=== PATIENT | female | born 1975 | race Caucasian/White ===

== ENCOUNTER 2016-12-27 19:19 | Inpatient (IN) | payer OTHER ==
[~2016-12-27] VITALS: Ht 152.4 cm; Wt 41.9 kg
--- NOTE | ~2016-12-27 | CON ---
[place], [place] REPORT OF CONSULTATION NAME: LEONELA TAYLOR UNIT #: [id number] ROOM: [facility] DOCTOR[facility] [birth year] DOS: GASTRO-ENDOSCOPIC CONSULTATION REPORT HISTORY OF PRESENT ILLNESS: The patient has presented with multiple medical problems, amongst which have been shortness of breath and also subxiphoid pain, dysphagia and therefore the patient was admitted and underwent panel of workup: White blood cells initially was 19, H and H of 10 and 36. Microcytic indices, D-dimer was 0.8, elevated. Comprehensive metabolic panel, electrolyte balance, liver function tests normal. Troponin within normal limits. Chest x-ray and CTA of the chest was performed and there was questionable 2 mm filling defect ____ segmental branch of the left lower pulmonary artery suspected with embolism. Troponin was repeatedly negative. CT scan of the neck was obtained since she was expressing of difficulty swallowing. No acute fracture or pathology identified. Hemoglobin A1c was 5.5. Soft tissue often neck was CT scanned and severe diffuse esophageal supraglottic left tissue thickening, consistent with supraglottitis and no evidence of abscess seen. A swallow study apparently has been done by Speech that has been considered negative. Therefore, we have started on PPI and dose of GI cocktail has been given to see if she feels any improvement in her swallowing. PAST MEDICAL HISTORY: Recent pulmonary embolism, COPD, advanced dependency to nicotine, pulmonary nodules. FAMILY HISTORY: COPD. SOCIAL HISTORY: Aggressive smoker, nonalcohol consumer. PAST SURGICAL HISTORY: Hysterectomy, cholecystectomy, T and A, left lower lung wedge resection, VATS. MEDICATIONS: List has been reviewed. ALLERGIES: To no known medication. REVIEW OF SYSTEMS: HEENT: Denies double vision, blurred vision. RESPIRATORY: Admits to some shortness of breath. CARDIOVASCULAR: Denies chest pain. DIGESTIVE SYSTEM: Difficulty to swallow. PHYSICAL EXAMINATION: GENERAL: Reveals extremely frail patient, anatomically is small in general. HEENT: Head normocephalic, nontraumatic. Mouth and buccal mucosa benign. NECK: Supple. No thyromegaly. No cervical lymphadenopathy. CHEST: Symmetric anatomy, decreased air entry in general. No wheeze. No rhonchi. HEART: Normal sinus rhythm. ABDOMEN: Soft, flat. No pulsatile mass. EXTREMITIES: No cyanosis. No pedal edema. [place], [place] REPORT OF CONSULTATION NAME: LEONELA TAYLOR UNIT #: [id number] ROOM: [facility] DOCTOR: ROSENDA MIX MD BIRTHDATE: [birth year] NEUROLOGIC: Alert, oriented to time, place, person. IMPRESSION: Dysphagia, supraglottitis, etiology unknown, leukocytosis, chronic obstructive pulmonary disease, pulmonary embolism. PLAN AND DISCUSSION: Due to the fact that the patient has acute involvement of pulmonary embolism, endoscopy is postponed. We are going to treat this patient with antibiotic, hoping that etiology of the supraglottitis to be only limited to infection and hopefully is going to be treated meanwhile. A speech evaluation has been done. She has been unable to swallow without any difficulty. Therefore, full liquid and PPI and GI cocktail, otherwise as dictated in past medical and surgical history. OTHER ADJUNCTIVE DIAGNOSES: Fibromyalgia, anxiety, major depression, ovarian carcinoma, status post resection and multiple repairs, status post cholecystectomy, section, oophorectomy, inguinal hernia repair, all have been recognized. Thank you very much indeed. ROSENDA MIX MD CM:CONSTR:REPORT OF CONSULTATION 1409 12/29/16 1036 interface
--- NOTE | ~2016-12-27 | CON ---
[place], [place] REPORT OF CONSULTATION NAME[id number] UNIT #: [id number] ROOM: 425 DOCTOR: CORAL CORDOVA MDDRE BIRTHDATE: [birth year] DOS: 12/28/2016 CONSULTATION REQUESTED BY: Hospitalist services. HISTORY OF PRESENT ILLNESS: A 41-year-old female who has been known to me from the past. The patient has not been seen in the office and did not show for the last appointment after discharge from [facility]. 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 The patient reported to the Emergency Room this morning, as she has been noted progressive increased coughing ongoing for the past 2 weeks, greater of the coughing has been noted moderate to severe with sputum expectoration intermittently. The patient was also noted symptoms of shortness of breath. The pain was described in the retrosternal area, worsened with deep inspiratory effort as well. She stated that she has also developed difficulty of swallowing and noted with quiet pain with swallowing, not able to eat or drink any food at this time in the last couple of days. The sputum expectoration described to be color of yellowish to green at that time. She denies symptoms of hemoptysis or recurrent symptom. As the patient presented to the Emergency Room, she has a CT of the chest done which was described with possibility of pulmonary embolism questionable in the left lower lobe pulmonary arterial branches. REVIEW OF SYSTEMS: CONSTITUTIONAL: Symptoms of fatigue and tiredness noted without symptoms of fever or chills. EYES: Denies any burning, redness, or tenderness. EAR, NOSE, THROAT SYMPTOMS: Denies sore throat, hoarseness, otalgia, postnasal drainage or epistaxis. CARDIOVASCULAR: Denies anginal pain, palpitations, edema of the lower extremities. GASTROINTESTINAL: Symptoms of dysphagia as noted and odynophagia without any recent weight loss described. The patient stated she has been noted dry heaves as well. Denies symptoms of abdominal pain. Denies any symptoms of hematemesis, melena, or hematochezia. MUSCULOSKELETAL: Denies acute joint pain, redness, or tenderness. SKIN: Denies lesions or rashes. GENITOURINARY: Denies any symptoms of dysuria, suprapubic pain, hematuria. CENTRAL NERVOUS SYSTEM: Denies dizziness, headache, diplopia or syncopal episodes. Remaining systems were reviewed, they were noted all negative. PAST MEDICAL HISTORY: 1. 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 2. History of chronic obstructive pulmonary disease. 3. History of chronic nicotine dependence. 4. Vitamin D deficiency. 5. Pulmonary nodules, which are noted as a result of the pulmonary Langerhans cell histiocytosis in the CT scan of the chest in 2016. [place], [place] REPORT OF CONSULTATION NAME: LEONELA TAYLOR UNIT #: [id number] ROOM: 425 DOCTOR: CORAL CORDOVA MD,DRE BIRTHDATE: [birth year] FAMILY HISTORY: Mother for the patient at 55 due to complications of COPD. History about father was unknown. SOCIAL HISTORY: The patient is , has 4 children, lived at home. She has been noted active tobacco use, continues to smoke cigarettes. The patient since teenager, pack of cigarettes per day. Denies any alcohol or illicit drug use or occupation related pulmonary exposure. PAST SURGICAL HISTORY: Noted. 1. Inguinal hernia repair on the right side. 2. Laparoscopic cholecystectomy. 3. . 4. Partial hysterectomy. 5. Ovary removal on the left side previously. 6. T and A. 7. Fiberoptic bronchoscopy on 11/2016. 8. Left upper lung wedge resection with the VATS procedure, which was done on 12/24/2015 with a diagnosis of pulmonary Langerhans cell histiocytosis established at that time. 9. History of hypothyroidism. HOME MEDICATIONS: Reported on admission was noted as use of: 1. Perforomist b.i.d. 2. Pulmicort Respules 0.25 mg b.i.d. 3. Ventolin HFA inhaler p.r.n. use. 4. Nifedipine 10 mg p.o. b.i.d. 5. Synthroid 25 mcg daily. ALLERGIES. Noted with no known drug allergies. PHYSICAL EXAMINATION: GENERAL: This is a 41-year-old female without any distress at this time. Height of the patient recorded on admission as 5 feet, weight of 92 pounds. VITAL SIGNS: Showed the temperature 99 degree Fahrenheit, normal temperature, respiratory 24-14, heart rate 60-61, blood pressure 152/80-161/60. Pulse oxygen saturation recorded on 2 liters nasal cannula 98% saturation. HEENT: Shows head was atraumatic. Eyes nonicterus. NECK: Supple. Oral mucosa was dry. CARDIOVASCULAR: S1, S2 audible. LUNGS: With general reduction in the breath sounds with scattered expiratory wheezing, no crackles. ABDOMEN: Flat, soft, nontender. EXTREMITIES: Show no edema, clubbing, cyanosis. CENTRAL NERVOUS SYSTEM: Cranial nerves 2-12 intact. No focal deficit. MUSCULOSKELETAL: Does not show any acute deformities. SKIN: Showed no lesions or rashes. LABORATORY DATA: The D-dimer noted minimally elevated at 0.80 on admission of 12/27/2016 in the ER. CBC in the ER on admission, WBC count 19.1, hemoglobin [place], [place] REPORT OF CONSULTATION NAME: LEONELA TAYLOR UNIT #: [id number] ROOM: 425 DOCTOR: CORAL CORDOVA MD,[facility] BIRTHDATE: [birth year] 10.9, hematocrit 36.7, and platelet 562,000. Order differentials were reported as 84% segmented neutrophils. CMP of 12/27/2016, normal BUN and creatinine and other electrolytes. Lactic acid 1.0 noted this morning. CBC of this morning repeated WBC count 14,000, hemoglobin 9.4, hematocrit 31.1, platelet count 450,000. BMP was noted as normal BUN and creatinine. RADIOLOGY DATA: Review chest x-ray that were done 12/27/2016 shows small area of scarring hyperinflation of the lungs without any acute pulmonary abnormalities. CT of the chest done on 12/27/2016 shows it was compared to the previous CT scan of the chest of 11/06/2015, resolution previous noted bilateral radicular nodular opacity noted, cyst noted is irregular in the lungs is consistent with past diagnosis of pulmonary histiocytosis, 2 mm filling defect was noted in the left lower pulmonary arterial branches with suspicion of pulmonary embolism. The other findings were not noted any clearcut. Postoperative changes noted in the left upper lobe bacterial resection. IMPRESSION: 1. The patient currently admitted to the hospital. The patient is currently treated for acute exacerbation of chronic obstructive pulmonary disease, acute tracheobronchitis, and acute on chronic nicotine abuse. The patient has a past history and diagnosis of pulmonary Langerhans cell histiocytosis as well. The patient has not been seen in my office after her past hospitalization. Diagnosis was established for pulmonary Langerhans cell histiocytosis. She has an appointment, which was made. The patient did not show up and have not made any further followup appointment. 2. History of hyperthyroidism. 3. Possibility of pulmonary embolism. The patient was also noted arterial pulmonary branches, which remained questionable finding at the present time. 4. The patient with significant odynophagia, rule out any malignant process infection such as herpetic infection, other involving the esophagus and other areas. PLAN OF MANAGEMENT: Agree with use of the Lovenox 1 mg/kg body made for this patient for the medical management of current suspected deep venous thrombosis . For the pulmonary embolism, ultrasound of lower extremity will be obtained to assess the patient's navigation for any clots in the lower extremities. Antibiotics of the patient will be continued. Obtain the sputum for Gram stain and culture as well. Continue antibiotic use of corticosteroids for the management of acute exacerbation of COPD. Continuation of the current antibiotics for the patient as well. The patient needs to be assessed definitely for odynophagia, dysphagia, thickening of the esophagus noted to have personally reviewed. CT of the chest with GI services including strong consideration for upper endoscopy needs to be performed to rule out a malignant process or other abnormalities. Other supportive therapy, plan and management and care. Usual care. She has been ordered nicotine replacement patches. She refused to use them, but they will be available of the patient in no crackles. The patient's medications if she would like to use them, they will be given to this patient. The patient had a detailed discussion about the risk for this patient on progression of the pulmonary Langerhans cell histiocytosis with chronic nicotine dependence. The patient does understand the risk of chronic [place], [place] REPORT OF CONSULTATION NAME: LEONELA TAYLOR [place] UNIT #: [id number] ROOM: 425 DOCTOR: KHOI VALENZUELA MDM BIRTHDATE: [birth year] nicotine dependence. Tobacco cessation was advised the patient once for the last time. The only treatment which has been known for pulmonary Langerhans cell histiocytosis with the lung transplantation. The patient was noted progressive worsening of the respiratory status in future. Thank you for allowing me to participate in the care of this patient. DRE MONCADA MD CM:CONSTR:REPORT OF CONSULTATION 1148 12/29/16 0528 interface
--- NOTE | ~2016-12-27 | PR ---
[place], [place] PROGRESS NOTE NAME: LEONELA TAYLOR UNIT #: [id number] ROOM: [facility] DOCTOR: CORAL CORDOVA MD,DRE BIRTHDATE: [birth year] DOS: 12/29/2016 SUBJECTIVE: She was seen and examined today, 12/29/2016. She has been noted with partial reduction of the respiratory symptoms, still noted significant cough for this patient at this time with some sputum expectoration. The patient denies symptoms of chest pain. Denies any symptoms of chest tightness. OBJECTIVE: VITAL SIGNS: For the patient which were recorded showed temperature noted as 99.3 degrees Fahrenheit and normal temperature, respiratory rate 20, heart rate 60, blood pressure 126/63. Pulse oxygen saturation on 2 L nasal cannula was noted 97% saturation. HEENT: Examination shows no new change. NECK: Supple. CARDIOVASCULAR: S1, S2 audible. LUNGS: Diffuse reduction in breath sounds with expiratory wheezing noted partial decreased from yesterday. ABDOMEN: Soft, nontender and flat. EXTREMITIES: The patient was noted without any edema. LABORATORY DATA: The PT and PTT this morning were noted as normal. BMP of the patient this morning remains normal. The culture of the sputum of the patient was pending from yesterday. The Gram stain showed many white blood cells, few gram-positive cocci in pairs and few gram-positive bacilli. CBC: WBC count 15.7, hemoglobin 9.7, hematocrit 32.2, platelet count 526,000. The patient had ultrasound of bilateral lower extremities, ordered by the primary care attending, was noted essentially without any evidence of deep venous thrombosis. IMPRESSION: 1. The patient who has been currently noted with acute exacerbation of chronic obstructive pulmonary disease, acute tracheobronchitis with history of pulmonary Langerhans cell histiocytosis which has been biopsy proven. 2. Chronic nicotine dependence as well. 3. Leukocytosis secondary to current acute infection. PLAN OF MANAGEMENT: The patient is already getting intravenous antibiotic that will be continued, nicotine replacement patches were ordered. The wheezing were noted only partially decreased from yesterday. The patient stated that she has been seen by hospitality recruiter at [facility] for pulmonary Langerhans cell histiocytosis management and was treated with steroids and currently taking other medications. [place], [place] PROGRESS NOTE NAME: LEONELA TAYLOR UNIT #: [id number] ROOM: [facility] DOCTOR: CORAL CORDOVA MD,DRE BIRTHDATE: [birth year] DRE MONCADA MD CM:PNTRANS [id number] DRE CORDOVA MD 12/30/16 0110 interface
[2016-12-27 01:20] VITALS: BP 152/80
[~2016-12-27 19:19] MED LIST: ATRALIN0.05% TP; AUGMENTIN 875875 MG PO; HYDROCODONE BIT1 T11 PO; MEDROL DOSEPAK4 MG PO; MINOCYCLINE PO; NKHM; NORFLEX100 MG PO; PERCOCET 325 MG1 TA2 PO; PRILOSEC20 MG PO; PROCARDIA10 MG PO; REMERON15 M1 PO; SYMBICORT1 AE1 INH; Synthroid,Levo75 MCG PO; TORADOL10 MG PO; VICODIN 5/500 505 MG; VITAMIN D34000 UNIT PO; ZOLOFT50 MG PO; ZYRTEC-D 5 MG-11 TER PO
[2016-12-27 19:27] VITALS: BP 132/98
[2016-12-27] MEDS ORDERED: PREDNISOLONE SO10 MG PO (19:31)
[2016-12-27] MEDS ORDERED: VENTOLIN 02.5 MG/3 M INH (19:32)
[2016-12-27] MEDS ORDERED: PERFOROMIS20 MCG/2 M INH (19:32)
[2016-12-27 20:17] LABS: BASO # 0.1 10*3/uL (0.0-0.1); BASO % 0.3 % (0.0-1.0); EOS # 0.2 10*3/uL (0.0-0.4); EOS % 0.8 % (1.0-4.0); HEMATOCRIT 36.7 % (37.0-47.0); HEMOGLOBIN 10.9 g/dl (12.0-16.0); LYMPH # 1.6 10*3/uL (1.3-4.4); LYMPH % 8.5 % (27.0-41.0); MEAN CELL VOLUME 80.8 fl (81.0-99.0); MEAN CORPUSCULAR HGB CONC 29.7 g/dl (33.0-37.0); MEAN PLATELET VOLUME 9.7 fl (9.6-12.3); MONO # 1.1 10*3/uL (0.1-1.0); MONO % 5.6 % (3.0-9.0); NEUT # 16.1 10*3/uL (2.3-7.9); NEUT % 84.1 % (47.0-73.0); PLATELET COUNT AUTOMATED 562 10*3/uL (130-400); RED BLOOD COUNT 4.54 10*6/uL (4.10-5.10); RED CELL DISTRI WIDTH 15.1 % (0-14.5); WHITE BLOOD COUNT 19.1 10*3/uL (4.8-10.8)
[2016-12-27 20:35] LABS: ALKALINE PHOSPHATASE 81 U/L (45-117); BUN 9 mg/dl (7-24); CHLORIDE 101 mmol/L (98-107); CPK 44 U/L (26-192); CREATININE 0.58 mg/dL (0.55-1.02); SGOT/AST 10 IU/L (3-35); SGPT/ALT 15 U/L (12-78); SODIUM 139 mmol/L (136-145); TOTAL PROTEIN 6.9 gm/dL (6.4-8.2)
[2016-12-27 20:38] LABS: TROPONIN I < 0.015 ng/ml (<0.045)
--- NOTE | 2016-12-28 01:20 | NUR ---
PT. ARRIVED TO FLOOR AT THIS TIME. PT. AMBULATED FROM CART TO BED, GAIT STEADY. NC @3L, O2 DEPENDENT AT HOME, DIMINISHED T/O, DRY COUGH, PT. SOB AT REST, SPO2 100. S1S2, HRR, PPP, NO EDEMA, PT. DENIES CP AT THIS TIME. BS NORMO X 4, PT. DENIES N/V/D. CALL LIGHT WITHIN REACH, BED IN LOWEST POSITION, WHEELS LOCKED. SEE SHIFT ASSESSMENT.
[2016-12-28] MEDS ORDERED: SYNTHROID25 MCG PO (01:23)
[2016-12-28] MEDS ORDERED: BUDESONIDE0.25 MG/2 INH (01:27)
[2016-12-28 01:28] VITALS: BP 152/80
--- NOTE | 2016-12-28 01:28 | NUR ---
MED REC COMPLETE WITH PATIENT ALERT AND ORIENTED
--- NOTE | 2016-12-28 01:40 | NUR ---
NOTIFIED DR. FRITZ THAT MEDREC IS COMPLETE ON PT. AT THIS TIME.
--- NOTE | 2016-12-28 02:41 | NUR ---
PT. OFF UNIT FOR CT OF SPINE. WAITING ON PT AND PTS. ANTIBIOTICS TO START.
[2016-12-28 04:03] LABS: BASO % 0.1 % (0.0-1.0); EOS # 0.1 10*3/uL (0.0-0.4); EOS % 0.8 % (1.0-4.0); HEMATOCRIT 31.1 % (37.0-47.0); HEMOGLOBIN 9.4 g/dl (12.0-16.0); LYMPH # 1.2 10*3/uL (1.3-4.4); LYMPH % 8.7 % (27.0-41.0); MEAN CELL VOLUME 80.6 fl (81.0-99.0); MEAN CORPUSCULAR HGB 24.4 pg (27.0-31.0); MEAN CORPUSCULAR HGB CONC 30.2 g/dl (33.0-37.0); MEAN PLATELET VOLUME 9.1 fl (9.6-12.3); MONO # 0.6 10*3/uL (0.1-1.0); MONO % 4.3 % (3.0-9.0); NEUT % 85.5 % (47.0-73.0); PLATELET COUNT AUTOMATED 450 10*3/uL (130-400); RED BLOOD COUNT 3.86 10*6/uL (4.10-5.10); RED CELL DISTRI WIDTH 15.2 % (0-14.5); WHITE BLOOD COUNT 14.1 10*3/uL (4.8-10.8)
[2016-12-28 04:16] LABS: BUN 9 mg/dl (7-24); CHLORIDE 105 mmol/L (98-107); CREATININE 0.49 mg/dL (0.55-1.02); MAGNESIUM 1.7 mg/dL (1.5-2.1); POTASSIUM 3.8 mmol/L (3.5-5.1); SODIUM 139 mmol/L (136-145)
[2016-12-28 04:21] LABS: CHOLESTEROL 103 mg/dL (<200); HDL CHOLESTEROL 28 mg/dl (40-60); LDL CHOLESTEROL 54 mg/dL (9-159); PHOSPHOROUS 4.3 mg/dL (2.5-4.9); TRIGLYCERIDES 107 mg/dl (<150); VLDL CHOLESTEROL 21 mg/dL (6-40)
[2016-12-28 08:00] VITALS: BP 161/60
--- NOTE | 2016-12-28 08:51 | NUR ---
SPEECH PATHOLOGY Orders for swallowing evaluation received and chart review completed. Evaluation attempted X2 this morning. On both attempts, patient's door was closed and upon entering, she was sound asleep. Will attempt again later. MELANIE NAVARRO MSCCC-SKI PATROLLER
--- NOTE | 2016-12-28 09:07 | NUR ---
DR. MONCADA HERE AND NOTIFIED OF CONSULT.
--- NOTE | 2016-12-28 09:34 | NUR ---
SPEECH PATHOLOGY Bedside swallow eval. completed as per orders. Patient was awake and able to participate. She reported feeling as if something is lodged in her chest, which she has been experiencing since last Sunday. Patient is currently ordered a full liquid diet. She refused any liquid presentations at this time, not even small sips of water, stating " I can't. It's that bad." She was noted to display congested cough at rest and generalized weakness. Oral assessment revealed lingual and buccal skills WNL in terms of strength, ROM and coordination. Labial asymmetry was displayed for retraction. As patient did not consume anything orally during this visit, full assessment of oral and pharyngeal swallowing skills could not be completed. Due to the symptoms she reports, it is recommended that she be seen by a anchor operator to rule out esophageal problems. Patient was educated on results and jihan. from this visit and she verbalized understanding. Patient's nurse was also educated and she reported that patient is scheduled to be seen by Dr. Nix. Will continue to monitor patient's status to determine if speech pathology services are warranted following further assessments by physicians. Refer to report in [email or web address] for further information. Thank you for this referral. MELANIE NAVARRO MSCCC-EDGE TRIMMING MACHINE OPERATOR
[2016-12-28 12:00] VITALS: BP 123/52
--- NOTE | 2016-12-28 15:20 | NUR ---
MEDICATED WITH MORPHINE ORDERED FOR PAIN WHILE SWALLOWING. RATES PAIN A 10 ON A PAIN SCALE OF 1-10.
[2016-12-28 16:00] VITALS: BP 131/63
[2016-12-28] MEDS ORDERED: NEURONTIN300 MG PO (18:23)
[2016-12-28] MEDS ORDERED: VENTOLIN INH (18:26)
[2016-12-28] MEDS ORDERED: SUBOXONE 8 MG-1 EACH SL (18:29)
--- NOTE | 2016-12-28 19:43 | NUR ---
PT TRIED TO START BREATHING TX AND THEN WAS GOING TO THROW UP. PT PLACED BACK ON HER 3L NC AND WAS TOLD WE WOULD COME BACK.
[2016-12-28 20:00] VITALS: BP 168/65
--- NOTE | 2016-12-28 20:00 | NUR ---
PATIENT WAS GIVEN IV ZOFRAN FOR NAUSEA AND ABD CRAMPING. PATIENT DENIES VOMITING BUT SAYS THEY ARE EXPERIENCING HYPERSALIVATION. WILL REASSESS AND MONITOR PATIENT.
--- NOTE | 2016-12-28 20:30 | NUR ---
PATIENT IS SITTING UP IN BED. PATIENT COMPLAINS OF NAUSEA AND CHEST PAIN THAT IS CAUSING DYSPHAGIA. PATIENT IS REFUSING ANY ORAL MEDICATIONS THAT ARE NOT LIQUID. PATIENT WAS PLEASANT UPON ASSESSMENT. PATIENT WAS GIVEN IV MORPHINE PER PATIENT REQUEST VERBALIZING A PAIN LEVEL OF 8/10 ON THE PAIN SCALE. SEE SHIFT ASSESSMENT.
--- NOTE | 2016-12-28 23:08 | NUR ---
IV MORPHINE PER PATIENT REQUEST HAS BEEN EFFECTIVE. PATIENT VERBALIZES A PAIN OF 3/10 AND RESTING COMFORTABLY IN BED.
[2016-12-29] VITALS: BP 121/62
--- NOTE | 2016-12-29 01:08 | NUR ---
PATIENT RESTING IN BED. PATIENT VERBALIZES SOME RELIEF FROM PAIN AND IS ATTEMPTING TO GET SOME SLEEP. PATIENT REORIENTED TO ROOM AND CALL LIGHT SYSTEM REINFORCED. SEE SHIFT ASSESSMENT.
[2016-12-29 06:18] LABS: HEMATOCRIT 32.2 % (37.0-47.0); HEMOGLOBIN 9.7 g/dl (12.0-16.0); MEAN CELL VOLUME 80.7 fl (81.0-99.0); MEAN CORPUSCULAR HGB 24.3 pg (27.0-31.0); MEAN CORPUSCULAR HGB CONC 30.1 g/dl (33.0-37.0); MEAN PLATELET VOLUME 10.1 fl (9.6-12.3); PLATELET COUNT AUTOMATED 526 10*3/uL (130-400); RED BLOOD COUNT 3.99 10*6/uL (4.10-5.10); RED CELL DISTRI WIDTH 15.2 % (0-14.5); WHITE BLOOD COUNT 15.7 10*3/uL (4.8-10.8)
--- NOTE | 2016-12-29 06:28 | NUR ---
PATIENT GIVEN IV MORPHINE FOR SHARP INTENSE CHEST PAIN RATED AN 8/10 ON THE PAIN SCALE. WILL CONTINUE TO MONITOR AND REASSESS.
--- NOTE | 2016-12-29 06:33 | NUR ---
PATIENT IS RESTING IN BED. PATIENT IS HAVING CHEST PAIN THAT IS EXACERBATED BY DEEP BREATHING AND SWALLOWING. PATIENT WAS GIVEN IV MORPHINE THAT HAS BEEN EFFECTIVE AND PATIENT STATES THEY ARE FEELING A LITTLE BETTER AND RATE THEIR PAIN A 6/10. WILL CONTINUE TO MONITOR PATIENT. SEE SHIFT ASSESSMENT.
[2016-12-29 06:34] LABS: BUN 8 mg/dl (7-24); CHLORIDE 103 mmol/L (98-107); CREATININE 0.42 mg/dL (0.55-1.02); IRON 12 ug/dL (50-170); SODIUM 137 mmol/L (136-145); TOTAL IRON BINDING CAPACITY 307 ug/dl (250-450)
[2016-12-29 06:58] LABS: ACT PARTIAL THROMBO TIME 23.1 SECONDS (20.8-31.5)
[2016-12-29 07:07] LABS: PLATELET SUFFICIENCY HIGH (NORMAL); POLYCHROMASIA SLIGHT; TOTAL CELLS COUNTED 100 #CELLS
[2016-12-29 08:00] VITALS: BP 126/63
--- NOTE | 2016-12-29 09:15 | NUR ---
SPEECH PATHOLOGY ATTEMPTED TO EVALUATE PATIENT'S SWALLOWING FUNCTION THIS AM. EXAM COULD NOT BE COMPLETED PATIENT IS CURRENTLY NPO FOR TESTING. SPOKE WITH PATIENT'S RN WHO CONFIRMED THAT PATIENT IS NPO AND WILL LIKELY REMAIN NPO FOR MAJORITY OF THE DAY. POC: WILL EVALUATE PATIENT'S OROPHARYNGEAL SWALLOWING FUNCTION WHEN ABLE. MILO KEMP-FRONT MAN
--- NOTE | 2016-12-29 09:24 | NUR ---
[place] in to talk to patient. Patient states lives at home with . There are few steps in the home. Physician: herbert donato [facility]acy: [facility] Home health services: none Patient's level of ADLs: INDEPENDENT Patient has working utilities: all working DME: none Follow-up physician's appointment after d/c: will be made by hosptialist nurse director upon discharge Does patient want to access PORTAL?: no Discharge plan discussed with patient, patient lives at home with , is independent in adls and ambulation, works, drives, denies any home needs. JOSEPH CASTELLANOS
[2016-12-29 09:32] LABS: FERRITIN 20.5 ng/mL (10.0-291.0)
[2016-12-29 12:00] VITALS: BP 142/64
--- NOTE | 2016-12-29 12:15 | NUR ---
TAKEN DOWN FOR CT SOFT TISSUE NECK.
--- NOTE | 2016-12-29 15:03 | NUR ---
MEDICATED WITH MORPHINE 2MG IV FOR COMPLAINTS OF THROAT PAIN. RATES PAIN A 10 ON A PAIN SCALE OF 1-10.
--- NOTE | 2016-12-29 15:15 | NUR ---
DEMOGRAPHIC'S FAXED TO [facility].
--- NOTE | 2016-12-29 15:22 | NUR ---
DR. MIX NOTIFIED OF CT SOFT TISSUE NECK RESULTS.
--- NOTE | 2016-12-29 15:34 | NUR ---
Shift chart check completed.24 HR chart check completed.
--- NOTE | 2016-12-29 15:50 | NUR ---
[facility]. REPORT GIVEN TO ROM LOPEZ RN.
[2016-12-29 16:00] VITALS: BP 141/65; BP 147/83
--- NOTE | 2016-12-29 16:11 | NUR ---
ON ARRIVAL FROM 4E PATIENT SITTING UP IN BED, ALERT,ORIENTED AND IN NO DISTRESS. NO STRIDOR HEARD, A FEW SCATTERED RHONCHI. OROPHARYNX IS RED WITH A FEW WHITE YELLOW PUSTULES NOTED. THROAT CULTURE COLLECTED PER ORDER. ASC SCREEN DONE. IV FLUIDS CONTINUE AT 100ML/HR. PT HAS AN OCCASIONAL HARSH, PRODUCTIVE COUGH. PT CLAIMS HER SPUTUM IS CLEAR. SEE ALL APPROPRIATE INTERVENTIONS.
[2016-12-29 20:00] VITALS: BP 163/72
--- NOTE | 2016-12-29 20:18 | NUR ---
1919 RESTING IN BED WITH HOB ELEVATED. CALL LIGHT IN REACH. PULSE OX 99% ON 3L. MOIST COUGH CONT. IV FLUIDS INFUSING WELL EDITH. NO RESPIRATORY DISTRESS NOTED 1929 MORPHINE 2MG IV GIVEN FOR C/O'S PAIN. WILL MONITOR. AWAITING CALL FROM [place] FOR TRANSFER.
--- NOTE | 2016-12-29 20:46 | NUR ---
2034 [facility] CALLED US WITH BED. PT INFORMED. HAS NO PREFERENCE FOR AMBULANCE FOR TRANSPORT. THIS HOSPITAL IS OUT OF THE RANGE FOR THE [facility] TO COME FOR PT. WC WORKING ON TRANSPORT NOW. LINE MAINTENANCE TECHNICIAN AWARE. EARLIER PAIN MED EFFECTIVE. PT RESTING IN BED WITH EYES CLOSED.
--- NOTE | 2016-12-29 20:58 | NUR ---
HAVING DIFFICULTY OBTAINED AN ANBULANCE FOR TRANSFER. WAITING ON [facility] TO CALL US BACK WITH FINAL ANSWER REGARDING TRANSFER. WILL CALL [facility] BACK IF UNABLE TO FIND TRANSPORT.
--- NOTE | 2016-12-29 21:18 | NUR ---
PROPER PAPERS SIGNED FOR TRANSFER. PAPERS FAXED TO [facility].
--- NOTE | 2016-12-29 21:50 | NUR ---
[facility] CAN NOT TRANSPORT PT UNTIL AM. WILL CALL [facility] TO ARRANGE POSSIBLE TRANSFER WITH THEM.
--- NOTE | 2016-12-29 22:07 | NUR ---
[facility] NOW CANNOT TAKE PT WITHOUT PRE-AUTHORIZATION FROM INSURANCE COMPANY AND NO ONE IS IN UNTIL SUNDAY AM. [facility] IS AWARE AND BED WILL BE HELD UNTIL THE AM. [facility] IS NOW RE-CALLING AMBULANCE TEAMS FOR AM TRANSPORT.
--- NOTE | 2016-12-29 22:12 | NUR ---
PT RESTING IN BED WITH EYES CLOSED. APPEARS TO BE SLEEPING. NO DISTRESS NOTED. CONDITION GUARDED.
--- NOTE | 2016-12-29 22:25 | NUR ---
DR. LARIOS CALLED - DUE TO DIFFICULTY FINDING GROUND TRANSPORT, [facility] RUNNER NOTIFIED. EXERCISE PHYSIOLOGIST CERTIFIED HERE AND AWARE. [facility] BEING CALLED.
--- NOTE | 2016-12-29 22:32 | NUR ---
[facility] DOES NOT WANT PT SENT BY [facility]. WILL TRY TO MAKE ARRANGEMENTS AND GET BACK TO US.
--- NOTE | 2016-12-29 22:55 | NUR ---
ARRANGEMENTS MADE FOR [facility] TO [facility] PT IN THE AM. DR. RIC WEEKS.
[2016-12-30] VITALS: BP 134/64
--- NOTE | 2016-12-30 00:24 | NUR ---
PT DENIES ANY CHANGE IN SWALLOWING OR BREATHING. NO COMPLAINTS OF DISCOMFORT NOTED. VSS.
--- NOTE | 2016-12-30 01:18 | NUR ---
AMBULANCE COMPANY WILL BE HERE AT APPROXIMATELY 0300 TO TRANSPORT PT. REPORT GIVEN TO WERO VELOZ, AT [facility].
--- NOTE | 2016-12-30 01:44 | NUR ---
PT UP TO VOID. INFORMED HER OF BEING TRANSPORTED AT APPROXIMATELY 0300. I ASKED HER IF THERE WAS ANYONE I COULD CALL. SHE SAID "THEY WILL BE GETTING UP AT 4:00. I WILL CALL THEM AND TELL THEM I'M ON MY WAY THEN." OTHER THAN FATIGUE AND WEAKNESS, NO DISTRESS NOTED OR CONVEYED.
--- NOTE | 2016-12-30 03:24 | NUR ---
[facility] HERE TO GET PT. REPORT GIVEN TO CONCRETE CONVEYOR OPERATOR. ENVELOPE WITH COPIES OF CHART/CDS GIVEN TO CREW. MORPHINE GIVEN PER PT REQUEST FOR PAIN. TWO PURSES, TWO BAGS WITH BELONGINGS (INCLUDING CUP WITH DENTURES IN PLASTIC BAG AND PT PUT CELL PHONE AND PLACEMENT DIRECTOR IN ONE OF HER PURSES). IVF REMOVED FROM IV PUMP TO [facility].
--- NOTE | 2016-12-30 03:28 | NUR ---
PT STATES PAIN RELIEVED FROM MORPHINE ALREADY. SPOKE WITH MAYTE, AT [facility], AND HE WILL TELL MAGDIEL THAT HER PT IS EN ROUTE.
== END 2016-12-30 03:24 | disposition short-term general hospital (02) | DRG 871 ==
LOC: ED 19:19 → 4E 12-28 00:08 → EDHOLD 12-28 00:08 → 4E 12-28 00:15 → ICCU 12-29 16:13
PROVIDERS: Emergency Medicine; Internal Medicine; Student in an Organized Health Care Education/Training Program; ADMIT Internal Medicine
DX: A41.9 Sepsis, unspecified organism (principal); I26.99 Other pulmonary embolism without acute cor pulmonale; J18.9 Pneumonia, unspecified organism; E44.0 Moderate protein-calorie malnutrition; J84.82 Adult pulmonary Langerhans cell histiocytosis; J44.0 Chronic obstructive pulmonary disease with (acute) lower respiratory infection; R13.10 Dysphagia, unspecified; F33.9 Major depressive disorder, recurrent, unspecified; J44.1 Chronic obstructive pulmonary disease with (acute) exacerbation; Z68.1 Body mass index [BMI] 19.9 or less, adult; D50.9 Iron deficiency anemia, unspecified; D47.3 Essential (hemorrhagic) thrombocythemia; F41.1 Generalized anxiety disorder; J20.9 Acute bronchitis, unspecified; E03.9 Hypothyroidism, unspecified; M79.7 Fibromyalgia; K21.9 Gastro-esophageal reflux disease without esophagitis; K27.9 Peptic ulcer, site unspecified, unspecified as acute or chronic, without hemorrhage or perforation; F17.210 Nicotine dependence, cigarettes, uncomplicated; I73.00 Raynaud's syndrome without gangrene; Z91.030 Bee allergy status; Z79.899 Other long term (current) drug therapy; Z90.710 Acquired absence of both cervix and uterus; Z80.9 Family history of malignant neoplasm, unspecified; Z85.43 Personal history of malignant neoplasm of ovary; Z90.49 Acquired absence of other specified parts of digestive tract; Z90.721 Acquired absence of ovaries, unilateral; Z83.6 Family history of other diseases of the respiratory system; Z84.89 Family history of other specified conditions

== ENCOUNTER 2017-04-28 22:13 | Inpatient (IN) | payer OTHER ==
[~2017-04-28] VITALS: Ht 152.4 cm; Wt 43.3 kg
--- NOTE | ~2017-04-28 | O ---
[place], [place] OPERATIVE NOTE NAME: LEONELA TAYLOR UNIT #: [id number] ROOM: 506 DOCTOR: DOMINGUEZ MARIAROSENDA BIRTHDATE: [birth year] DOS: 04/30/2017 GASTROENDOSCOPIC REPORT INDICATIONS: A 41-year-old patient who has presented with chief complaint of profound anemia, hemoglobin of 5, status post multi-transfusion, undergoing investigation. The patient with history of heavy smoking as well as steroid therapy chronically as well as history of pulmonary embolism, and was on Eliquis that she has recently stopped. PROCEDURE: Today's procedure part of investigation is panendoscopy and colonoscopy. PREMEDICATION: Versed and Diprivan. SCOPE: Olympus forward-viewing gastroscope Q10 video. REPORT: After putting the patient in left lateral position and application of lubricant to the scope, the scope was introduced. Thereafter, under direct visualization, advanced through the length of esophagus without difficulty. Gastric pouch was entered. Evidence of gastritis was seen. Antral biopsy was obtained. Duodenal bulb, second and third part within normal limit. The patient was gradually extubated and tolerated the procedure well. IMPRESSION: Gastritis, status post biopsy. We do not have a source of GI blood loss. We are going to proceed with colonoscopy. GASTROENDOSCOPIC REPORT INDICATIONS: A 41-year-old patient who has presented with chief complaint of profound anemia, hemoglobin of and hematocrit 21, status post 3 units packed cell transfusion and improvement of H and H. PROCEDURE: Today's procedure part of investigation is colonoscopy plus polypectomy. PREMEDICATION: Versed and Diprivan. SCOPE: Olympus folding colonoscope 10L video. REPORT: After putting the patient in left lateral position and application of lubricant to the scope, the scope was introduced. Thereafter, under direct visualization, I advanced the length of colon without difficulty. Base of the cecum explored, appendiceal orifice identified, ileocecal valve was defined. No acute pathology identified. A sessile polypoid lesion from sigmoid colon with piecemeal polypectomy removed. The patient was gradually extubated, tolerated procedure well. IMPRESSION: Sessile colonic polyp sigmoid colon, status post piecemeal [place], [place] OPERATIVE NOTE NAME: LEONELA TAYLOR UNIT #: [id number] ROOM: 506 DOCTOR: DOMINGUEZ MARIA,ROSENDA BIRTHDATE: [birth year] polypectomy. PLAN AND DISCUSSION: We have not defined the acute source of bleeding in this patient yet, the etiology could be secondary to chronic Eliquis therapy for past 6 months in addition to Excedrin intake, in addition to steroidal intakes , and combination of mucosal blood loss could be responsible for above. B12 and folate have been within normal limits. Her stool has been guaiac positive. She is an active smoker and her iron studies have been reviewed. Her iron levels have been low and iron supplementation is going to be undertaken. PPI of the choice, omeprazole 20 mg 1 q. day. Thank you very much indeed. ROSENDA MIX MD CM:OPRECORD:OPERATIVE NOTE 23 24 ROESNDA MIX MD 04/30/171923 interface
--- NOTE | ~2017-04-28 | PR ---
[place], [place] PROGRESS NOTE NAME: [id number] UNIT #: [id number] ROOM: 506 DOCTOR: PAULINO HALEY MD BIRTHDATE: [birth year] DOS: 05/02/2017 SUBJECTIVE: The patient is doing better. She started her iron pills. She is awake, alert and responsive. REVIEW OF SYSTEMS HEENT: No trouble swallowing. No double vision. No loss of vision. No pain. ENT AND RESPIRATORY: No wheeze. No change in voice. No cough. No shortness of breath. No coughing up blood. No epistaxis. CARDIOLOGIC: No chest pain. No dizziness. No irregular heartbeat. No leg edema. No palpitations. No shortness of breath. HEMATOLOGIC AND LYMPH: No past transfusion. No fatigue. No loss of appetite. No easy bruising. GASTROENEROLOGIC: No change in bowel habits. No vomiting blood. No abdominal cramping. No nausea. No vomiting. No diarrhea. No constipation. No blood in stool. FEMALE REPRODUCTIVE: No dyspareunia. No pelvic pain. MUSCULOSKELETAL: No back pain. No muscle pain or weakness. No tingling/numbness. UROLOGIC: No pain with urination. No difficulty urinating. No frequent urination. NEUROLOGIC: No burning pain in feet. No trouble with coordination. No loss of consciousness. No headache. No tingling/numbness. No memory loss. PHYSICAL EXAMINATION: GENERAL: Pleasant woman in no acute distress. VITAL SIGNS: Stable. She is afebrile. HEENT: Normocephalic, atraumatic NECK AND THYROID: Supple. No JVD, thyromegaly, or lymphadenopathy. HEART: Normal S1, S2. Regular rate and rhythm. LUNGS: Clear to auscultation and percussion. ABDOMEN: Soft. Nontender, nondistended. Bowel sounds present. EXTREMITIES: Normal ROM. No clubbing. No edema. LABORATORY DATA: White count of 11.4, hemoglobin of 9.9, hematocrit 34.8, MCV 76.7, platelet count of 113,000. ASSESSMENT: 1. Iron deficiency anemia. 2. Leukocytosis, reactive. 3. Thrombocytosis, reactive. 4. Status post upper and lower endoscopy, which was negative. PLAN: 1. The patient was started on iron, we will keep a close watch on this. We will further consult appropriately as an outpatient. 2. The counts to improve once her iron . She continues to be low, then further intervention. If she continues to have anemia then further intervention. Follow as outpatient discussed. [place], [place] PROGRESS NOTE NAME: LEONELA TAYLOR UNIT #: [id number] ROOM: 506 DOCTOR: PAULINO HALEY MD BIRTHDATE: [birth year] PAULINO HALEY MD CM:PNTRANS [id number] PAULINO HALEY MD 05/02/17 1706 interface
--- NOTE | ~2017-04-28 | PR ---
[place], [place] PROGRESS NOTE NAME: LEONELA TAYLOR UNIT #: [id number] ROOM: 506 DOCTOR: PAULINO HALEY MD BIRTHDATE: [birth year] DOS: 04/30/2017 The patient was seen because of severe anemia and leukocytosis. A workup has been ordered. Full consult will follow. PAULINO HALEY MD CM:PNTRANS [id number] PAULINO HALEY MD 05/01/17 0118 interface
--- NOTE | ~2017-04-28 | CON ---
[place], [place] REPORT OF CONSULTATION NAME: LEONELA TAYLOR UNIT #: [id number] ROOM: 506 DOCTOR: ROSENDA MIX MD BIRTHDATE: [birth year] DOS: 04/30/2017 HISTORY OF PRESENT ILLNESS: A 41-year-old patient who has presented with profound anemia and with a hemoglobin of 5.5 and hematocrit 21, status post 3 units of packed cell transfusion. The patient has been on Eliquis for pulmonary embolism in past and she has stopped a month ago. PAST MEDICAL HISTORY: Associated fibromyalgia, generalized anxiety, histiocytosis lung, major depression, peptic ulcer disease, Raynaud phenomenon, history of pulmonary embolism. PAST SURGICAL HISTORY: Lung biopsy, cholecystectomy, inguinal hernia repair, oophorectomy, partial hysterectomy, tonsillectomy. SOCIAL HISTORY: Active smoker, nonalcohol consumer. FAMILY HISTORY: Noncontributory. ALLERGIES: BEE STING. MEDICATIONS: List has been reviewed. HOME MEDICATIONS: Nifedipine and Procardia. REVIEW OF SYSTEMS: HEENT: Denies double vision, blurred vision. RESPIRATORY: Some shortness of breath. CARDIOVASCULAR: Denies chest pain. DIGESTIVE SYSTEM: No hematemesis, no hematochezia. PHYSICAL EXAMINATION: VITAL SIGNS: Stable, frail patient. HEENT: Head normocephalic, nontraumatic. Mouth and buccal mucosa benign. NECK: Supple, no thyromegaly, no cervical lymphadenopathy. CHEST: Symmetric anatomy, equal expansion. No wheeze, no rhonchi. HEART: Normal sinus rhythm, no gallop, no murmur. ABDOMEN: Soft. No hepato-organomegaly. Bowel sounds present. EXTREMITIES: No cyanosis, no pedal edema. NEUROLOGIC: Alert, oriented to time, place, person. Sensory, motor intact. Cranial nerves 2-12 intact. LABORATORY DATA: Newest lab results shows H and H of 11 and 33, status post transfusion. PLAN AND DISCUSSION: Comprehensive metabolic panel within normal limits. We are going to proceed with EGD and colonoscopy. Severe anemia is ____. [place], [place] REPORT OF CONSULTATION NAME: LEONELA TAYLOR UNIT #: [id number] ROOM: 506 DOCTOR: ROSENDA MIX MD BIRTHDATE: [birth year] ROSENDA MIX MD CM:CONSTR:REPORT OF CONSULTATION 1758 05/01/17 0403 interface
--- NOTE | ~2017-04-28 | PR ---
[place], [place] PROGRESS NOTE NAME: LEONELA TAYLOR UNIT #: [id number] ROOM: 506 DOCTOR: PAULINO HALEY MD BIRTHDATE: [birth year] DOS: 05/01/2017 SUBJECTIVE: The patient is doing better. She is awake, alert, and responsive. REVIEW OF SYSTEMS HEENT: No trouble swallowing. No double vision. No loss of vision. No pain. ENT AND RESPIRATORY: No wheeze. No change in voice. No cough. No shortness of breath. No coughing up blood. No epistaxis. CARDIOLOGIC: No chest pain. No dizziness. No irregular heartbeat. No leg edema. No palpitations. No shortness of breath. HEMATOLOGIC AND LYMPH: No past transfusion. No fatigue. No loss of appetite. No easy bruising. GASTROENTEROLOGIC: No change in bowel habits. No vomiting blood. No abdominal cramping. No nausea. No vomiting. No diarrhea. No constipation. No blood in stool. FEMALE REPRODUCTIVE: No dyspareunia. No pelvic pain. MUSCULOSKELETAL: No back pain. No muscle pain or weakness. No tingling/numbness. UROLOGIC: No pain with urination. No difficulty urinating. No frequent urination. NEUROLOGIC: No burning pain in feet. No trouble with coordination. No loss of consciousness. No headache. No tingling/numbness. No memory loss. PHYSICAL EXAMINATION GENERAL: A pleasant woman in no apparent distress. VITAL SIGNS: Stable. She is afebrile. HEENT: Normocephalic, atraumatic. NECK AND THYROID: Supple. No JVD, thyromegaly, or lymphadenopathy. HEART: Normal S1, S2. Regular rate and rhythm. LUNGS: Clear to auscultation and percussion. ABDOMEN: Soft. Nontender, nondistended. Bowel sounds present. EXTREMITIES: Normal ROM. No clubbing. No edema. LABORATORY DATA: White count of 11.5, hemoglobin 10.5, hematocrit 35.3, MCV 74.3, and platelet count of 460. EGFR is more than 60. TIBC 421. Iron 15. Saturation 3. UIBC 46. Haptoglobin is 146. Ferritin is 11.3. B12 is 394. Folic acid is 8.61. ASSESSMENT: Iron deficiency anemia with gastrointestinal workup negative with upper and lower endoscopy negative. PLAN: She is status post multiple units of packed RBC. GI workup is negative; though, she is iron deficient, we will start her on iron pills and follow her counts closely. She may need a capsule endoscopy if things do not improve. Discussed. [place], [place] PROGRESS NOTE NAME: LEONELA TAYLOR UNIT #: [id number] ROOM: 506 DOCTOR: PAULINO HALEY MD BIRTHDATE: [birth year] PAULINO HALEY MD CM:PNTRANS 1355 7 PAULINO HALEY MD 05/02/17215 interface
[~2017-04-28 22:13] MED LIST changes: +BUDESONIDE0.25 MG/2 INH; +NEURONTIN300 MG PO; +PERFOROMIS20 MCG/2 M INH; +PREDNISOLONE SO10 MG PO; +SUBOXONE 8 MG-1 EACH SL; +SYNTHROID25 MCG PO; +VENTOLIN 02.5 MG/3 M INH; +VENTOLIN INH
[2017-04-28 22:30] VITALS: BP 126/66
[2017-04-28 22:37] LABS: HEMATOCRIT 21.4 % (37.0-47.0); MEAN CELL VOLUME 64.7 fl (81.0-99.0); MEAN CORPUSCULAR HGB 16.6 pg (27.0-31.0); MEAN CORPUSCULAR HGB CONC 25.7 g/dl (33.0-37.0); NUCLEATED RED BLOOD CELL 0.1 10*3/uL (0.0-0.0); NUCLEATED RED BLOOD CELL 0.4 % (0.0-0.0); PLATELET COUNT AUTOMATED 582 10*3/uL (130-400); RED BLOOD COUNT 3.31 10*6/uL (4.10-5.10); RED CELL DISTRI WIDTH 18.4 % (0-14.5); WHITE BLOOD COUNT 13.4 10*3/uL (4.8-10.8)
[2017-04-28 22:41] LABS: HEMOGLOBIN 5.5 g/dl (12.0-16.0)
[2017-04-28 22:50] LABS: ACT PARTIAL THROMBO TIME 21.2 SECONDS (20.8-31.5); INTERNATIONAL NORM RATIO 1.1 (2.0-3.5)
[2017-04-28 22:56] LABS: BASOPHILS 1 % (0-1); TOTAL CELLS COUNTED 100 #CELLS
[2017-04-28 22:57] LABS: BURR CELLS FEW; TARGET CELLS FEW
[2017-04-28 22:58] LABS: OVALOCYTES FEW; PLATELET SUFFICIENCY HIGH (NORMAL)
[2017-04-28 23:06] LABS: ALBUMIN 3.1 gm/dl (3.1-4.5); ALKALINE PHOSPHATASE 54 U/L (45-117); BUN 12 mg/dl (7-24); CHLORIDE 105 mmol/L (98-107); CREATININE 0.45 mg/dL (0.55-1.02); POTASSIUM 3.9 mmol/L (3.5-5.1); SGOT/AST 13 IU/L (3-35); SGPT/ALT 20 U/L (12-78); SODIUM 139 mmol/L (136-145); TOTAL PROTEIN 5.9 gm/dL (6.4-8.2); TROPONIN I < 0.015 ng/ml (<0.045)
[2017-04-29] VITALS (11 sets, daily range): BP systolic 115–161; BP diastolic 52–79
[2017-04-29 04:42] LABS: BASO # 0.1 10*3/uL (0.0-0.1); BASO % 0.5 % (0.0-1.0); EOS # 0.4 10*3/uL (0.0-0.4); EOS % 3.1 % (1.0-4.0); HEMATOCRIT 25.4 % (37.0-47.0); HEMOGLOBIN 6.9 g/dl (12.0-16.0); LYMPH # 3.2 10*3/uL (1.3-4.4); LYMPH % 27.1 % (27.0-41.0); MEAN CORPUSCULAR HGB CONC 27.2 g/dl (33.0-37.0); MONO # 0.8 10*3/uL (0.1-1.0); MONO % 6.5 % (3.0-9.0); NEUT # 7.4 10*3/uL (2.3-7.9); NEUT % 62.4 % (47.0-73.0); NUCLEATED RED BLOOD CELL 0.1 10*3/uL (0.0-0.0); NUCLEATED RED BLOOD CELL 0.4 % (0.0-0.0); PLATELET COUNT AUTOMATED 510 10*3/uL (130-400); RED BLOOD COUNT 3.64 10*6/uL (4.10-5.10); RED CELL DISTRI WIDTH 22.8 % (0-14.5); WHITE BLOOD COUNT 11.9 10*3/uL (4.8-10.8)
[2017-04-29 04:49] LABS: MEAN CELL VOLUME 69.8 fl (81.0-99.0)
[2017-04-29 04:54] LABS: ACT PARTIAL THROMBO TIME 21.8 SECONDS (20.8-31.5)
[2017-04-29 05:11] LABS: ALBUMIN 2.7 gm/dl (3.1-4.5); ALKALINE PHOSPHATASE 49 U/L (45-117); BUN 13 mg/dl (7-24); CHLORIDE 107 mmol/L (98-107); CHOLESTEROL 124 mg/dL (<200); CREATININE 0.49 mg/dL (0.55-1.02); HDL CHOLESTEROL 53 mg/dl (40-60); LDL CHOLESTEROL 57 mg/dL (9-159); POTASSIUM 3.6 mmol/L (3.5-5.1); SGOT/AST 15 IU/L (3-35); SGPT/ALT 17 U/L (12-78); SODIUM 142 mmol/L (136-145); TOTAL PROTEIN 5.3 gm/dL (6.4-8.2); TRIGLYCERIDES 71 mg/dl (<150); VLDL CHOLESTEROL 14 mg/dL (6-40)
[2017-04-29 05:13] LABS: FREE T4 0.85 ng/dl (0.76-1.46)
[2017-04-29 06:34] LABS: BILIRUBIN NEGATIVE (NEGATIVE); BLOOD NEGATIVE (NEGATIVE); CLARITY CLEAR (CLEAR); COLOR YELLOW (YELLOW); GLUCOSE NEGATIVE (NEGATIVE); KETONE TRACE (NEGATIVE); LEUKO ESTERASE NEGATIVE (NEGATIVE); NITRITE NEGATIVE (NEGATIVE); UROBILINOGEN 0.2 E.U./dl (0.2-1.0)
[2017-04-29 07:04] LABS: BACTERIA TRACE; EPITHELIAL CELLS 16-20; MUCOUS 2+
[2017-04-29 08:40] LABS: VITAMIN D, 25-HYDROXY 15.5 ng/mL (30-100)
[2017-04-29 11:12] LABS: BASO # 0.1 10*3/uL (0.0-0.1); BASO % 0.7 % (0.0-1.0); EOS # 0.4 10*3/uL (0.0-0.4); LYMPH # 2.3 10*3/uL (1.3-4.4); LYMPH % 19.8 % (27.0-41.0); MEAN CORPUSCULAR HGB 22.3 pg (27.0-31.0); MEAN CORPUSCULAR HGB CONC 30.3 g/dl (33.0-37.0); MEAN PLATELET VOLUME 9.3 fl (9.6-12.3); MONO # 0.6 10*3/uL (0.1-1.0); MONO % 4.8 % (3.0-9.0); NEUT # 8.2 10*3/uL (2.3-7.9); NEUT % 70.9 % (47.0-73.0); NUCLEATED RED BLOOD CELL 0.1 10*3/uL (0.0-0.0); NUCLEATED RED BLOOD CELL 0.5 % (0.0-0.0); PLATELET COUNT AUTOMATED 441 10*3/uL (130-400); RED BLOOD COUNT 4.84 10*6/uL (4.10-5.10); RED CELL DISTRI WIDTH 22.9 % (0-14.5); WHITE BLOOD COUNT 11.6 10*3/uL (4.8-10.8)
[2017-04-29 11:14] LABS: HEMATOCRIT 35.6 % (37.0-47.0); HEMOGLOBIN 10.8 g/dl (12.0-16.0); MEAN CELL VOLUME 73.6 fl (81.0-99.0)
[2017-04-30] VITALS (10 sets, daily range): BP systolic 100–132; BP diastolic 59–93
[2017-04-30 07:10] LABS: IRON 15 ug/dL (50-170); TOTAL IRON BINDING CAPACITY 421 ug/dl (250-450)
[2017-04-30 07:16] LABS: HEMOGLOBIN 11.2 g/dl (12.0-16.0); MEAN CELL VOLUME 74.7 fl (81.0-99.0); MEAN CORPUSCULAR HGB CONC 29.5 g/dl (33.0-37.0); MEAN PLATELET VOLUME 9.7 fl (9.6-12.3); NUCLEATED RED BLOOD CELL 0.2 % (0.0-0.0); PLATELET COUNT AUTOMATED 470 10*3/uL (130-400); RED BLOOD COUNT 5.09 10*6/uL (4.10-5.10); RED CELL DISTRI WIDTH 23.9 % (0-14.5); WHITE BLOOD COUNT 9.7 10*3/uL (4.8-10.8)
[2017-04-30 07:28] LABS: RETICULOCYTE % 0.55 % (0.50-2.50)
[2017-04-30 07:45] LABS: ACANTHOCYTES FEW; BASOPHILS 2 % (0-1); BURR CELLS FEW; MICROCYTOSIS SLIGHT; PLATELET SUFFICIENCY HIGH (NORMAL); POLYCHROMASIA SLIGHT; SCHISTOCYTES FEW; TOTAL CELLS COUNTED 100 #CELLS
[2017-05-01 00:09] VITALS: BP 114/64
[2017-05-01 06:20] LABS: BASO # 0.1 10*3/uL (0.0-0.1); BASO % 0.8 % (0.0-1.0); EOS # 0.6 10*3/uL (0.0-0.4); EOS % 4.9 % (1.0-4.0); HEMATOCRIT 35.3 % (37.0-47.0); HEMOGLOBIN 10.5 g/dl (12.0-16.0); LYMPH # 1.8 10*3/uL (1.3-4.4); LYMPH % 15.7 % (27.0-41.0); MEAN CELL VOLUME 74.3 fl (81.0-99.0); MEAN CORPUSCULAR HGB 22.1 pg (27.0-31.0); MEAN CORPUSCULAR HGB CONC 29.7 g/dl (33.0-37.0); MEAN PLATELET VOLUME 9.8 fl (9.6-12.3); MONO # 0.7 10*3/uL (0.1-1.0); MONO % 6.2 % (3.0-9.0); NEUT # 8.3 10*3/uL (2.3-7.9); NEUT % 71.9 % (47.0-73.0); PLATELET COUNT AUTOMATED 460 10*3/uL (130-400); RED BLOOD COUNT 4.75 10*6/uL (4.10-5.10); RED CELL DISTRI WIDTH 25.2 % (0-14.5); WHITE BLOOD COUNT 11.5 10*3/uL (4.8-10.8)
[2017-05-01 06:51] LABS: ALBUMIN 2.4 gm/dl (3.1-4.5); BUN 7 mg/dl (7-24); CHLORIDE 108 mmol/L (98-107); POTASSIUM 3.3 mmol/L (3.5-5.1); SODIUM 143 mmol/L (136-145)
[2017-05-01 06:54] LABS: ALKALINE PHOSPHATASE 56 U/L (45-117); CREATININE 0.47 mg/dL (0.55-1.02); SGOT/AST 16 IU/L (3-35); SGPT/ALT 22 U/L (12-78)
[2017-05-01 08:00] VITALS: BP 124/64
[2017-05-01 16:00] VITALS: BP 120/67
[2017-05-02 00:01] VITALS: BP 129/80
[2017-05-02 07:19] LABS: BASO # 0.1 10*3/uL (0.0-0.1); BASO % 0.5 % (0.0-1.0); EOS # 0.5 10*3/uL (0.0-0.4); EOS % 4.5 % (1.0-4.0); HEMATOCRIT 34.8 % (37.0-47.0); HEMOGLOBIN 9.9 g/dl (12.0-16.0); LYMPH # 2.2 10*3/uL (1.3-4.4); LYMPH % 19.1 % (27.0-41.0); MEAN CELL VOLUME 76.7 fl (81.0-99.0); MEAN CORPUSCULAR HGB 21.8 pg (27.0-31.0); MEAN CORPUSCULAR HGB CONC 28.4 g/dl (33.0-37.0); MEAN PLATELET VOLUME 9.9 fl (9.6-12.3); MONO # 0.8 10*3/uL (0.1-1.0); MONO % 6.7 % (3.0-9.0); NEUT # 7.8 10*3/uL (2.3-7.9); NEUT % 68.6 % (47.0-73.0); PLATELET COUNT AUTOMATED 413 10*3/uL (130-400); RED BLOOD COUNT 4.54 10*6/uL (4.10-5.10); RED CELL DISTRI WIDTH 25.5 % (0-14.5); WHITE BLOOD COUNT 11.4 10*3/uL (4.8-10.8)
[2017-05-02 07:39] LABS: CHLORIDE 108 mmol/L (98-107); POTASSIUM 3.7 mmol/L (3.5-5.1); SODIUM 142 mmol/L (136-145)
[2017-05-02 08:00] VITALS: BP 116/80
[2017-05-02 08:10] LABS: ALBUMIN 2.4 gm/dl (3.1-4.5); ALKALINE PHOSPHATASE 52 U/L (45-117); BUN 5 mg/dl (7-24); CREATININE 0.44 mg/dL (0.55-1.02); SGOT/AST 16 IU/L (3-35); SGPT/ALT 19 U/L (12-78)
[2017-05-02] MEDS ORDERED: FEROSUL325 MG PO (14:06)
== END 2017-05-02 14:57 | disposition home or self-care (01) | DRG 391 ==
LOC: ED 22:13 → EDHOLD 23:16 → 5E 23:16
PROVIDERS: Family Medicine; Hospitalist; Internal Medicine; Internal Medicine Hematology & Oncology; Internal Medicine Nephrology; Student in an Organized Health Care Education/Training Program
PROC: 30233N1 Transfusion of Nonautologous Red Blood Cells into Peripheral Vein, Percutaneous Approach (ICD-10-PCS; 2017-04-29)
PROC: 0DB68ZX Excision of Stomach, Via Natural or Artificial Opening Endoscopic, Diagnostic (ICD-10-PCS; principal; 2017-04-30)
PROC: 0DBN8ZZ Excision of Sigmoid Colon, Via Natural or Artificial Opening Endoscopic (ICD-10-PCS; principal; 2017-04-30)
DX: K29.70 Gastritis, unspecified, without bleeding (principal); E43 Unspecified severe protein-calorie malnutrition; E87.8 Other disorders of electrolyte and fluid balance, not elsewhere classified; E83.39 Other disorders of phosphorus metabolism; J84.82 Adult pulmonary Langerhans cell histiocytosis; Z99.81 Dependence on supplemental oxygen; D47.3 Essential (hemorrhagic) thrombocythemia; E11.9 Type 2 diabetes mellitus without complications; F33.9 Major depressive disorder, recurrent, unspecified; Z68.1 Body mass index [BMI] 19.9 or less, adult; K27.9 Peptic ulcer, site unspecified, unspecified as acute or chronic, without hemorrhage or perforation; D50.9 Iron deficiency anemia, unspecified; I73.00 Raynaud's syndrome without gangrene; M79.7 Fibromyalgia; E87.6 Hypokalemia; F17.210 Nicotine dependence, cigarettes, uncomplicated; E55.9 Vitamin D deficiency, unspecified; F41.1 Generalized anxiety disorder; Z90.710 Acquired absence of both cervix and uterus; Z91.030 Bee allergy status; Z79.899 Other long term (current) drug therapy; Z90.49 Acquired absence of other specified parts of digestive tract; Z90.721 Acquired absence of ovaries, unilateral; Z82.49 Family history of ischemic heart disease and other diseases of the circulatory system; Z84.89 Family history of other specified conditions

== ENCOUNTER → 2017-05-11 | Outpatient (CLI) | payer OTHER ==
[~2017-05-11] MED LIST changes: +FEROSUL325 MG PO
[2017-05-11 14:41] LABS: URINE AMPHETAMINES < 1000 (1000ng/ml); URINE BARBITURATES < 200 (200ng/ml); URINE BENZODIAZEPINES < 200 (200ng/ml); URINE CANNABINOIDS (THC) < 50 (50ng/ml); URINE COCAINE < 300 (300ng/ml); URINE OPIATES < 300 (300ng/ml)
[2017-05-11 14:42] LABS: URINE METHADONE < 300 (300ng/ml)
[2017-05-11 14:45] LABS: URINE PHENCYCLIDINE < 25 (25ng/ml)
== END | disposition home or self-care (01) ==
LOC: LAB 13:48
PROVIDERS: Internal Medicine
DX: F11.20 Opioid dependence, uncomplicated (principal)

== ENCOUNTER 2017-11-27 15:25 | Emergency (ER) | payer OTHER ==
[~2017-11-27] VITALS: Ht 152.4 cm; Wt 44.5 kg
--- NOTE | ~2017-11-27 | EKG ---
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
[~2017-11-27 15:25] MED LIST changes: -NEURONTIN300 MG PO; +NEURONTIN600 MG PO
[2017-11-27 15:56] LABS: HEMATOCRIT 43.3 % (37.0-47.0); HEMOGLOBIN 13.7 g/dl (12.0-16.0); MEAN CORPUSCULAR HGB CONC 31.6 g/dl (33.0-37.0); PLATELET COUNT AUTOMATED 402 10*3/uL (130-400); RED BLOOD COUNT 4.56 10*6/uL (4.10-5.10); RED CELL DISTRI WIDTH 16.3 % (0-14.5); WHITE BLOOD COUNT 16.6 10*3/uL (4.8-10.8)
[2017-11-27 16:05] LABS: ACT PARTIAL THROMBO TIME 25.5 SECONDS (20.8-31.5)
[2017-11-27 16:13] LABS: ALBUMIN 3.7 gm/dl (3.1-4.5); ALKALINE PHOSPHATASE 70 U/L (45-117); BUN 8 mg/dl (7-24); CHLORIDE 105 mmol/L (98-107); CREATININE 0.54 mg/dL (0.55-1.02); POTASSIUM 3.6 mmol/L (3.5-5.1); SGOT/AST 16 IU/L (3-35); SGPT/ALT 23 U/L (12-78); SODIUM 139 mmol/L (136-145)
[2017-11-27 16:15] LABS: TROPONIN I < 0.015 ng/ml (<0.045)
[2017-11-27 16:19] LABS: BASOPHILS 1 % (0-1); TOTAL CELLS COUNTED 100 #CELLS
[2017-11-27 16:20] LABS: PLATELET SUFFICIENCY NORMAL (NORMAL)
[2017-11-27 16:25] LABS: BILIRUBIN NEGATIVE (NEGATIVE); BLOOD NEGATIVE (NEGATIVE); CLARITY CLEAR (CLEAR); COLOR YELLOW (YELLOW); GLUCOSE NEGATIVE (NEGATIVE); KETONE NEGATIVE (NEGATIVE); LEUKO ESTERASE NEGATIVE (NEGATIVE); NITRITE NEGATIVE (NEGATIVE); PH 6.5 (5.0-9.0); UROBILINOGEN 0.2 E.U./dl (0.2-1.0)
[2017-11-27 16:44] VITALS: BP 121/72
[2017-11-27] MEDS ORDERED: PREDNISONE50 MG PO (16:52)
[2017-11-27] MEDS ORDERED: LEVAQUIN750 M1 PO (16:52)
[2017-11-27] MEDS ORDERED: CORTISPORIN SUS10 ML OT (16:52)
[2017-11-27 16:54] LABS: EPITHELIAL CELLS 0-2; WBC 0-2 wbc/hpf (0-5)
[2017-12-07] MEDS ORDERED: DELTASONE20 M1 PO (22:07)
[2017-12-07] MEDS ORDERED: BUSPAR15 MG PO (22:37)
[2017-12-08] MEDS ORDERED: PROTONIX40 MG PO (11:05)
[2017-12-08] MEDS ORDERED: METHOTREXATE2.5 MG PO (11:06)
[2017-12-08] MEDS ORDERED: LEUCOVORIN CALCI5 MG PO (11:06)
[2017-12-11] MEDS ORDERED: VIBRAMYCIN100 MG PO (13:01)
== END 2017-11-27 17:08 | disposition home or self-care (01) ==
LOC: ED 15:25
PROVIDERS: Nurse Practitioner Family
DX: J44.9 Chronic obstructive pulmonary disease, unspecified (principal); H60.91 Unspecified otitis externa, right ear; E03.9 Hypothyroidism, unspecified; F17.200 Nicotine dependence, unspecified, uncomplicated; Z91.030 Bee allergy status; Z79.899 Other long term (current) drug therapy

== ENCOUNTER → 2018-04-08 | Outpatient (CLI) | payer MEDICAID ==
[~2018-04-08] MED LIST changes: +BUSPAR15 MG PO; +CORTISPORIN SUS10 ML OT; +DELTASONE20 M1 PO; +LEUCOVORIN CALCI5 MG PO; +LEVAQUIN750 M1 PO; +METHOTREXATE2.5 MG PO; +PREDNISONE50 MG PO; +PROTONIX40 MG PO; +VIBRAMYCIN100 MG PO
[2018-04-08 19:08] LABS: URINE AMPHETAMINES > 1000 (1000ng/ml); URINE BARBITURATES < 200 (200ng/ml); URINE BENZODIAZEPINES < 200 (200ng/ml); URINE CANNABINOIDS (THC) < 50 (50ng/ml); URINE COCAINE < 300 (300ng/ml); URINE METHADONE < 300 (300ng/ml); URINE OPIATES < 300 (300ng/ml); URINE PHENCYCLIDINE < 25 (25ng/ml)
== END | disposition home or self-care (01) ==
LOC: LAB 18:23
PROVIDERS: Internal Medicine
DX: F11.20 Opioid dependence, uncomplicated (principal)

== ENCOUNTER → 2018-06-20 | Outpatient (CLI) | payer BC, OTHER ==
[2018-06-20 10:25] VITALS: BP 112/61
[2018-06-20 10:40] VITALS: BP 106/67
== END | disposition home or self-care (01) ==
LOC: PHLEB 00:29
DX: D75.1 Secondary polycythemia (principal)

== ENCOUNTER → 2018-08-06 | Outpatient (CLI) | payer OTHER ==
[2018-08-06 13:57] LABS: URINE AMPHETAMINES < 1000 (1000ng/ml); URINE BARBITURATES < 200 (200ng/ml); URINE BENZODIAZEPINES < 200 (200ng/ml); URINE CANNABINOIDS (THC) < 50 (50ng/ml); URINE COCAINE < 300 (300ng/ml); URINE METHADONE < 300 (300ng/ml); URINE OPIATES < 300 (300ng/ml)
[2018-08-06 14:00] LABS: URINE PHENCYCLIDINE < 25 (25ng/ml)
== END | disposition home or self-care (01) ==
LOC: LAB 12:41
PROVIDERS: Internal Medicine
DX: F11.20 Opioid dependence, uncomplicated (principal)

== ENCOUNTER → 2019-09-25 | Outpatient (CLI) | payer BC | END | disposition home or self-care (01) | LOC: MAMMO 13:30 | DX: Z12.31 Encounter for screening mammogram for malignant neoplasm of breast (principal) ==

== ENCOUNTER 2020-02-02 07:12 | Observation (INO) | payer BC ==
[~2020-02-02] VITALS: Ht 152.4 cm; Wt 42.7 kg
[2020-02-02] VITALS (11 sets, daily range): BP systolic 90–141; BP diastolic 48–98
[2020-02-02 07:36] LABS: BASO # 0.1 10*3/uL (0.0-0.1); BASO % 0.4 % (0.0-1.0); EOS # 0.3 10*3/uL (0.0-0.4); EOS % 2.2 % (1.0-4.0); HEMATOCRIT 49.4 % (37.0-47.0); LYMPH % 20.3 % (27.0-41.0); MEAN CELL VOLUME 97.8 fl (81.0-99.0); MEAN CORPUSCULAR HGB 30.1 pg (27.0-31.0); MEAN CORPUSCULAR HGB CONC 30.8 g/dl (33.0-37.0); MEAN PLATELET VOLUME 10.2 fl (9.6-12.3); MONO # 0.9 10*3/uL (0.1-1.0); MONO % 6.2 % (3.0-9.0); NEUT # 10.4 10*3/uL (2.3-7.9); NEUT % 70.6 % (47.0-73.0); PLATELET COUNT AUTOMATED 297 10*3/uL (130-400); RED BLOOD COUNT 5.05 10*6/uL (4.10-5.10); RED CELL DISTRI WIDTH 12.7 % (0-14.5); WHITE BLOOD COUNT 14.7 10*3/uL (4.8-10.8)
[2020-02-02 08:01] LABS: ALBUMIN 3.7 gm/dl (3.1-4.5); ALKALINE PHOSPHATASE 61 U/L (45-117); BUN 16 mg/dl (7-24); CHLORIDE 105 mmol/L (98-107); CREATININE 0.59 mg/dL (0.55-1.02); POTASSIUM 3.9 mmol/L (3.5-5.1); SGOT/AST 32 IU/L (3-35); SGPT/ALT 35 U/L (12-78); SODIUM 143 mmol/L (136-145); TOTAL PROTEIN 6.4 gm/dL (6.4-8.2)
--- NOTE | 2020-02-02 08:05 | NUR ---
PT RESTING QUIELTY, DENIES SOB A THIS TIME, POX 94% 3L. CALL LIGHT IN REACH WILL MONITOR.
[2020-02-02 08:08] LABS: TROPONIN I 0.137 ng/ml (<0.045)
[2020-02-02 08:13] LABS: ACT PARTIAL THROMBO TIME 27.3 SECONDS (20.0-32.1)
--- NOTE | 2020-02-02 10:48 | NUR ---
PT RESTING QUIELTY, DENIES ANY CHEST PAIN AT THE PRESENT TIME , PT TROP INCREASING, DR AMAYA NOTIFIED. PT NSR VIA CRIME INVESTIGATOR SPECIAL AGENT. POX 93% 3L. WILL CONTINUE TO MONITOR.
--- NOTE | 2020-02-02 11:04 | NUR ---
DR AMAYA SPOKE WITH CARDIOLOGY DR MARCOS, STATED HE WOULD BE DOWN TO ER TO SEE PT.
--- NOTE | 2020-02-02 12:18 | NUR ---
RESTING WITH ESYES CLOSED, WAKENS WITH CARE, VOICES NO COMPLAINTS. POX 96% 3L
--- NOTE | 2020-02-02 14:10 | NUR ---
A 44, admitted to 5E, under the services of BRIGITTE Posada DO with a diagnosis of DYSPNEA, ELEVATED TROPONIN. Chief complaint is SHORTNESS OF BREATH Patient arrived via bed from ER. Monitor applied. Initial assessment completed. Vital signs taken and recorded. BRIGITTE POSADA DO notified of admission to the unit. Orders received. See assessment for past medical history, medications and allergies. Patient and/or family oriented to unit. [facility] visitation policy reviewed. Clothing/patient valuable form completed. KAREN COFFMAN
[2020-02-02] MEDS ORDERED: PREDNISONE10 MG PO (14:41)
[2020-02-02] MEDS ORDERED: GABAPENTIN600 MG PO (19:53)
[2020-02-02] MEDS ORDERED: PERFOROMIS20 MCG/2 M NEB (19:54)
[2020-02-02] MEDS ORDERED: VITAMIN C500 M4 PO (19:59)
[2020-02-02] MEDS ORDERED: VITAMIN D350 MC2 PO (19:59)
[2020-02-02] MEDS ORDERED: IRON325 M1 PO (20:00)
[2020-02-02] MEDS ORDERED: PULMICORT0.5 MG/21 NEB (20:04)
[2020-02-02] MEDS ORDERED: VENT7GM INH (20:05)
--- NOTE | 2020-02-02 20:33 | NUR ---
NOTIFIED OF CHANGES TO PT'S HOME MED REC. WILL REVIEW.
--- NOTE | 2020-02-02 22:18 | NUR ---
NEW ORDERS RECEIVED IN REGARDS TO PT'S HOME MED REC. PT STATES SHE NEEDS [facility] TONIGHT. ALSO STATES [facility] IS TID, NOT BID. MADE AWARE. NEW ORDERS TO FOLLOW.
[2020-02-03 03:30] VITALS: BP 104/52
[2020-02-03 06:18] LABS: BASO % 0.3 % (0.0-1.0); EOS # 0.1 10*3/uL (0.0-0.4); EOS % 0.6 % (1.0-4.0); HEMATOCRIT 46.7 % (37.0-47.0); LYMPH # 2.2 10*3/uL (1.3-4.4); LYMPH % 17.7 % (27.0-41.0); MEAN CELL VOLUME 97.9 fl (81.0-99.0); MEAN CORPUSCULAR HGB 30.4 pg (27.0-31.0); MEAN PLATELET VOLUME 10.7 fl (9.6-12.3); MONO # 0.5 10*3/uL (0.1-1.0); MONO % 3.6 % (3.0-9.0); NEUT # 9.6 10*3/uL (2.3-7.9); NEUT % 77.6 % (47.0-73.0); PLATELET COUNT AUTOMATED 264 10*3/uL (130-400); RED BLOOD COUNT 4.77 10*6/uL (4.10-5.10); RED CELL DISTRI WIDTH 12.6 % (0-14.5); WHITE BLOOD COUNT 12.4 10*3/uL (4.8-10.8)
[2020-02-03 06:34] LABS: ALBUMIN 3.3 gm/dl (3.1-4.5); ALKALINE PHOSPHATASE 55 U/L (45-117); BUN 15 mg/dl (7-24); CHLORIDE 106 mmol/L (98-107); CHOLESTEROL 146 mg/dL (<200); CREATININE 0.49 mg/dL (0.55-1.02); HDL CHOLESTEROL 60 mg/dl (40-60); LDL CHOLESTEROL 67 mg/dL (9-159); POTASSIUM 3.8 mmol/L (3.5-5.1); SGOT/AST 21 IU/L (3-35); SGPT/ALT 30 U/L (12-78); SODIUM 140 mmol/L (136-145); TOTAL PROTEIN 6.2 gm/dL (6.4-8.2); TRIGLYCERIDES 94 mg/dl (<150); VLDL CHOLESTEROL 19 mg/dL (6-40)
[2020-02-03 06:40] LABS: FREE T4 0.84 ng/dl (0.76-1.46); THYROID STIM HORMONE (HS) 0.744 uIU/ml (0.358-4.75)
--- NOTE | 2020-02-03 09:00 | NUR ---
Activities Volunteer in to talk to patient. Patient states lives at home with . There are no steps in the home. Physician: lio gonzalez [facility]acy: [facility] Home health services: none Patient's level of ADLs: INDEPENDENT Patient has working utilities: all working DME: nebulizer, home oxygen wears at hs at 2l from [facility] Follow-up physician's appointment after d/c: will be made by hospitalist nurse director upon discharge Does patient want to access PORTAL?: no Discharge plan discussed with patient, she states she lives at home with , she is independent in adls and ambulation, she states she will return home when discharged and denies any home needs, case management will follow. JOSEPH CASTELLANOS
[2020-02-03 10:10] LABS: VITAMIN D, 25-HYDROXY 99.2 ng/mL (30-100)
--- NOTE | 2020-02-03 11:10 | NUR ---
LAB CALLED WITH CRITICAL TROPONIN 0.132, JENSEN PIERRE WAS NOTIFIED OF TROPONIN AT THIS TIME.
--- NOTE | 2020-02-03 11:14 | NUR ---
CALLED TO NOTIFY DR. ROSE ABOUT PT'S TROPONIN, AND HIS ANSWERING SERVICE STATED HE WAS HERE AT [facility] AND I SHOULD BE SEEING HIM AND HUNG UP. AWAITING TO SEE DR. MARCOS ON THE FLOOR.
[2020-02-03 12:00] VITALS: BP 102/69
--- NOTE | 2020-02-03 14:31 | NUR ---
Discharge instructions reviewed with patient/family. Patient receptive and verbalizes understanding. Follow-up care arranged. Written instructions given to patient/family. IV WAS REMOVED. SMOKING CENSATION INFORMATION WAS PROVIDED. DIOR SCOTT
== END 2020-02-03 14:31 | disposition home or self-care (01) ==
LOC: ED 07:12 → 5E 12:47 → EDHOLD 12:47 → 5E 12:47
PROVIDERS: Emergency Medicine; Registered Nurse; ADMIT Internal Medicine; ATTEND Internal Medicine
DX: R77.8 Other specified abnormalities of plasma proteins (principal); R06.00 Dyspnea, unspecified; R94.31 Abnormal electrocardiogram [ECG] [EKG]; D72.829 Elevated white blood cell count, unspecified; R10.12 Left upper quadrant pain; J96.10 Chronic respiratory failure, unspecified whether with hypoxia or hypercapnia; I73.00 Raynaud's syndrome without gangrene; J84.82 Adult pulmonary Langerhans cell histiocytosis; F32.9 Major depressive disorder, single episode, unspecified; F41.1 Generalized anxiety disorder; M79.7 Fibromyalgia

== ENCOUNTER 2020-06-11 21:19 | Inpatient (IN) | payer BC ==
[~2020-06-11] VITALS: Ht 152.4 cm; Wt 42.7 kg
[~2020-06-11 21:19] MED LIST changes: +GABAPENTIN600 MG PO; +IRON325 M1 PO; +PERFOROMIS20 MCG/2 M NEB; +PREDNISONE10 MG PO; +PULMICORT0.5 MG/21 NEB; +VENT7GM INH; +VITAMIN C500 M4 PO; +VITAMIN D350 MC2 PO
[2020-06-11 21:32] VITALS: BP 156/75
[2020-06-11 21:51] LABS: BASO # 0.1 10*3/uL (0.0-0.1); BASO % 0.5 % (0.0-1.0); EOS % 5.8 % (1.0-4.0); HEMATOCRIT 45.4 % (37.0-47.0); LYMPH # 2.9 10*3/uL (1.3-4.4); LYMPH % 16.7 % (27.0-41.0); MEAN CORPUSCULAR HGB 30.6 pg (27.0-31.0); MEAN CORPUSCULAR HGB CONC 30.6 g/dl (33.0-37.0); MEAN PLATELET VOLUME 9.7 fl (9.6-12.3); MONO # 0.8 10*3/uL (0.1-1.0); MONO % 4.7 % (3.0-9.0); NEUT # 12.3 10*3/uL (2.3-7.9); NEUT % 71.8 % (47.0-73.0); PLATELET COUNT AUTOMATED 439 10*3/uL (130-400); RED BLOOD COUNT 4.54 10*6/uL (4.10-5.10); RED CELL DISTRI WIDTH 11.9 % (0-14.5); WHITE BLOOD COUNT 17.2 10*3/uL (4.8-10.8)
[2020-06-11 22:07] LABS: ALBUMIN 3.1 gm/dl (3.1-4.5); ALKALINE PHOSPHATASE 104 U/L (45-117); BUN 9 mg/dl (7-24); CHLORIDE 107 mmol/L (98-107); CREATININE 0.49 mg/dL (0.55-1.02); POTASSIUM 3.7 mmol/L (3.5-5.1); SGOT/AST 16 IU/L (3-35); SGPT/ALT 29 U/L (12-78); SODIUM 145 mmol/L (136-145)
[2020-06-11 23:25] VITALS: BP 154/68
[2020-06-12] VITALS: BP 147/88
[2020-06-12 00:11] VITALS: BP 147/88
[2020-06-12 06:07] LABS: ALBUMIN 2.7 gm/dl (3.1-4.5); BUN 10 mg/dl (7-24); CHLORIDE 105 mmol/L (98-107); CREATININE 0.41 mg/dL (0.55-1.02); POTASSIUM 3.7 mmol/L (3.5-5.1); SGOT/AST 14 IU/L (3-35); SGPT/ALT 23 U/L (12-78); SODIUM 141 mmol/L (136-145); TOTAL PROTEIN 6.3 gm/dL (6.4-8.2)
[2020-06-12 06:13] LABS: HEMATOCRIT 43.9 % (37.0-47.0); MEAN CELL VOLUME 100.5 fl (81.0-99.0); MEAN CORPUSCULAR HGB 29.5 pg (27.0-31.0); MEAN CORPUSCULAR HGB CONC 29.4 g/dl (33.0-37.0); MEAN PLATELET VOLUME 10.5 fl (9.6-12.3); PLATELET COUNT AUTOMATED 448 10*3/uL (130-400); RED BLOOD COUNT 4.37 10*6/uL (4.10-5.10); WHITE BLOOD COUNT 15.5 10*3/uL (4.8-10.8)
[2020-06-12 06:26] LABS: ALKALINE PHOSPHATASE 92 U/L (45-117); FREE T4 0.96 ng/dl (0.76-1.46)
[2020-06-12 06:56] LABS: PLATELET SUFFICIENCY HIGH (NORMAL); TOTAL CELLS COUNTED 100 #CELLS
[2020-06-12 08:00] VITALS: BP 118/61
[2020-06-12 12:00] VITALS: BP 112/62
[2020-06-12 16:00] VITALS: BP 106/53; BP 116/67
[2020-06-12 20:00] VITALS: BP 116/67
[2020-06-13] VITALS: BP 93/60
[2020-06-13 06:00] LABS: BUN 12 mg/dl (7-24); CHLORIDE 103 mmol/L (98-107); CREATININE 0.46 mg/dL (0.55-1.02); POTASSIUM 4.3 mmol/L (3.5-5.1); SODIUM 140 mmol/L (136-145)
[2020-06-13 06:31] LABS: MEAN CELL VOLUME 98.6 fl (81.0-99.0); MEAN CORPUSCULAR HGB 29.8 pg (27.0-31.0); MEAN CORPUSCULAR HGB CONC 30.2 g/dl (33.0-37.0); MEAN PLATELET VOLUME 10.3 fl (9.6-12.3); PLATELET COUNT AUTOMATED 419 10*3/uL (130-400); RED BLOOD COUNT 4.26 10*6/uL (4.10-5.10); RED CELL DISTRI WIDTH 11.8 % (0-14.5); WHITE BLOOD COUNT 15.5 10*3/uL (4.8-10.8)
[2020-06-13 07:04] LABS: ATYPICAL LYMPHS 1 % (0-0); BASOPHILS 1 % (0-1); TOTAL CELLS COUNTED 100 #CELLS
[2020-06-13 07:05] LABS: PLATELET SUFFICIENCY HIGH (NORMAL); POLYCHROMASIA SLIGHT
[2020-06-13 08:00] VITALS: BP 110/70
[2020-06-13 12:00] VITALS: BP 125/65
[2020-06-13 16:00] VITALS: BP 124/73
[2020-06-13 20:00] VITALS: BP 108/58
[2020-06-14] VITALS: BP 141/114
[2020-06-14 00:15] VITALS: BP 136/82
[2020-06-14 08:00] VITALS: BP 109/61
[2020-06-14 12:00] VITALS: BP 125/59
[2020-06-14 16:00] VITALS: BP 114/62
[2020-06-14 20:00] VITALS: BP 121/65
[2020-06-15] VITALS: BP 117/64
[2020-06-15 08:00] VITALS: BP 105/66
[2020-06-15 11:46] VITALS: BP 120/70
[2020-06-15 16:00] VITALS: BP 125/75
[2020-06-15 20:00] VITALS: BP 124/78
[2020-06-16] VITALS: BP 116/68
[2020-06-16 06:10] LABS: ALBUMIN 3.2 gm/dl (3.1-4.5); ALKALINE PHOSPHATASE 95 U/L (45-117); BUN 15 mg/dl (7-24); CHLORIDE 101 mmol/L (98-107); CREATININE 0.53 mg/dL (0.55-1.02); POTASSIUM 4.4 mmol/L (3.5-5.1); SGOT/AST 11 IU/L (3-35); SGPT/ALT 33 U/L (12-78); SODIUM 138 mmol/L (136-145)
[2020-06-16 06:28] LABS: HEMATOCRIT 45.9 % (37.0-47.0); MEAN CELL VOLUME 98.1 fl (81.0-99.0); MEAN CORPUSCULAR HGB 30.3 pg (27.0-31.0); MEAN CORPUSCULAR HGB CONC 30.9 g/dl (33.0-37.0); MEAN PLATELET VOLUME 10.1 fl (9.6-12.3); PLATELET COUNT AUTOMATED 511 10*3/uL (130-400); RED BLOOD COUNT 4.68 10*6/uL (4.10-5.10); RED CELL DISTRI WIDTH 12.2 % (0-14.5); WHITE BLOOD COUNT 23.9 10*3/uL (4.8-10.8)
[2020-06-16 06:58] LABS: BURR CELLS FEW; PLATELET SUFFICIENCY HIGH (NORMAL); TOTAL CELLS COUNTED 100 #CELLS
[2020-06-16 08:00] VITALS: BP 129/87
[2020-06-16] MEDS ORDERED: LEVOFLOXACIN500 MG PO (10:56)
[2020-06-16] MEDS ORDERED: IRON325 M1 PO (11:14)
[2020-06-16] MEDS ORDERED: PROTONIX40 MG PO (11:14)
[2020-06-16] MEDS ORDERED: VENT7GM INH (11:14)
[2020-06-16] MEDS ORDERED: BUSPAR15 MG PO (11:14)
[2020-06-16] MEDS ORDERED: PREDNISONE10 MG PO (11:14)
[2020-06-16] MEDS ORDERED: PROCARDIA10 MG PO (11:14)
[2020-06-16] MEDS ORDERED: VENTOLIN 02.5 MG/3 M INH (11:14)
[2020-06-16] MEDS ORDERED: VITAMIN D350 MC2 PO (11:14)
[2020-06-16 12:00] VITALS: BP 90/64
== END 2020-06-16 15:20 | disposition home health service (06) | DRG 871 ==
LOC: ED 21:19 → EDHOLD 22:58 → 4E 22:58
PROVIDERS: Internal Medicine; Registered Nurse; ADMIT Internal Medicine; ATTEND Internal Medicine
DX: A41.9 Sepsis, unspecified organism (principal); J15.6 Pneumonia due to other Gram-negative bacteria; J96.21 Acute and chronic respiratory failure with hypoxia; J44.1 Chronic obstructive pulmonary disease with (acute) exacerbation; J84.82 Adult pulmonary Langerhans cell histiocytosis; E44.0 Moderate protein-calorie malnutrition; J44.0 Chronic obstructive pulmonary disease with (acute) lower respiratory infection; Z68.1 Body mass index [BMI] 19.9 or less, adult; I73.00 Raynaud's syndrome without gangrene; F41.1 Generalized anxiety disorder; F32.9 Major depressive disorder, single episode, unspecified; K27.9 Peptic ulcer, site unspecified, unspecified as acute or chronic, without hemorrhage or perforation; R79.82 Elevated C-reactive protein (CRP); R03.0 Elevated blood-pressure reading, without diagnosis of hypertension; E11.65 Type 2 diabetes mellitus with hyperglycemia; M79.7 Fibromyalgia; D47.3 Essential (hemorrhagic) thrombocythemia; F17.210 Nicotine dependence, cigarettes, uncomplicated; Z99.81 Dependence on supplemental oxygen; Z91.030 Bee allergy status; Z90.49 Acquired absence of other specified parts of digestive tract; Z90.710 Acquired absence of both cervix and uterus; Z90.721 Acquired absence of ovaries, unilateral; Z82.49 Family history of ischemic heart disease and other diseases of the circulatory system; Z83.6 Family history of other diseases of the respiratory system; Z85.43 Personal history of malignant neoplasm of ovary; Z86.711 Personal history of pulmonary embolism; Z79.899 Other long term (current) drug therapy

== ENCOUNTER 2021-03-15 04:18 | Emergency (ER) | payer BC ==
[2021-03-15 04:18] VITALS: BP 130/78
[~2021-03-15 04:18] MED LIST changes: +LEVOFLOXACIN500 MG PO
[2021-03-15 04:35] LABS: BASO # 0.1 10*3/uL (0.0-0.1); BASO % 0.4 % (0.0-1.0); EOS # 0.6 10*3/uL (0.0-0.4); EOS % 3.8 % (1.0-4.0); HEMATOCRIT 46.4 % (37.0-47.0); LYMPH # 2.5 10*3/uL (1.3-4.4); LYMPH % 16.6 % (27.0-41.0); MEAN CELL VOLUME 98.9 fl (81.0-99.0); MEAN CORPUSCULAR HGB 30.1 pg (27.0-31.0); MEAN CORPUSCULAR HGB CONC 30.4 g/dl (33.0-37.0); MEAN PLATELET VOLUME 9.8 fl (9.6-12.3); MONO # 0.9 10*3/uL (0.1-1.0); MONO % 6.3 % (3.0-9.0); NEUT # 10.7 10*3/uL (2.3-7.9); NEUT % 72.6 % (47.0-73.0); PLATELET COUNT AUTOMATED 324 10*3/uL (130-400); RED BLOOD COUNT 4.69 10*6/uL (4.10-5.10); RED CELL DISTRI WIDTH 12.6 % (0-14.5); WHITE BLOOD COUNT 14.7 10*3/uL (4.8-10.8)
[2021-03-15 04:52] LABS: ALKALINE PHOSPHATASE 98 U/L (45-117); BUN 8 mg/dl (7-24); CHLORIDE 105 mmol/L (98-107); CREATININE 0.43 mg/dL (0.55-1.02); POTASSIUM 3.6 mmol/L (3.5-5.1); SGOT/AST 19 IU/L (3-35); SGPT/ALT 30 U/L (12-78); SODIUM 141 mmol/L (136-145); TOTAL PROTEIN 6.5 gm/dL (6.4-8.2)
[2021-03-15] MEDS ORDERED: PREDNISONE20 M1 PO (05:41)
[2021-03-15] MEDS ORDERED: ZITHROMAX250 MG PO (05:41)
== END 2021-03-15 08:15 | disposition home or self-care (01) ==
LOC: ED 04:18
PROVIDERS: Internal Medicine
DX: R06.00 Dyspnea, unspecified (principal); Z20.822 Contact with and (suspected) exposure to COVID-19; E88.09 Other disorders of plasma-protein metabolism, not elsewhere classified; D72.829 Elevated white blood cell count, unspecified

== ENCOUNTER → 2021-04-01 | Outpatient (CLI) | payer BC ==
[~2021-04-01] MED LIST changes: +PREDNISONE20 M1 PO; +ZITHROMAX250 MG PO
== END | disposition home or self-care (01) ==
LOC: COVID19 16:16
PROVIDERS: ATTEND Family Medicine
DX: U07.1 COVID-19 (principal)

== ENCOUNTER 2022-09-05 17:50 | Emergency (ER) | payer BC ==
[~2022-09-05] VITALS: Ht 152.4 cm; Wt 39.5 kg
[2022-09-05 18:04] VITALS: BP 157/93
== END 2022-09-05 21:05 | disposition home or self-care (01) ==
LOC: ED 17:50
DX: S06.0X0A Concussion without loss of consciousness, initial encounter (principal); R11.0 Nausea; F32.A Depression, unspecified; F41.9 Anxiety disorder, unspecified; I34.1 Nonrheumatic mitral (valve) prolapse; Z91.030 Bee allergy status; Z90.49 Acquired absence of other specified parts of digestive tract; Z90.89 Acquired absence of other organs; Z98.890 Other specified postprocedural states; Z90.710 Acquired absence of both cervix and uterus; F17.200 Nicotine dependence, unspecified, uncomplicated; W01.198A Fall on same level from slipping, tripping and stumbling with subsequent striking against other object, initial encounter; Y93.89 Activity, other specified; Y92.89 Other specified places as the place of occurrence of the external cause; Y99.8 Other external cause status

== ENCOUNTER 2023-07-09 06:53 | Inpatient (IN) | payer BC ==
[~2023-07-09] VITALS: Ht 152.4 cm; Wt 41.1 kg
[~2023-07-09 06:53] MED LIST changes: +ATARAX,VISTARIL10 MG PO; +ATIVAN1 MG PO; +BUSPIRONE HYDRO30 MG PO; +DULOXETINE HCL60 MG PO; +LORAZEPAM1 MG PO; +MUCUS RELIEF600 MG PO; +NYST SUSP PO; +ONDANSETRON4 MG SL; +PANTOPRAZOLE SO20 MG PO; +PREDNISONE5 MG PO; +PULMICORT FLEX90 MCG INH; +SERTRALINE HYDR50 MG PO; +VITAMIN C1000 M5 PO; -VITAMIN C500 M4 PO
[2023-07-09 06:58] VITALS: BP 146/60
[2023-07-09] MEDS ORDERED: Midazolam Hydrochloride 2 MG/2 ML VIAL IV ONE (07:15)
[2023-07-09] MEDS ORDERED: methylPREDNISolone sod succ 125 MG VIAL IV ONE (07:20)
[2023-07-09 07:31] LABS: BASO # 0.1 10*3/uL (0.0-0.1); BASO % 0.7 % (0.0-1.0); EOS # 0.4 10*3/uL (0.0-0.4); EOS % 3.5 % (1.0-4.0); HEMATOCRIT 38.6 % (37.0-47.0); LYMPH # 1.9 10*3/uL (1.3-4.4); LYMPH % 17.5 % (27.0-41.0); MEAN CELL VOLUME 102.1 fl (81.0-99.0); MEAN CORPUSCULAR HGB 29.1 pg (27.0-31.0); MEAN CORPUSCULAR HGB CONC 28.5 g/dl (33.0-37.0); MONO # 0.7 10*3/uL (0.1-1.0); MONO % 6.3 % (3.0-9.0); NEUT # 7.6 10*3/uL (2.3-7.9); NEUT % 71.7 % (47.0-73.0); PLATELET COUNT AUTOMATED 384 10*3/uL (130-400); RED BLOOD COUNT 3.78 10*6/uL (4.10-5.10); RED CELL DISTRI WIDTH 12.5 % (0-14.5); WHITE BLOOD COUNT 10.6 10*3/uL (4.8-10.8)
[2023-07-09 07:48] LABS: ALKALINE PHOSPHATASE 65 U/L (46-116); BUN 9 mg/dl (9-23); CHLORIDE 103 mmol/L (98-107); POTASSIUM 3.3 mmol/L (3.4-5.1); SGPT/ALT 25 U/L (5-49)
[2023-07-09 07:51] VITALS: BP 134/37
[2023-07-09 07:58] LABS: ABG BASE EXCESS 6.8 mmol/L (-2.0-2.0); ARTERIAL BLOOD GAS PH 7.335 (7.35-7.45)
[2023-07-09] MEDS ORDERED: AZITHROMYCIN 250 ML IV ONE (08:00)
[2023-07-09] MEDS ORDERED: POTASSIUM CHLORIDE 20 MEQ TAB PO ONE ×2 (08:00→13:15)
[2023-07-09] MEDS ORDERED: Ceftriaxone Sodium 1 GM/10 ML SYR IV ONE (08:00)
[2023-07-09 09:18] VITALS: BP 106/50
[2023-07-09] MEDS ORDERED: SODIUM CHLORIDE 0.9% 1,000 ML IV ONE (09:20)
[2023-07-09 10:02] LABS: ABG BASE EXCESS 6.7 mmol/L (-2.0-2.0); ARTERIAL BLOOD GAS PH 7.287 (7.35-7.45)
[2023-07-09] MEDS ORDERED: Magnesium Hydroxide 30 ML UDC PO PRN (11:05)
[2023-07-09] MEDS ORDERED: Ondansetron Hydrochloride 4 MG/2 ML VIAL IV PRN (11:05)
[2023-07-09] MEDS ORDERED: ACETAMINOPHEN 325 MG TAB PO PRN (11:05)
[2023-07-09] MEDS ORDERED: ACETAMINOPHEN 650 MG SUPP R PRN (11:05)
[2023-07-09] MEDS ORDERED: BISACODYL 10 MG SUPP R PRN (11:05)
[2023-07-09] MEDS ORDERED: BISACODYL 5 MG TAB PO PRN (11:05)
[2023-07-09] MEDS ORDERED: Acetaminophen/Hydrocodone 5 MG/325 MG TABLET PO PRN (11:05)
[2023-07-09] MEDS ORDERED: Albuterol Sulf/Ipratropium 3 ML VIAL NEB SCH (11:15)
[2023-07-09 11:45] VITALS: BP 108/56
[2023-07-09] MEDS ORDERED: VITAMIN D2 PO (12:25)
[2023-07-09] MEDS ORDERED: BUDESONIDE0.5 MG/2 M NEB (12:53)
[2023-07-09] MEDS ORDERED: FORMOTEROL20 MCG/2 M NEB (12:56)
[2023-07-09] MEDS ORDERED: TRETINOIN20 GM T (13:01)
[2023-07-09] MEDS ORDERED: NICODERM CQ1 EACH TD (13:04)
[2023-07-09] MEDS ORDERED: LORazepam 1 MG TAB PO PRN (13:05)
[2023-07-09] MEDS ORDERED: BUPRENORPHINE HCL/NALOXONE 8 MG-2 MG SL TABLET SL SCH (13:37)
[2023-07-09] MEDS ORDERED: GABAPENTIN 600 MG TAB PO SCH (14:00)
[2023-07-09] MEDS ORDERED: busPIRone Hydrochloride 15 MG TAB PO SCH (14:00)
[2023-07-09 16:00] VITALS: BP 111/61
[2023-07-09 17:15] LABS: ABG BASE EXCESS 5.6 mmol/L (-2.0-2.0); ARTERIAL BLOOD GAS PH 7.336 (7.35-7.45)
[2023-07-09 20:00] VITALS: BP 85/51
[2023-07-09] MEDS ORDERED: Pantoprazole Sodium 40 MG TAB PO SCH (22:00)
[2023-07-09] MEDS ORDERED: Sertraline Hydrochloride 50 MG TAB PO SCH (22:00)
[2023-07-10] VITALS: BP 98/45
[2023-07-10 04:00] VITALS: BP 114/65
[2023-07-10 05:41] LABS: ALKALINE PHOSPHATASE 57 U/L (46-116); BUN 11 mg/dl (9-23); CHLORIDE 103 mmol/L (98-107); POTASSIUM 4.2 mmol/L (3.4-5.1); SGPT/ALT 23 U/L (5-49); TOTAL PROTEIN 5.4 gm/dL (6.0-8.0)
[2023-07-10 05:58] LABS: BASO # 0.1 10*3/uL (0.0-0.1); BASO % 0.6 % (0.0-1.0); EOS # 0.2 10*3/uL (0.0-0.4); EOS % 1.8 % (1.0-4.0); HEMATOCRIT 36.6 % (37.0-47.0); LYMPH # 2.3 10*3/uL (1.3-4.4); LYMPH % 25.7 % (27.0-41.0); MEAN CELL VOLUME 99.7 fl (81.0-99.0); MEAN CORPUSCULAR HGB 29.4 pg (27.0-31.0); MEAN CORPUSCULAR HGB CONC 29.5 g/dl (33.0-37.0); MEAN PLATELET VOLUME 10.7 fl (9.6-12.3); MONO # 0.7 10*3/uL (0.1-1.0); MONO % 7.9 % (3.0-9.0); NEUT # 5.8 10*3/uL (2.3-7.9); NEUT % 63.8 % (47.0-73.0); PLATELET COUNT AUTOMATED 377 10*3/uL (130-400); RED BLOOD COUNT 3.67 10*6/uL (4.10-5.10); RED CELL DISTRI WIDTH 12.6 % (0-14.5)
[2023-07-10 06:17] LABS: ACT PARTIAL THROMBO TIME 26.3 SECONDS (20.0-32.1)
[2023-07-10 08:00] VITALS: BP 111/68
[2023-07-10] MEDS ORDERED: AZITHROMYCIN 250 ML IV SCH (09:00)
[2023-07-10] MEDS ORDERED: Levothyroxine Sodium 25 MCG TAB PO SCH (10:00)
[2023-07-10] MEDS ORDERED: Ceftriaxone Sodium 1 GM in SYRINGE INFUSION 10 ML IV SCH (10:00)
[2023-07-10] MEDS ORDERED: Enoxaparin Sodium 40 MG/0.4 ML SYR SC SCH (10:00)
[2023-07-10] MEDS ORDERED: methylPREDNISolone sod succ 40 MG VIAL IV SCH (10:00)
[2023-07-10 12:50] VITALS: BP 103/64
[2023-07-10 13:28] LABS: ABG BASE EXCESS 5.4 mmol/L (-2.0-2.0); ARTERIAL BLOOD GAS PH 7.342 (7.35-7.45)
[2023-07-10 16:00] VITALS: BP 112/73
[2023-07-10 20:00] VITALS: BP 105/70; BP 130/68
[2023-07-10] MEDS ORDERED: hydrOXYzine pamoate 25 MG CAP PO PRN (22:45)
[2023-07-11] VITALS: BP 110/70
[2023-07-11 04:00] VITALS: BP 115/77
[2023-07-11 04:59] LABS: BUN 10 mg/dl (9-23); CHLORIDE 98 mmol/L (98-107); POTASSIUM 4.7 mmol/L (3.4-5.1)
[2023-07-11 06:21] LABS: HEMATOCRIT 40.3 % (37.0-47.0); MEAN CELL VOLUME 100.5 fl (81.0-99.0); MEAN CORPUSCULAR HGB 28.7 pg (27.0-31.0); MEAN CORPUSCULAR HGB CONC 28.5 g/dl (33.0-37.0); MEAN PLATELET VOLUME 10.8 fl (9.6-12.3); PLATELET COUNT AUTOMATED 396 10*3/uL (130-400); RED BLOOD COUNT 4.01 10*6/uL (4.10-5.10); RED CELL DISTRI WIDTH 12.7 % (0-14.5); WHITE BLOOD COUNT 12.4 10*3/uL (4.8-10.8)
[2023-07-11 06:23] LABS: MANUAL DIFF REFLEX YES
[2023-07-11 07:08] LABS: TOTAL CELLS COUNTED 100 #CELLS
[2023-07-11 07:09] LABS: PLATELET SUFFICIENCY NORMAL (NORMAL); POLYCHROMASIA SLIGHT; STOMATOCYTE FEW; TOXIC GRANULATION SLIGHT
[2023-07-11 08:00] VITALS: BP 102/58
[2023-07-11 08:13] LABS: ARTERIAL BLOOD GAS PH 7.385 (7.35-7.45)
[2023-07-11 12:00] VITALS: BP 112/64
[2023-07-11 16:00] VITALS: BP 117/78
[2023-07-11 20:00] VITALS: BP 106/66
[2023-07-12] VITALS: BP 130/73
[2023-07-12 05:23] LABS: BUN 13 mg/dl (9-23); CHLORIDE 100 mmol/L (98-107); POTASSIUM 4.1 mmol/L (3.4-5.1)
[2023-07-12 06:20] LABS: HEMATOCRIT 37.6 % (37.0-47.0); MEAN CELL VOLUME 98.4 fl (81.0-99.0); MEAN CORPUSCULAR HGB 28.5 pg (27.0-31.0); MEAN PLATELET VOLUME 10.8 fl (9.6-12.3); PLATELET COUNT AUTOMATED 395 10*3/uL (130-400); RED BLOOD COUNT 3.82 10*6/uL (4.10-5.10)
[2023-07-12 06:21] LABS: MANUAL DIFF REFLEX YES
[2023-07-12 06:56] LABS: TOTAL CELLS COUNTED 100 #CELLS
[2023-07-12 06:57] LABS: BURR CELLS FEW; OVALOCYTES FEW; PLATELET SUFFICIENCY NORMAL (NORMAL); POLYCHROMASIA SLIGHT; ROULEAUX SLIGHT; TOXIC GRANULATION SLIGHT
[2023-07-12 08:00] VITALS: BP 109/65
[2023-07-12] MEDS ORDERED: methylPREDNISolone 4 MG TAB PO SCH (10:00)
[2023-07-12 16:00] VITALS: BP 127/78
[2023-07-12 20:00] VITALS: BP 144/76
[2023-07-13 07:00] LABS: BASO # 0.1 10*3/uL (0.0-0.1); BASO % 0.6 % (0.0-1.0); EOS # 0.3 10*3/uL (0.0-0.4); EOS % 2.7 % (1.0-4.0); HEMATOCRIT 39.4 % (37.0-47.0); LYMPH # 2.9 10*3/uL (1.3-4.4); MEAN CELL VOLUME 101.3 fl (81.0-99.0); MEAN CORPUSCULAR HGB CONC 28.7 g/dl (33.0-37.0); MEAN PLATELET VOLUME 10.3 fl (9.6-12.3); MONO % 8.2 % (3.0-9.0); NEUT % 64.9 % (47.0-73.0); PLATELET COUNT AUTOMATED 396 10*3/uL (130-400); RED BLOOD COUNT 3.89 10*6/uL (4.10-5.10); WHITE BLOOD COUNT 12.4 10*3/uL (4.8-10.8)
[2023-07-13 07:18] LABS: ALKALINE PHOSPHATASE 63 U/L (46-116); BUN 13 mg/dl (9-23); CHLORIDE 100 mmol/L (98-107); POTASSIUM 3.8 mmol/L (3.4-5.1); SGPT/ALT 23 U/L (5-49); TOTAL PROTEIN 5.8 gm/dL (6.0-8.0)
[2023-07-13 08:00] VITALS: BP 129/71
[2023-07-13] MEDS ORDERED: ZITHROMAX250 MG PO (10:56)
[2023-07-13] MEDS ORDERED: ZOLOFT50 MG PO (11:15)
[2023-07-13] MEDS ORDERED: VISTARIL25 MG PO (11:15)
== END 2023-07-13 13:45 | disposition home or self-care (01) | DRG 189 ==
LOC: ED 06:53 → ICCU 10:15 → EDHOLD 10:15 → ICCU 11:02 → 4E 07-12 17:45
PROVIDERS: Internal Medicine; Internal Medicine Critical Care Medicine; Student in an Organized Health Care Education/Training Program; ADMIT Internal Medicine; ATTEND Internal Medicine
PROC: 5A09357 Assistance with Respiratory Ventilation, Less than 24 Consecutive Hours, Continuous Positive Airway Pressure (ICD-10-PCS; principal; 2023-07-09)
PROC: 5A09357 Assistance with Respiratory Ventilation, Less than 24 Consecutive Hours, Continuous Positive Airway Pressure (ICD-10-PCS; 2023-07-10)
PROC: 5A09357 Assistance with Respiratory Ventilation, Less than 24 Consecutive Hours, Continuous Positive Airway Pressure (ICD-10-PCS; 2023-07-11)
PROC: 5A09357 Assistance with Respiratory Ventilation, Less than 24 Consecutive Hours, Continuous Positive Airway Pressure (ICD-10-PCS; 2023-07-12)
DX: J96.22 Acute and chronic respiratory failure with hypercapnia (principal); J44.1 Chronic obstructive pulmonary disease with (acute) exacerbation; J84.82 Adult pulmonary Langerhans cell histiocytosis; E87.3 Alkalosis; N17.9 Acute kidney failure, unspecified; J96.21 Acute and chronic respiratory failure with hypoxia; E87.6 Hypokalemia; D53.9 Nutritional anemia, unspecified; F41.1 Generalized anxiety disorder; R73.9 Hyperglycemia, unspecified; E03.9 Hypothyroidism, unspecified; F32.9 Major depressive disorder, single episode, unspecified; Z91.030 Bee allergy status; Z98.891 History of uterine scar from previous surgery; Z90.49 Acquired absence of other specified parts of digestive tract; Z83.6 Family history of other diseases of the respiratory system; Z82.49 Family history of ischemic heart disease and other diseases of the circulatory system; Z85.43 Personal history of malignant neoplasm of ovary; Z87.11 Personal history of peptic ulcer disease; Z90.711 Acquired absence of uterus with remaining cervical stump; Z71.6 Tobacco abuse counseling

== ENCOUNTER 2023-07-14 21:22 | Emergency (ER) | payer BC ==
[~2023-07-14] VITALS: Ht 152.4 cm; Wt 40.8 kg
[~2023-07-14 21:22] MED LIST changes: +BUDESONIDE0.5 MG/2 M NEB; +FORMOTEROL20 MCG/2 M NEB; +NICODERM CQ1 EACH TD; +TRETINOIN20 GM T; +VISTARIL25 MG PO; +VITAMIN D2 PO
[2023-07-14] MEDS ORDERED: Albuterol Sulf/Ipratropium 3 ML VIAL NEB ONE (21:50)
[2023-07-14] MEDS ORDERED: methylPREDNISolone sod succ 125 MG VIAL IV ONE (21:50)
[2023-07-14 22:43] LABS: BASO % 0.3 % (0.0-1.0); EOS # 0.1 10*3/uL (0.0-0.4); EOS % 1.1 % (1.0-4.0); HEMATOCRIT 41.2 % (37.0-47.0); LYMPH # 2.6 10*3/uL (1.3-4.4); LYMPH % 19.8 % (27.0-41.0); MEAN CELL VOLUME 98.6 fl (81.0-99.0); MEAN CORPUSCULAR HGB 28.9 pg (27.0-31.0); MEAN CORPUSCULAR HGB CONC 29.4 g/dl (33.0-37.0); MEAN PLATELET VOLUME 10.2 fl (9.6-12.3); MONO # 0.9 10*3/uL (0.1-1.0); MONO % 6.5 % (3.0-9.0); NEUT # 9.6 10*3/uL (2.3-7.9); NEUT % 71.8 % (47.0-73.0); PLATELET COUNT AUTOMATED 448 10*3/uL (130-400); RED BLOOD COUNT 4.18 10*6/uL (4.10-5.10); RED CELL DISTRI WIDTH 12.9 % (0-14.5); WHITE BLOOD COUNT 13.3 10*3/uL (4.8-10.8)
[2023-07-14 22:48] LABS: ALKALINE PHOSPHATASE 68 U/L (46-116); BUN 12 mg/dl (9-23); CHLORIDE 100 mmol/L (98-107); POTASSIUM 3.6 mmol/L (3.4-5.1); SGPT/ALT 33 U/L (5-49)
[2023-07-15 00:53] LABS: ABG BASE EXCESS 6.5 mmol/L (-2.0-2.0); ARTERIAL BLOOD GAS PH 7.365 (7.35-7.45)
[2023-07-15] MEDS ORDERED: LORazepam 1 MG TAB PO ONE (03:20)
[2023-07-15 05:08] VITALS: BP 112/78
== END 2023-07-15 06:16 | disposition home or self-care (01) ==
LOC: ED 21:22
PROVIDERS: Emergency Medicine
DX: J44.1 Chronic obstructive pulmonary disease with (acute) exacerbation (principal); C96.6 Unifocal Langerhans-cell histiocytosis; R73.9 Hyperglycemia, unspecified; E87.6 Hypokalemia; D64.9 Anemia, unspecified; M79.7 Fibromyalgia; F32.A Depression, unspecified; F41.9 Anxiety disorder, unspecified; Z91.030 Bee allergy status; Z90.49 Acquired absence of other specified parts of digestive tract; Z98.890 Other specified postprocedural states; Z90.89 Acquired absence of other organs; Z90.710 Acquired absence of both cervix and uterus; Z72.0 Tobacco use

== ENCOUNTER 2023-08-05 21:01 | Emergency (ER) | payer BC ==
[~2023-08-05] VITALS: Ht 152.4 cm; Wt 40.8 kg
[2023-08-05] MEDS ORDERED: Albuterol Sulf/Ipratropium 3 ML VIAL NEB ONE (21:35)
[2023-08-05] MEDS ORDERED: methylPREDNISolone sod succ 125 MG VIAL IV ONE (21:35)
[2023-08-05 21:53] LABS: BASO # 0.1 10*3/uL (0.0-0.1); BASO % 0.7 % (0.0-1.0); EOS # 0.6 10*3/uL (0.0-0.4); EOS % 4.6 % (1.0-4.0); HEMATOCRIT 40.7 % (37.0-47.0); LYMPH # 1.5 10*3/uL (1.3-4.4); LYMPH % 12.2 % (27.0-41.0); MEAN CELL VOLUME 100.5 fl (81.0-99.0); MEAN CORPUSCULAR HGB 28.4 pg (27.0-31.0); MEAN CORPUSCULAR HGB CONC 28.3 g/dl (33.0-37.0); MEAN PLATELET VOLUME 10.2 fl (9.6-12.3); MONO # 0.8 10*3/uL (0.1-1.0); MONO % 6.9 % (3.0-9.0); NEUT # 8.9 10*3/uL (2.3-7.9); NEUT % 73.9 % (47.0-73.0); PLATELET COUNT AUTOMATED 366 10*3/uL (130-400); RED BLOOD COUNT 4.05 10*6/uL (4.10-5.10)
[2023-08-05] MEDS ORDERED: Ondansetron Hydrochloride 4 MG/2 ML VIAL IV ONE (22:00)
[2023-08-05 22:09] LABS: ALKALINE PHOSPHATASE 99 U/L (46-116); BUN 13 mg/dl (9-23); CHLORIDE 101 mmol/L (98-107); POTASSIUM 3.7 mmol/L (3.4-5.1); SGPT/ALT 33 U/L (5-49); TOTAL PROTEIN 5.8 gm/dL (6.0-8.0)
[2023-08-05] MEDS ORDERED: ACETAMINOPHEN 325 MG TAB PO ONE (22:10)
[2023-08-05] MEDS ORDERED: BUPRENORPHINE HCL/NALOXONE 8 MG-2 MG SL TABLET SL ONE (23:10)
[2023-08-05 23:33] VITALS: BP 117/61
[2023-08-05] MEDS ORDERED: AVPAK AZITHROM250 M1 PO (23:44)
[2023-08-05] MEDS ORDERED: PREDNISONE20 M1 PO (23:44)
[2023-08-05] MEDS ORDERED: AZITHROMYCIN 250 MG TAB PO ONE (23:45)
== END 2023-08-06 00:38 | disposition home or self-care (01) ==
LOC: ED 21:01
PROVIDERS: Nurse Practitioner Family
DX: F11.23 Opioid dependence with withdrawal (principal); J44.1 Chronic obstructive pulmonary disease with (acute) exacerbation; M54.9 Dorsalgia, unspecified; Z91.030 Bee allergy status; E87.6 Hypokalemia; D64.9 Anemia, unspecified; M79.7 Fibromyalgia; F32.A Depression, unspecified; F41.9 Anxiety disorder, unspecified; F17.210 Nicotine dependence, cigarettes, uncomplicated; Z90.49 Acquired absence of other specified parts of digestive tract; Z98.890 Other specified postprocedural states; Z90.89 Acquired absence of other organs; Z90.710 Acquired absence of both cervix and uterus

== ENCOUNTER 2023-09-08 22:18 | Inpatient (IN) | payer BC ==
[~2023-09-08] VITALS: Ht 152.4 cm; Wt 39.1 kg
[~2023-09-08 22:18] MED LIST changes: +AVPAK AZITHROM250 M1 PO
[2023-09-08 22:19] VITALS: BP 118/65
[2023-09-08] MEDS ORDERED: methylPREDNISolone sod succ 125 MG VIAL IV ONE (22:40)
[2023-09-08] MEDS ORDERED: Albuterol Sulf/Ipratropium 3 ML VIAL NEB ONE (22:40)
[2023-09-08 22:52] LABS: BASO # 0.1 10*3/uL (0.0-0.1); BASO % 1.3 % (0.0-1.0); EOS # 0.7 10*3/uL (0.0-0.4); HEMATOCRIT 41.1 % (37.0-47.0); LYMPH # 1.1 10*3/uL (1.3-4.4); MEAN CELL VOLUME 96.9 fl (81.0-99.0); MEAN CORPUSCULAR HGB 28.1 pg (27.0-31.0); MEAN PLATELET VOLUME 10.2 fl (9.6-12.3); MONO # 0.3 10*3/uL (0.1-1.0); MONO % 4.6 % (3.0-9.0); NEUT # 4.1 10*3/uL (2.3-7.9); NEUT % 64.9 % (47.0-73.0); PLATELET COUNT AUTOMATED 345 10*3/uL (130-400); RED BLOOD COUNT 4.24 10*6/uL (4.10-5.10); RED CELL DISTRI WIDTH 13.2 % (0-14.5); WHITE BLOOD COUNT 6.3 10*3/uL (4.8-10.8)
[2023-09-08 23:03] LABS: ACT PARTIAL THROMBO TIME 28.4 SECONDS (20.0-32.1)
[2023-09-08 23:14] LABS: ALKALINE PHOSPHATASE 100 U/L (46-116); BUN 12 mg/dl (9-23); CHLORIDE 98 mmol/L (98-107); LIPASE 34 U/L (12-53); POTASSIUM 3.6 mmol/L (3.4-5.1); SGPT/ALT 28 U/L (5-49); TOTAL PROTEIN 5.9 gm/dL (6.0-8.0)
[2023-09-08 23:15] LABS: ABG BASE EXCESS 10.4 mmol/L (-2.0-2.0); ARTERIAL BLOOD GAS PH 7.32 (7.35-7.45)
[2023-09-08] MEDS ORDERED: Ceftriaxone Sodium 1 GM/10 ML SYR IV ONE (23:55)
[2023-09-08] MEDS ORDERED: AZITHROMYCIN 250 ML IV ONE (23:55)
[2023-09-09] MEDS ORDERED: Midazolam Hydrochloride 2 MG/2 ML VIAL IV ONE (01:40)
[2023-09-09] MEDS ORDERED: Magnesium Hydroxide 30 ML UDC PO PRN (01:50)
[2023-09-09] MEDS ORDERED: ACETAMINOPHEN 325 MG TAB PO PRN (01:50)
[2023-09-09] MEDS ORDERED: BISACODYL 10 MG SUPP R PRN (01:50)
[2023-09-09] MEDS ORDERED: Ondansetron Hydrochloride 4 MG/2 ML VIAL IV PRN (01:50)
[2023-09-09] MEDS ORDERED: ACETAMINOPHEN 650 MG SUPP R PRN (01:50)
[2023-09-09] MEDS ORDERED: BISACODYL 5 MG TAB PO PRN (01:50)
[2023-09-09 01:54] LABS: BILIRUBIN Negative (Negative); BLOOD Negative (Negative); CLARITY Cloudy (Clear); COLOR Yellow (Yellow); GLUCOSE Negative (Negative); KETONE Trace (Negative); LEUKO ESTERASE 2+ (Negative); NITRITE Negative (Negative)
[2023-09-09 02:00] LABS: BACTERIA 2+; RBC 0-2 rbc/hpf (0-2); WBC 31-40 wbc/hpf (0-5)
[2023-09-09] MEDS ORDERED: hydrOXYzine pamoate 25 MG CAP PO PRN (02:00)
[2023-09-09] MEDS ORDERED: SODIUM CHLORIDE 0.9% 1,200 ML IV SCH (02:00)
[2023-09-09 03:32] VITALS: BP 114/67
[2023-09-09] MEDS ORDERED: Albuterol Sulf/Ipratropium 3 ML VIAL NEB SCH ×2 (04:00→20:00)
[2023-09-09 05:15] VITALS: BP 109/68
[2023-09-09 06:07] LABS: BASO % 0.6 % (0.0-1.0); HEMATOCRIT 42.1 % (37.0-47.0); LYMPH # 0.4 10*3/uL (1.3-4.4); LYMPH % 12.2 % (27.0-41.0); MEAN CORPUSCULAR HGB 27.6 pg (27.0-31.0); MEAN CORPUSCULAR HGB CONC 28.5 g/dl (33.0-37.0); MEAN PLATELET VOLUME 10.9 fl (9.6-12.3); MONO % 1.2 % (3.0-9.0); NEUT # 2.9 10*3/uL (2.3-7.9); NEUT % 85.7 % (47.0-73.0); PLATELET COUNT AUTOMATED 353 10*3/uL (130-400); RED BLOOD COUNT 4.34 10*6/uL (4.10-5.10); RED CELL DISTRI WIDTH 13.2 % (0-14.5); WHITE BLOOD COUNT 3.4 10*3/uL (4.8-10.8)
[2023-09-09 06:30] LABS: ALKALINE PHOSPHATASE 97 U/L (46-116); BUN 12 mg/dl (9-23); CHLORIDE 98 mmol/L (98-107); FREE T4 0.87 ng/dl (0.89-1.76); POTASSIUM 4.1 mmol/L (3.4-5.1); SGPT/ALT 26 U/L (5-49); TOTAL PROTEIN 5.8 gm/dL (6.0-8.0)
[2023-09-09 07:43] LABS: ABG BASE EXCESS 7.3 mmol/L (-2.0-2.0); ARTERIAL BLOOD GAS PH 7.334 (7.35-7.45)
[2023-09-09] MEDS ORDERED: LORazepam 1 MG TAB PO PRN (09:10)
[2023-09-09] MEDS ORDERED: Levothyroxine Sodium 25 MCG TAB PO SCH (10:00)
[2023-09-09] MEDS ORDERED: Pantoprazole Sodium 40 MG TAB PO SCH (10:00)
[2023-09-09] MEDS ORDERED: Nicotine 7 MG PATCH T SCH (10:00)
[2023-09-09] MEDS ORDERED: Enoxaparin Sodium 40 MG/0.4 ML SYR SC SCH (10:00)
[2023-09-09] MEDS ORDERED: hydrOXYzine pamoate 25 MG CAP PO SCH (12:00)
[2023-09-09] MEDS ORDERED: GABAPENTIN 600 MG TAB PO SCH (14:00)
[2023-09-09] MEDS ORDERED: busPIRone Hydrochloride 15 MG TAB PO SCH (14:00)
[2023-09-09 19:31] VITALS: BP 103/63
[2023-09-09] MEDS ORDERED: Albuterol Sulf/Ipratropium 3 ML VIAL NEB ONE (19:35)
[2023-09-09] MEDS ORDERED: MAGNESIUM SULFATE 50 ML IV ONE (19:40)
[2023-09-09] MEDS ORDERED: methylPREDNISolone sod succ 40 MG VIAL IV SCH (22:00)
[2023-09-09] MEDS ORDERED: AZITHROMYCIN 250 ML IV SCH (22:00)
[2023-09-09] MEDS ORDERED: Ceftriaxone Sodium 1 GM in SYRINGE INFUSION 10 ML IV SCH (22:00)
[2023-09-09] MEDS ORDERED: Sertraline Hydrochloride 50 MG TAB PO SCH (22:00)
[2023-09-09 22:30] VITALS: BP 104/51
[2023-09-10] VITALS: BP 106/48
[2023-09-10] MEDS ORDERED: methylPREDNISolone sod succ 40 MG VIAL IV SCH (06:00)
[2023-09-10 06:51] LABS: BASO # 0.1 10*3/uL (0.0-0.1); BASO % 0.8 % (0.0-1.0); EOS # 0.4 10*3/uL (0.0-0.4); EOS % 5.9 % (1.0-4.0); HEMATOCRIT 39.3 % (37.0-47.0); LYMPH # 2.7 10*3/uL (1.3-4.4); LYMPH % 37.5 % (27.0-41.0); MEAN CELL VOLUME 97.3 fl (81.0-99.0); MEAN CORPUSCULAR HGB 27.7 pg (27.0-31.0); MEAN CORPUSCULAR HGB CONC 28.5 g/dl (33.0-37.0); MEAN PLATELET VOLUME 10.6 fl (9.6-12.3); MONO # 0.5 10*3/uL (0.1-1.0); MONO % 6.8 % (3.0-9.0); NEUT # 3.4 10*3/uL (2.3-7.9); NEUT % 48.7 % (47.0-73.0); PLATELET COUNT AUTOMATED 298 10*3/uL (130-400); RED BLOOD COUNT 4.04 10*6/uL (4.10-5.10); RED CELL DISTRI WIDTH 13.2 % (0-14.5); WHITE BLOOD COUNT 7.1 10*3/uL (4.8-10.8)
[2023-09-10 07:13] LABS: BUN 10 mg/dl (9-23); CHLORIDE 102 mmol/L (98-107); POTASSIUM 3.7 mmol/L (3.4-5.1)
[2023-09-10 08:00] VITALS: BP 98/55
[2023-09-10 09:48] LABS: ABG BASE EXCESS 8.4 mmol/L (-2.0-2.0); ARTERIAL BLOOD GAS PH 7.367 (7.35-7.45)
[2023-09-10] MEDS ORDERED: BUPRENORPHINE HCL/NALOXONE 8 MG-2 MG SL TABLET SL SCH (10:00)
[2023-09-10 12:00] VITALS: BP 98/56
[2023-09-10 16:00] VITALS: BP 97/59
[2023-09-10 20:08] VITALS: BP 112/62
[2023-09-11 00:08] VITALS: BP 110/57
[2023-09-11 06:08] LABS: BASO % 0.2 % (0.0-1.0); HEMATOCRIT 37.3 % (37.0-47.0); LYMPH # 0.8 10*3/uL (1.3-4.4); LYMPH % 7.7 % (27.0-41.0); MEAN CELL VOLUME 97.4 fl (81.0-99.0); MEAN CORPUSCULAR HGB 27.7 pg (27.0-31.0); MEAN CORPUSCULAR HGB CONC 28.4 g/dl (33.0-37.0); MONO # 0.2 10*3/uL (0.1-1.0); NEUT # 9.1 10*3/uL (2.3-7.9); NEUT % 89.7 % (47.0-73.0); PLATELET COUNT AUTOMATED 343 10*3/uL (130-400); RED BLOOD COUNT 3.83 10*6/uL (4.10-5.10); RED CELL DISTRI WIDTH 13.3 % (0-14.5); WHITE BLOOD COUNT 10.1 10*3/uL (4.8-10.8)
[2023-09-11 06:23] LABS: BUN 13 mg/dl (9-23); CHLORIDE 102 mmol/L (98-107); POTASSIUM 4.5 mmol/L (3.4-5.1)
[2023-09-11 08:07] VITALS: BP 115/75
[2023-09-11] MEDS ORDERED: Ondansetron Hydrochloride 4 MG/2 ML VIAL IV ONE (08:25)
[2023-09-11 12:00] VITALS: BP 137/68
[2023-09-11 16:00] VITALS: BP 110/58
[2023-09-11 20:00] VITALS: BP 117/67
[2023-09-12] VITALS: BP 115/62
[2023-09-12 06:46] LABS: BASO % 0.1 % (0.0-1.0); HEMATOCRIT 39.9 % (37.0-47.0); LYMPH % 7.1 % (27.0-41.0); MEAN CELL VOLUME 99.3 fl (81.0-99.0); MEAN CORPUSCULAR HGB 28.1 pg (27.0-31.0); MEAN CORPUSCULAR HGB CONC 28.3 g/dl (33.0-37.0); MEAN PLATELET VOLUME 10.8 fl (9.6-12.3); MONO # 0.6 10*3/uL (0.1-1.0); MONO % 4.1 % (3.0-9.0); NEUT # 12.4 10*3/uL (2.3-7.9); NEUT % 88.1 % (47.0-73.0); PLATELET COUNT AUTOMATED 354 10*3/uL (130-400); RED BLOOD COUNT 4.02 10*6/uL (4.10-5.10); RED CELL DISTRI WIDTH 13.3 % (0-14.5); WHITE BLOOD COUNT 14.1 10*3/uL (4.8-10.8)
[2023-09-12 08:00] VITALS: BP 113/63
[2023-09-12 12:00] VITALS: BP 132/79
[2023-09-12 16:00] VITALS: BP 127/72
[2023-09-12 20:00] VITALS: BP 102/55
[2023-09-13] VITALS: BP 102/58
[2023-09-13 06:05] LABS: MEAN CELL VOLUME 97.8 fl (81.0-99.0); MEAN CORPUSCULAR HGB 27.6 pg (27.0-31.0); MEAN CORPUSCULAR HGB CONC 28.3 g/dl (33.0-37.0); MEAN PLATELET VOLUME 10.8 fl (9.6-12.3); PLATELET COUNT AUTOMATED 353 10*3/uL (130-400); RED BLOOD COUNT 4.09 10*6/uL (4.10-5.10); RED CELL DISTRI WIDTH 13.5 % (0-14.5)
[2023-09-13 06:09] LABS: MANUAL DIFF REFLEX YES
[2023-09-13 07:03] LABS: PLATELET SUFFICIENCY NORMAL (NORMAL); TOTAL CELLS COUNTED 100 #CELLS
[2023-09-13 07:20] VITALS: BP 132/76
[2023-09-13 08:00] VITALS: BP 119/79
[2023-09-13 12:00] VITALS: BP 128/68
[2023-09-13 16:00] VITALS: BP 121/66
[2023-09-13 20:00] VITALS: BP 138/75
[2023-09-14] VITALS: BP 124/77
[2023-09-14 06:09] LABS: HEMATOCRIT 39.8 % (37.0-47.0); MEAN CELL VOLUME 97.8 fl (81.0-99.0); MEAN CORPUSCULAR HGB CONC 28.6 g/dl (33.0-37.0); MEAN PLATELET VOLUME 10.8 fl (9.6-12.3); PLATELET COUNT AUTOMATED 376 10*3/uL (130-400); RED BLOOD COUNT 4.07 10*6/uL (4.10-5.10); RED CELL DISTRI WIDTH 13.7 % (0-14.5); WHITE BLOOD COUNT 13.9 10*3/uL (4.8-10.8)
[2023-09-14 06:22] LABS: MANUAL DIFF REFLEX YES
[2023-09-14 07:42] LABS: PLATELET SUFFICIENCY NORMAL (NORMAL); TOTAL CELLS COUNTED 100 #CELLS
[2023-09-14 08:00] VITALS: BP 120/73
[2023-09-14 12:00] VITALS: BP 158/72
[2023-09-14 16:00] VITALS: BP 132/88
[2023-09-14 20:00] VITALS: BP 139/77
[2023-09-15] VITALS: BP 126/79
[2023-09-15 06:11] LABS: HEMATOCRIT 40.6 % (37.0-47.0); MEAN CORPUSCULAR HGB 27.9 pg (27.0-31.0); MEAN CORPUSCULAR HGB CONC 29.1 g/dl (33.0-37.0); MEAN PLATELET VOLUME 11.9 fl (9.6-12.3); PLATELET COUNT AUTOMATED 324 10*3/uL (130-400); RED BLOOD COUNT 4.23 10*6/uL (4.10-5.10); RED CELL DISTRI WIDTH 13.8 % (0-14.5); WHITE BLOOD COUNT 15.9 10*3/uL (4.8-10.8)
[2023-09-15 06:19] LABS: MANUAL DIFF REFLEX YES
[2023-09-15 07:15] LABS: PLATELET SUFFICIENCY NORMAL (NORMAL); TOTAL CELLS COUNTED 100 #CELLS
[2023-09-15 07:16] LABS: ROULEAUX SLIGHT; TOXIC GRANULATION SLIGHT
[2023-09-15 08:00] VITALS: BP 129/85
[2023-09-15 12:00] VITALS: BP 144/85; BP 84/40
[2023-09-15 12:27] VITALS: BP 130/78
[2023-09-15 16:00] VITALS: BP 146/72
[2023-09-15 20:00] VITALS: BP 137/80
[2023-09-16] VITALS: BP 143/85
[2023-09-16 06:44] LABS: BASO % 0.2 % (0.0-1.0); HEMATOCRIT 39.6 % (37.0-47.0); LYMPH # 1.1 10*3/uL (1.3-4.4); LYMPH % 6.2 % (27.0-41.0); MEAN CELL VOLUME 97.3 fl (81.0-99.0); MEAN CORPUSCULAR HGB 27.8 pg (27.0-31.0); MEAN CORPUSCULAR HGB CONC 28.5 g/dl (33.0-37.0); MEAN PLATELET VOLUME 10.4 fl (9.6-12.3); MONO # 0.7 10*3/uL (0.1-1.0); MONO % 4.3 % (3.0-9.0); NEUT # 14.8 10*3/uL (2.3-7.9); PLATELET COUNT AUTOMATED 404 10*3/uL (130-400); RED BLOOD COUNT 4.07 10*6/uL (4.10-5.10); RED CELL DISTRI WIDTH 13.9 % (0-14.5); WHITE BLOOD COUNT 16.8 10*3/uL (4.8-10.8)
[2023-09-16 07:20] LABS: BUN 15 mg/dl (9-23); CHLORIDE 96 mmol/L (98-107); POTASSIUM 4.5 mmol/L (3.4-5.1)
[2023-09-16 08:00] VITALS: BP 138/75
[2023-09-16 12:00] VITALS: BP 151/82
[2023-09-16] MEDS ORDERED: acetaZOLAMIDE 250 MG TAB PO SCH (14:20)
[2023-09-16 16:00] VITALS: BP 135/69
[2023-09-16 20:00] VITALS: BP 153/76
[2023-09-17] VITALS: BP 127/67
[2023-09-17 06:33] LABS: BUN 16 mg/dl (9-23); CHLORIDE 99 mmol/L (98-107); POTASSIUM 4.3 mmol/L (3.4-5.1)
[2023-09-17 06:46] LABS: BASO % 0.2 % (0.0-1.0); HEMATOCRIT 40.4 % (37.0-47.0); LYMPH % 5.6 % (27.0-41.0); MEAN CELL VOLUME 96.9 fl (81.0-99.0); MEAN CORPUSCULAR HGB 27.8 pg (27.0-31.0); MEAN CORPUSCULAR HGB CONC 28.7 g/dl (33.0-37.0); MEAN PLATELET VOLUME 10.9 fl (9.6-12.3); MONO # 0.8 10*3/uL (0.1-1.0); MONO % 4.3 % (3.0-9.0); NEUT # 15.9 10*3/uL (2.3-7.9); NEUT % 88.4 % (47.0-73.0); PLATELET COUNT AUTOMATED 425 10*3/uL (130-400); RED BLOOD COUNT 4.17 10*6/uL (4.10-5.10); RED CELL DISTRI WIDTH 13.7 % (0-14.5)
[2023-09-17 08:00] VITALS: BP 131/79
[2023-09-17 12:00] VITALS: BP 123/76
[2023-09-17 16:00] VITALS: BP 113/68
[2023-09-17] MEDS ORDERED: methylPREDNISolone sod succ 40 MG VIAL IV SCH (18:00)
[2023-09-17 20:00] VITALS: BP 135/75
[2023-09-17] MEDS ORDERED: LORazepam 1 MG TAB PO PRN (20:25)
[2023-09-17] MEDS ORDERED: busPIRone Hydrochloride 15 MG TAB PO SCH (22:00)
[2023-09-18] VITALS: BP 133/74
[2023-09-18 06:53] LABS: HEMATOCRIT 38.3 % (37.0-47.0); MEAN CELL VOLUME 96.2 fl (81.0-99.0); MEAN CORPUSCULAR HGB 27.9 pg (27.0-31.0); MEAN PLATELET VOLUME 10.5 fl (9.6-12.3); PLATELET COUNT AUTOMATED 432 10*3/uL (130-400); RED BLOOD COUNT 3.98 10*6/uL (4.10-5.10); RED CELL DISTRI WIDTH 13.8 % (0-14.5); WHITE BLOOD COUNT 18.6 10*3/uL (4.8-10.8)
[2023-09-18 06:55] LABS: MANUAL DIFF REFLEX YES
[2023-09-18 07:11] LABS: BUN 20 mg/dl (9-23); CHLORIDE 101 mmol/L (98-107)
[2023-09-18 07:29] LABS: BURR CELLS FEW; OVALOCYTES FEW; POLYCHROMASIA SLIGHT; TOTAL CELLS COUNTED 100 #CELLS
[2023-09-18 07:30] LABS: PLATELET SUFFICIENCY HIGH (NORMAL)
[2023-09-18 08:00] VITALS: BP 143/77
[2023-09-18] MEDS ORDERED: acetaZOLAMIDE 250 MG TAB PO SCH (10:00)
[2023-09-18 12:00] VITALS: BP 128/69
[2023-09-18] MEDS ORDERED: ACETAZOLAMIDE250 MG PO (14:29)
[2023-09-18] MEDS ORDERED: PREDNISONE10 MG PO (14:29)
[2023-09-18] MEDS ORDERED: LORazepam 0.5 MG TAB PO ONE (18:25)
[2023-09-18 20:00] VITALS: BP 105/59
[2023-09-19] MEDS ORDERED: methylPREDNISolone sod succ 40 MG VIAL IV SCH (10:00)
== END 2023-09-18 21:12 | disposition home or self-care (01) | DRG 871 ==
LOC: ED 22:18 → 4E 09-09 01:45 → EDHOLD 09-09 01:45 → 4E 09-09 20:47
PROVIDERS: Internal Medicine; Student in an Organized Health Care Education/Training Program; ADMIT Internal Medicine; ATTEND Internal Medicine
PROC: 5A09357 Assistance with Respiratory Ventilation, Less than 24 Consecutive Hours, Continuous Positive Airway Pressure (ICD-10-PCS; 2023-09-09)
PROC: 5A0935A Assistance with Respiratory Ventilation, Less than 24 Consecutive Hours, High Flow/Velocity Cannula (ICD-10-PCS; 2023-09-09)
PROC: 5A09357 Assistance with Respiratory Ventilation, Less than 24 Consecutive Hours, Continuous Positive Airway Pressure (ICD-10-PCS; principal; 2023-09-10)
PROC: 5A0935A Assistance with Respiratory Ventilation, Less than 24 Consecutive Hours, High Flow/Velocity Cannula (ICD-10-PCS; 2023-09-10)
PROC: 5A09357 Assistance with Respiratory Ventilation, Less than 24 Consecutive Hours, Continuous Positive Airway Pressure (ICD-10-PCS; 2023-09-11)
PROC: 5A0945A Assistance with Respiratory Ventilation, 24-96 Consecutive Hours, High Flow/Velocity Cannula (ICD-10-PCS; 2023-09-11)
PROC: 5A09357 Assistance with Respiratory Ventilation, Less than 24 Consecutive Hours, Continuous Positive Airway Pressure (ICD-10-PCS; 2023-09-12)
PROC: 5A0945A Assistance with Respiratory Ventilation, 24-96 Consecutive Hours, High Flow/Velocity Cannula (ICD-10-PCS; 2023-09-12)
PROC: 5A0935A Assistance with Respiratory Ventilation, Less than 24 Consecutive Hours, High Flow/Velocity Cannula (ICD-10-PCS; 2023-09-14)
PROC: 5A0935A Assistance with Respiratory Ventilation, Less than 24 Consecutive Hours, High Flow/Velocity Cannula (ICD-10-PCS; 2023-09-15)
PROC: 5A09357 Assistance with Respiratory Ventilation, Less than 24 Consecutive Hours, Continuous Positive Airway Pressure (ICD-10-PCS; 2023-09-16)
PROC: 5A0935A Assistance with Respiratory Ventilation, Less than 24 Consecutive Hours, High Flow/Velocity Cannula (ICD-10-PCS; 2023-09-16)
PROC: 5A0935A Assistance with Respiratory Ventilation, Less than 24 Consecutive Hours, High Flow/Velocity Cannula (ICD-10-PCS; 2023-09-17)
PROC: 5A09357 Assistance with Respiratory Ventilation, Less than 24 Consecutive Hours, Continuous Positive Airway Pressure (ICD-10-PCS; 2023-09-18)
PROC: 5A0935A Assistance with Respiratory Ventilation, Less than 24 Consecutive Hours, High Flow/Velocity Cannula (ICD-10-PCS; 2023-09-18)
DX: A41.9 Sepsis, unspecified organism (principal); J96.21 Acute and chronic respiratory failure with hypoxia; J96.22 Acute and chronic respiratory failure with hypercapnia; J44.1 Chronic obstructive pulmonary disease with (acute) exacerbation; N39.0 Urinary tract infection, site not specified; E87.29 Other acidosis; E44.0 Moderate protein-calorie malnutrition; F33.9 Major depressive disorder, recurrent, unspecified; J44.0 Chronic obstructive pulmonary disease with (acute) lower respiratory infection; J84.82 Adult pulmonary Langerhans cell histiocytosis; Z68.1 Body mass index [BMI] 19.9 or less, adult; K27.9 Peptic ulcer, site unspecified, unspecified as acute or chronic, without hemorrhage or perforation; D64.9 Anemia, unspecified; Z71.6 Tobacco abuse counseling; F41.1 Generalized anxiety disorder; R73.9 Hyperglycemia, unspecified; F17.210 Nicotine dependence, cigarettes, uncomplicated; M79.7 Fibromyalgia; I73.00 Raynaud's syndrome without gangrene; Z90.710 Acquired absence of both cervix and uterus; Z90.49 Acquired absence of other specified parts of digestive tract; Z82.5 Family history of asthma and other chronic lower respiratory diseases; Z79.899 Other long term (current) drug therapy

== ENCOUNTER 2023-10-16 21:07 | Inpatient (IN) | payer BC ==
[~2023-10-16] VITALS: Ht 152.4 cm; Wt 38.8 kg
[~2023-10-16 21:07] MED LIST changes: +ACETAZOLAMIDE250 MG PO
[2023-10-16] MEDS ORDERED: methylPREDNISolone sod succ 125 MG VIAL IV ONE (21:25)
[2023-10-16 21:32] LABS: BASO # 0.1 10*3/uL (0.0-0.1); BASO % 0.8 % (0.0-1.0); EOS # 0.5 10*3/uL (0.0-0.4); EOS % 8.2 % (1.0-4.0); HEMATOCRIT 43.3 % (37.0-47.0); LYMPH # 1.1 10*3/uL (1.3-4.4); LYMPH % 16.3 % (27.0-41.0); MEAN CELL VOLUME 101.2 fl (81.0-99.0); MEAN CORPUSCULAR HGB 27.8 pg (27.0-31.0); MEAN CORPUSCULAR HGB CONC 27.5 g/dl (33.0-37.0); MEAN PLATELET VOLUME 9.8 fl (9.6-12.3); MONO # 0.5 10*3/uL (0.1-1.0); MONO % 7.6 % (3.0-9.0); NEUT # 4.3 10*3/uL (2.3-7.9); NEUT % 66.9 % (47.0-73.0); PLATELET COUNT AUTOMATED 382 10*3/uL (130-400); RED BLOOD COUNT 4.28 10*6/uL (4.10-5.10); RED CELL DISTRI WIDTH 13.6 % (0-14.5); WHITE BLOOD COUNT 6.4 10*3/uL (4.8-10.8)
[2023-10-16 21:59] LABS: ALKALINE PHOSPHATASE 105 U/L (46-116); BUN 10 mg/dl (9-23); CHLORIDE 102 mmol/L (98-107); POTASSIUM 4.3 mmol/L (3.4-5.1); SGPT/ALT 25 U/L (5-49); TOTAL PROTEIN 6.4 gm/dL (6.0-8.0)
[2023-10-16] MEDS ORDERED: LORazepam 2 MG/ML VIAL IV ONE (23:50)
[2023-10-17] VITALS (11 sets, daily range): BP systolic 91–128; BP diastolic 55–76
[2023-10-17] MEDS ORDERED: ACETAMINOPHEN 650 MG SUPP R PRN (02:20)
[2023-10-17] MEDS ORDERED: ACETAMINOPHEN 325 MG TAB PO PRN (02:20)
[2023-10-17] MEDS ORDERED: Albuterol Sulf/Ipratropium 3 ML VIAL NEB SCH (02:20)
[2023-10-17] MEDS ORDERED: Magnesium Hydroxide 30 ML UDC PO PRN (02:20)
[2023-10-17] MEDS ORDERED: Ondansetron Hydrochloride 4 MG/2 ML VIAL IV PRN (02:20)
[2023-10-17] MEDS ORDERED: BISACODYL 10 MG SUPP R PRN (02:20)
[2023-10-17] MEDS ORDERED: AZITHROMYCIN 250 ML IV SCH (02:20)
[2023-10-17] MEDS ORDERED: BISACODYL 5 MG TAB PO PRN (02:20)
[2023-10-17] MEDS ORDERED: Ceftriaxone Sodium 1 GM in SYRINGE INFUSION 10 ML IV SCH (02:25)
[2023-10-17] MEDS ORDERED: Ceftriaxone Sodium 1 GM/10 ML SYR IV ONE (02:40)
[2023-10-17 02:52] LABS: ARTERIAL BLOOD GAS PH 7.261 (7.35-7.45)
[2023-10-17 03:09] LABS: URINE AMPHETAMINES Negative (1000ng/ml); URINE BARBITURATES Negative (200ng/ml); URINE BENZODIAZEPINES Negative (200ng/ml); URINE CANNABINOIDS (THC) Negative (50ng/ml); URINE COCAINE Negative (300ng/ml); URINE METHADONE Negative (300ng/ml); URINE OPIATES Negative (300ng/ml); URINE PHENCYCLIDINE Negative (25ng/ml)
[2023-10-17] MEDS ORDERED: BUPRENORPHINE-1 EAC1 SL (03:36)
[2023-10-17] MEDS ORDERED: hydrOXYzine pamoate 25 MG CAP PO ONE (06:50)
[2023-10-17] MEDS ORDERED: HYDROXYZINE HCL25 MG PO (07:33)
[2023-10-17] MEDS ORDERED: SERTRALINE HYDR50 MG PO (07:34)
[2023-10-17 07:51] LABS: BASO % 0.5 % (0.0-1.0); HEMATOCRIT 43.1 % (37.0-47.0); LYMPH # 0.7 10*3/uL (1.3-4.4); MEAN CELL VOLUME 99.5 fl (81.0-99.0); MEAN CORPUSCULAR HGB 27.9 pg (27.0-31.0); MEAN CORPUSCULAR HGB CONC 28.1 g/dl (33.0-37.0); MEAN PLATELET VOLUME 10.4 fl (9.6-12.3); MONO # 0.1 10*3/uL (0.1-1.0); MONO % 1.2 % (3.0-9.0); NEUT # 3.6 10*3/uL (2.3-7.9); NEUT % 83.1 % (47.0-73.0); PLATELET COUNT AUTOMATED 411 10*3/uL (130-400); RED BLOOD COUNT 4.33 10*6/uL (4.10-5.10); RED CELL DISTRI WIDTH 13.3 % (0-14.5); WHITE BLOOD COUNT 4.3 10*3/uL (4.8-10.8)
[2023-10-17 08:17] LABS: ALKALINE PHOSPHATASE 116 U/L (46-116); BUN 9 mg/dl (9-23); CHLORIDE 98 mmol/L (98-107); POTASSIUM 4.4 mmol/L (3.4-5.1); SGPT/ALT 24 U/L (5-49); TOTAL PROTEIN 6.2 gm/dL (6.0-8.0)
[2023-10-17 08:23] LABS: ABG BASE EXCESS 14.6 mmol/L (-2.0-2.0); ARTERIAL BLOOD GAS PH 7.413 (7.35-7.45)
[2023-10-17] MEDS ORDERED: LORazepam 2 MG/ML VIAL IV ONE (08:45)
[2023-10-17] MEDS ORDERED: methylPREDNISolone sod succ 40 MG VIAL IV SCH (10:00)
[2023-10-17] MEDS ORDERED: Enoxaparin Sodium 40 MG/0.4 ML SYR SC SCH (10:00)
[2023-10-17] MEDS ORDERED: BUPRENORPHINE HCL/NALOXONE 8 MG-2 MG SL TABLET SL SCH (22:00)
[2023-10-17] MEDS ORDERED: Sertraline Hydrochloride 50 MG TAB PO SCH (22:00)
[2023-10-17] MEDS ORDERED: busPIRone Hydrochloride 15 MG TAB PO SCH (22:00)
[2023-10-17] MEDS ORDERED: GABAPENTIN 600 MG TAB PO SCH (22:00)
[2023-10-18] MEDS ORDERED: hydrOXYzine pamoate 25 MG CAP PO SCH
[2023-10-18] MEDS ORDERED: Ceftriaxone Sodium 1 GM in SYRINGE INFUSION 10 ML IV SCH (02:00)
[2023-10-18] MEDS ORDERED: Levothyroxine Sodium 25 MCG TAB PO SCH (06:00)
[2023-10-18 06:57] LABS: BUN 18 mg/dl (9-23); CHLORIDE 101 mmol/L (98-107); POTASSIUM 4.7 mmol/L (3.4-5.1)
[2023-10-18 07:16] LABS: ABG BASE EXCESS 5.4 mmol/L (-2.0-2.0); ARTERIAL BLOOD GAS PH 7.339 (7.35-7.45)
[2023-10-18 08:00] VITALS: BP 108/58
[2023-10-18] MEDS ORDERED: Nicotine 7 MG PATCH T SCH (10:00)
[2023-10-18 12:00] VITALS: BP 129/74
[2023-10-18 16:00] VITALS: BP 122/62
[2023-10-18 20:00] VITALS: BP 115/77
[2023-10-19] VITALS: BP 115/71
[2023-10-19 06:36] LABS: BASO % 0.2 % (0.0-1.0); HEMATOCRIT 35.9 % (37.0-47.0); LYMPH # 0.8 10*3/uL (1.3-4.4); LYMPH % 9.3 % (27.0-41.0); MEAN CELL VOLUME 98.9 fl (81.0-99.0); MEAN CORPUSCULAR HGB 27.8 pg (27.0-31.0); MEAN CORPUSCULAR HGB CONC 28.1 g/dl (33.0-37.0); MEAN PLATELET VOLUME 10.4 fl (9.6-12.3); MONO # 0.2 10*3/uL (0.1-1.0); MONO % 2.6 % (3.0-9.0); NEUT # 7.9 10*3/uL (2.3-7.9); NEUT % 87.6 % (47.0-73.0); PLATELET COUNT AUTOMATED 345 10*3/uL (130-400); RED BLOOD COUNT 3.63 10*6/uL (4.10-5.10); RED CELL DISTRI WIDTH 13.9 % (0-14.5)
[2023-10-19 07:13] LABS: BUN 15 mg/dl (9-23); CHLORIDE 102 mmol/L (98-107); POTASSIUM 4.5 mmol/L (3.4-5.1)
[2023-10-19 08:00] VITALS: BP 104/59
[2023-10-19] MEDS ORDERED: AZITHROMYCIN 250 ML IV SCH (10:00)
[2023-10-19 12:00] VITALS: BP 127/87
[2023-10-19] MEDS ORDERED: ALPRAZolam 0.25 MG TAB PO PRN (12:55)
[2023-10-19 16:00] VITALS: BP 126/76
[2023-10-19 20:00] VITALS: BP 112/55
[2023-10-20] VITALS: BP 109/64
[2023-10-20 05:37] LABS: BUN 9 mg/dl (9-23); CHLORIDE 100 mmol/L (98-107)
[2023-10-20 06:06] LABS: HEMATOCRIT 38.8 % (37.0-47.0); MEAN CELL VOLUME 97.5 fl (81.0-99.0); MEAN CORPUSCULAR HGB 28.1 pg (27.0-31.0); MEAN CORPUSCULAR HGB CONC 28.9 g/dl (33.0-37.0); MEAN PLATELET VOLUME 10.9 fl (9.6-12.3); PLATELET COUNT AUTOMATED 356 10*3/uL (130-400); RED BLOOD COUNT 3.98 10*6/uL (4.10-5.10); RED CELL DISTRI WIDTH 13.9 % (0-14.5); WHITE BLOOD COUNT 11.3 10*3/uL (4.8-10.8)
[2023-10-20 06:13] LABS: MANUAL DIFF REFLEX YES
[2023-10-20 06:57] LABS: TOTAL CELLS COUNTED 100 #CELLS
[2023-10-20 06:58] LABS: BURR CELLS FEW; PLATELET SUFFICIENCY NORMAL (NORMAL); POLYCHROMASIA SLIGHT
[2023-10-20 08:00] VITALS: BP 124/74
[2023-10-20 12:00] VITALS: BP 122/62
[2023-10-20 16:00] VITALS: BP 136/76
[2023-10-20 20:00] VITALS: BP 138/91
[2023-10-21] VITALS: BP 115/67
[2023-10-21 08:00] VITALS: BP 126/77
[2023-10-21 12:00] VITALS: BP 121/79
[2023-10-21 16:00] VITALS: BP 143/69
[2023-10-21 20:02] VITALS: BP 117/65
[2023-10-22 00:02] VITALS: BP 116/62
[2023-10-22 08:00] VITALS: BP 127/74
[2023-10-22 11:53] VITALS: BP 122/44
[2023-10-22 15:31] VITALS: BP 117/58
[2023-10-22 20:00] VITALS: BP 127/73
[2023-10-23] VITALS: BP 102/68
[2023-10-23 08:00] VITALS: BP 134/72
[2023-10-23 12:00] VITALS: BP 130/68
[2023-10-23 16:00] VITALS: BP 123/65
[2023-10-23 20:00] VITALS: BP 119/65
[2023-10-24] VITALS: BP 149/78
[2023-10-24 08:00] VITALS: BP 114/89
[2023-10-24] MEDS ORDERED: SERTRALINE HYDR50 MG PO (10:39)
[2023-10-24] MEDS ORDERED: ALPRAZOLAM0.25 M2 PO (10:39)
[2023-10-24] MEDS ORDERED: SYNTHROID25 MCG PO (10:39)
[2023-10-24] MEDS ORDERED: HYDROXYZINE HCL25 MG PO (10:39)
[2023-10-24] MEDS ORDERED: BUSPIRONE HYDRO30 MG PO (10:39)
[2023-10-24] MEDS ORDERED: OMNICEF300 MG PO (10:41)
[2023-10-24 12:00] VITALS: BP 125/76
== END 2023-10-24 13:24 | disposition home or self-care (01) | DRG 189 ==
LOC: ED 21:07 → 4E 10-17 01:30 → EDHOLD 10-17 01:30 → 4E 10-17 19:17 → EDHOLD 10-17 21:06 → 4E 10-17 21:07
PROVIDERS: Internal Medicine; Student in an Organized Health Care Education/Training Program; ADMIT Internal Medicine; ATTEND Internal Medicine
PROC: 5A09357 Assistance with Respiratory Ventilation, Less than 24 Consecutive Hours, Continuous Positive Airway Pressure (ICD-10-PCS; principal; 2023-10-17)
PROC: 5A0955A Assistance with Respiratory Ventilation, Greater than 96 Consecutive Hours, High Flow/Velocity Cannula (ICD-10-PCS; 2023-10-17)
PROC: 5A09357 Assistance with Respiratory Ventilation, Less than 24 Consecutive Hours, Continuous Positive Airway Pressure (ICD-10-PCS; 2023-10-18)
PROC: 5A09357 Assistance with Respiratory Ventilation, Less than 24 Consecutive Hours, Continuous Positive Airway Pressure (ICD-10-PCS; 2023-10-19)
PROC: 5A09357 Assistance with Respiratory Ventilation, Less than 24 Consecutive Hours, Continuous Positive Airway Pressure (ICD-10-PCS; 2023-10-20)
PROC: 5A09357 Assistance with Respiratory Ventilation, Less than 24 Consecutive Hours, Continuous Positive Airway Pressure (ICD-10-PCS; 2023-10-22)
PROC: 5A09357 Assistance with Respiratory Ventilation, Less than 24 Consecutive Hours, Continuous Positive Airway Pressure (ICD-10-PCS; 2023-10-24)
DX: J96.21 Acute and chronic respiratory failure with hypoxia (principal); J44.1 Chronic obstructive pulmonary disease with (acute) exacerbation; E87.3 Alkalosis; J84.82 Adult pulmonary Langerhans cell histiocytosis; J44.0 Chronic obstructive pulmonary disease with (acute) lower respiratory infection; E87.29 Other acidosis; J96.22 Acute and chronic respiratory failure with hypercapnia; F41.1 Generalized anxiety disorder; D75.89 Other specified diseases of blood and blood-forming organs; J40 Bronchitis, not specified as acute or chronic; E03.9 Hypothyroidism, unspecified; M79.7 Fibromyalgia; D53.9 Nutritional anemia, unspecified; F17.210 Nicotine dependence, cigarettes, uncomplicated; J43.9 Emphysema, unspecified; E78.5 Hyperlipidemia, unspecified; R73.9 Hyperglycemia, unspecified; I73.00 Raynaud's syndrome without gangrene; F32.9 Major depressive disorder, single episode, unspecified; Z79.899 Other long term (current) drug therapy; Z79.01 Long term (current) use of anticoagulants; Z79.2 Long term (current) use of antibiotics; Z98.891 History of uterine scar from previous surgery; Z90.49 Acquired absence of other specified parts of digestive tract; Z90.711 Acquired absence of uterus with remaining cervical stump; Z82.5 Family history of asthma and other chronic lower respiratory diseases; Z82.49 Family history of ischemic heart disease and other diseases of the circulatory system

== ENCOUNTER 2023-11-17 23:13 | Inpatient (IN) | payer BC ==
[~2023-11-17] VITALS: Ht 152.4 cm; Wt 42.5 kg
[~2023-11-17 23:13] MED LIST changes: +ALPRAZOLAM0.25 M2 PO; +BUPRENORPHINE-1 EAC1 SL; +HYDROXYZINE HCL25 MG PO; +OMNICEF300 MG PO
[2023-11-17] MEDS ORDERED: Midazolam Hydrochloride 2 MG/2 ML VIAL IV ONE (23:30)
[2023-11-17] MEDS ORDERED: Albuterol Sulf/Ipratropium 3 ML VIAL NEB ONE (23:30)
[2023-11-17] MEDS ORDERED: methylPREDNISolone sod succ 125 MG VIAL IV ONE (23:30)
[2023-11-17 23:35] VITALS: BP 130/72
[2023-11-17 23:53] LABS: ABG O2 SATURATION 89.6 % (94.0-98.0); ARTERIAL BLOOD GAS PH 7.334 (7.350-7.450)
[2023-11-18 00:25] LABS: BASO # 0.1 10*3/uL (0.0-0.1); BASO % 0.6 % (0.0-1.0); EOS # 0.7 10*3/uL (0.0-0.4); EOS % 6.6 % (1.0-4.0); HEMATOCRIT 42.5 % (37.0-47.0); LYMPH # 1.4 10*3/uL (1.3-4.4); LYMPH % 13.4 % (27.0-41.0); MEAN CELL VOLUME 101.9 fl (81.0-99.0); MEAN CORPUSCULAR HGB 28.3 pg (27.0-31.0); MEAN CORPUSCULAR HGB CONC 27.8 g/dl (33.0-37.0); MEAN PLATELET VOLUME 9.9 fl (9.6-12.3); MONO # 0.7 10*3/uL (0.1-1.0); MONO % 6.5 % (3.0-9.0); NEUT # 7.7 10*3/uL (2.3-7.9); NEUT % 72.7 % (47.0-73.0); PLATELET COUNT AUTOMATED 338 10*3/uL (130-400); RED BLOOD COUNT 4.17 10*6/uL (4.10-5.10); RED CELL DISTRI WIDTH 13.2 % (0-14.5); WHITE BLOOD COUNT 10.6 10*3/uL (4.8-10.8)
[2023-11-18 00:47] LABS: ALKALINE PHOSPHATASE 78 U/L (46-116); BUN 9 mg/dl (9-23); CHLORIDE 97 mmol/L (98-107); LIPASE 30 U/L (12-53); POTASSIUM 3.9 mmol/L (3.4-5.1); SGPT/ALT 23 U/L (5-49); TOTAL PROTEIN 6.4 gm/dL (6.0-8.0)
[2023-11-18 01:04] LABS: ACT PARTIAL THROMBO TIME 27.8 SECONDS (20.0-32.1)
[2023-11-18 02:08] VITALS: BP 104/71
[2023-11-18] MEDS ORDERED: AZITHROMYCIN 250 ML IV ONE (03:15)
[2023-11-18] MEDS ORDERED: Ceftriaxone Sodium 1 GM/10 ML SYR IV ONE (03:15)
[2023-11-18] MEDS ORDERED: ACETAMINOPHEN 650 MG SUPP R PRN (03:30)
[2023-11-18] MEDS ORDERED: Ondansetron Hydrochloride 4 MG/2 ML VIAL IV PRN (03:30)
[2023-11-18] MEDS ORDERED: TEMAZEPAM 15 MG CAP PO PRN (03:30)
[2023-11-18] MEDS ORDERED: ACETAMINOPHEN 325 MG TAB PO PRN (03:30)
[2023-11-18] MEDS ORDERED: Albuterol Sulf/Ipratropium 3 ML VIAL NEB PRN (03:35)
[2023-11-18 04:09] LABS: BILIRUBIN Negative (Negative); BLOOD Negative (Negative); CLARITY Turbid (Clear); COLOR Yellow (Yellow); GLUCOSE Negative (Negative); KETONE 2+ (Negative); LEUKO ESTERASE 2+ (Negative); NITRITE Negative (Negative); PH 7.5 (4.5-8.0)
[2023-11-18] MEDS ORDERED: hydrOXYzine pamoate 25 MG CAP PO ONE (04:15)
[2023-11-18 04:27] LABS: BACTERIA 1+; WBC 16-20 wbc/hpf (0-5)
[2023-11-18 06:35] VITALS: BP 107/60
[2023-11-18 07:11] LABS: HEMATOCRIT 42.3 % (37.0-47.0); MEAN CORPUSCULAR HGB 28.2 pg (27.0-31.0); MEAN CORPUSCULAR HGB CONC 27.9 g/dl (33.0-37.0); MEAN PLATELET VOLUME 10.7 fl (9.6-12.3); PLATELET COUNT AUTOMATED 316 10*3/uL (130-400); RED BLOOD COUNT 4.19 10*6/uL (4.10-5.10); RED CELL DISTRI WIDTH 13.2 % (0-14.5); WHITE BLOOD COUNT 5.3 10*3/uL (4.8-10.8)
[2023-11-18 07:18] LABS: MANUAL DIFF REFLEX YES
[2023-11-18 07:56] LABS: ATYPICAL LYMPHS 2 % (0-0); BASOPHILS 1 % (0-1); TOTAL CELLS COUNTED 100 #CELLS
[2023-11-18 07:58] LABS: PLATELET SUFFICIENCY NORMAL (NORMAL)
[2023-11-18 08:43] VITALS: BP 104/60
[2023-11-18 09:08] LABS: BUN 10 mg/dl (9-23); CHLORIDE 99 mmol/L (98-107)
[2023-11-18] MEDS ORDERED: Enoxaparin Sodium 40 MG/0.4 ML SYR SC SCH (10:00)
[2023-11-18 11:48] VITALS: BP 102/57
[2023-11-18] MEDS ORDERED: hydrOXYzine pamoate 25 MG CAP PO PRN (14:40)
[2023-11-18 14:49] VITALS: BP 117/94
[2023-11-18] MEDS ORDERED: Pantoprazole Sodium 40 MG TAB PO SCH (18:00)
[2023-11-18 19:22] LABS: URINE AMPHETAMINES Negative (1000ng/ml); URINE BARBITURATES Negative (200ng/ml); URINE BENZODIAZEPINES Positive (200ng/ml); URINE CANNABINOIDS (THC) Negative (50ng/ml); URINE COCAINE Negative (300ng/ml); URINE METHADONE Negative (300ng/ml); URINE OPIATES Negative (300ng/ml); URINE PHENCYCLIDINE Negative (25ng/ml)
[2023-11-18 20:00] VITALS: BP 90/50; BP 98/54
[2023-11-18] MEDS ORDERED: Ketorolac Tromethamine 15 MG/ML VIAL IV ONE (20:10)
[2023-11-18] MEDS ORDERED: Sertraline Hydrochloride 50 MG TAB PO SCH (22:00)
[2023-11-18] MEDS ORDERED: busPIRone Hydrochloride 15 MG TAB PO SCH (22:00)
[2023-11-18] MEDS ORDERED: GABAPENTIN 600 MG TAB PO SCH (22:00)
[2023-11-18] MEDS ORDERED: methylPREDNISolone sod succ 40 MG VIAL IV SCH (22:00)
[2023-11-18] MEDS ORDERED: BUPRENORPHINE HCL/NALOXONE 8 MG-2 MG SL TABLET SL SCH (22:00)
[2023-11-18] MEDS ORDERED: LORazepam 2 MG/ML VIAL IV ONE (23:10)
[2023-11-18] MEDS ORDERED: LORazepam 1 MG TAB PO PRN (23:15)
[2023-11-19] VITALS: BP 117/62
[2023-11-19 05:59] LABS: BUN 15 mg/dl (9-23); CHLORIDE 98 mmol/L (98-107); POTASSIUM 4.6 mmol/L (3.4-5.1)
[2023-11-19] MEDS ORDERED: Levothyroxine Sodium 25 MCG TAB PO SCH (06:00)
[2023-11-19 07:29] LABS: BASO % 0.5 % (0.0-1.0); EOS % 0.1 % (1.0-4.0); HEMATOCRIT 37.4 % (37.0-47.0); LYMPH # 1.1 10*3/uL (1.3-4.4); LYMPH % 14.4 % (27.0-41.0); MEAN CELL VOLUME 100.3 fl (81.0-99.0); MEAN CORPUSCULAR HGB 28.4 pg (27.0-31.0); MEAN CORPUSCULAR HGB CONC 28.3 g/dl (33.0-37.0); MEAN PLATELET VOLUME 10.1 fl (9.6-12.3); MONO # 0.2 10*3/uL (0.1-1.0); MONO % 3.2 % (3.0-9.0); NEUT % 81.7 % (47.0-73.0); PLATELET COUNT AUTOMATED 307 10*3/uL (130-400); RED BLOOD COUNT 3.73 10*6/uL (4.10-5.10); RED CELL DISTRI WIDTH 13.2 % (0-14.5); WHITE BLOOD COUNT 7.4 10*3/uL (4.8-10.8)
[2023-11-19 08:00] VITALS: BP 126/107
[2023-11-19] MEDS ORDERED: methylPREDNISolone sod succ 40 MG VIAL IV SCH (10:00)
[2023-11-19] MEDS ORDERED: Ceftriaxone Sodium 1 GM in SYRINGE INFUSION 10 ML IV SCH (10:00)
[2023-11-19] MEDS ORDERED: AZITHROMYCIN 250 ML IV SCH (10:00)
[2023-11-19 12:00] VITALS: BP 112/68
[2023-11-19 16:00] VITALS: BP 104/62
[2023-11-19 20:00] VITALS: BP 114/73
[2023-11-19] MEDS ORDERED: Ketorolac Tromethamine 15 MG/ML VIAL IV ONE (21:55)
[2023-11-20] VITALS: BP 113/69
[2023-11-20 08:00] VITALS: BP 118/62
[2023-11-20 12:00] VITALS: BP 126/66
[2023-11-20 16:00] VITALS: BP 115/47
[2023-11-20 20:00] VITALS: BP 111/58
[2023-11-20] MEDS ORDERED: BISACODYL 5 MG TAB PO PRN (23:55)
[2023-11-21] VITALS: BP 122/66
[2023-11-21 08:00] VITALS: BP 121/66
[2023-11-21 11:21] VITALS: BP 126/73
[2023-11-21 15:15] VITALS: BP 113/65
[2023-11-21 20:00] VITALS: BP 115/68
[2023-11-22] VITALS: BP 126/77
[2023-11-22 08:00] VITALS: BP 111/56
[2023-11-22 12:00] VITALS: BP 117/79
[2023-11-22 16:00] VITALS: BP 120/68
[2023-11-22 20:00] VITALS: BP 118/60
[2023-11-23] VITALS: BP 130/94
[2023-11-23 05:40] LABS: BUN 13 mg/dl (9-23); CHLORIDE 97 mmol/L (98-107); POTASSIUM 4.6 mmol/L (3.4-5.1)
[2023-11-23 06:02] LABS: HEMATOCRIT 38.7 % (37.0-47.0); MEAN CELL VOLUME 99.5 fl (81.0-99.0); MEAN CORPUSCULAR HGB CONC 28.2 g/dl (33.0-37.0); MEAN PLATELET VOLUME 10.9 fl (9.6-12.3); PLATELET COUNT AUTOMATED 366 10*3/uL (130-400); RED BLOOD COUNT 3.89 10*6/uL (4.10-5.10); RED CELL DISTRI WIDTH 13.6 % (0-14.5); WHITE BLOOD COUNT 13.2 10*3/uL (4.8-10.8)
[2023-11-23 06:27] LABS: MANUAL DIFF REFLEX YES
[2023-11-23 07:29] LABS: PLATELET SUFFICIENCY NORMAL (NORMAL); TOTAL CELLS COUNTED 100 #CELLS
[2023-11-23 08:00] VITALS: BP 111/68
[2023-11-23] MEDS ORDERED: hydrOXYzine pamoate 25 MG CAP PO ONE (11:30)
[2023-11-23 12:00] VITALS: BP 135/79
[2023-11-23 16:00] VITALS: BP 120/72
[2023-11-23 20:00] VITALS: BP 113/59
[2023-11-24] VITALS: BP 113/63
[2023-11-24 08:00] VITALS: BP 136/79
[2023-11-24] MEDS ORDERED: methylPREDNISolone sod succ 40 MG VIAL IV SCH (10:00)
[2023-11-24 12:00] VITALS: BP 148/87
[2023-11-24 16:00] VITALS: BP 106/61
[2023-11-24 20:00] VITALS: BP 114/76
[2023-11-25] VITALS: BP 143/92
[2023-11-25 06:43] LABS: BASO % 0.2 % (0.0-1.0); EOS # 0.2 10*3/uL (0.0-0.4); EOS % 1.8 % (1.0-4.0); HEMATOCRIT 37.8 % (37.0-47.0); LYMPH # 2.2 10*3/uL (1.3-4.4); LYMPH % 17.2 % (27.0-41.0); MEAN CORPUSCULAR HGB 27.7 pg (27.0-31.0); MEAN PLATELET VOLUME 10.7 fl (9.6-12.3); MONO # 0.9 10*3/uL (0.1-1.0); MONO % 6.9 % (3.0-9.0); NEUT # 9.3 10*3/uL (2.3-7.9); NEUT % 73.3 % (47.0-73.0); PLATELET COUNT AUTOMATED 416 10*3/uL (130-400); RED BLOOD COUNT 3.82 10*6/uL (4.10-5.10); RED CELL DISTRI WIDTH 13.7 % (0-14.5); WHITE BLOOD COUNT 12.6 10*3/uL (4.8-10.8)
[2023-11-25 06:54] LABS: BUN 16 mg/dl (9-23); CHLORIDE 98 mmol/L (98-107)
[2023-11-25 08:00] VITALS: BP 131/72
[2023-11-25 12:00] VITALS: BP 131/70
[2023-11-25 16:00] VITALS: BP 117/69
[2023-11-25 20:00] VITALS: BP 115/60
[2023-11-26] VITALS: BP 103/59
[2023-11-26] MEDS ORDERED: LORazepam 1 MG TAB PO PRN (07:55)
[2023-11-26 08:00] VITALS: BP 130/73
[2023-11-26] MEDS ORDERED: BUPRENORPHINE HCL/NALOXONE 8 MG-2 MG SL TABLET SL SCH (10:00)
[2023-11-26] MEDS ORDERED: RIVAROXABAN 10 MG TAB PO SCH (10:00)
[2023-11-26 12:00] VITALS: BP 136/69
[2023-11-26] MEDS ORDERED: AZITHROMYCIN 250 ML IV SCH (12:00)
[2023-11-26] MEDS ORDERED: Ceftriaxone Sodium 1 GM in SYRINGE INFUSION 10 ML IV SCH (13:00)
[2023-11-26] MEDS ORDERED: busPIRone Hydrochloride 15 MG TAB PO SCH (14:00)
[2023-11-26 16:00] VITALS: BP 109/51
[2023-11-26 20:00] VITALS: BP 117/62
[2023-11-27] VITALS: BP 106/45
[2023-11-27 06:53] LABS: BASO % 0.3 % (0.0-1.0); EOS # 0.4 10*3/uL (0.0-0.4); EOS % 3.2 % (1.0-4.0); HEMATOCRIT 37.2 % (37.0-47.0); LYMPH # 2.8 10*3/uL (1.3-4.4); LYMPH % 23.5 % (27.0-41.0); MEAN CELL VOLUME 97.4 fl (81.0-99.0); MEAN CORPUSCULAR HGB 28.3 pg (27.0-31.0); MEAN PLATELET VOLUME 10.3 fl (9.6-12.3); MONO # 1.1 10*3/uL (0.1-1.0); MONO % 9.6 % (3.0-9.0); NEUT # 7.4 10*3/uL (2.3-7.9); NEUT % 62.7 % (47.0-73.0); PLATELET COUNT AUTOMATED 469 10*3/uL (130-400); RED BLOOD COUNT 3.82 10*6/uL (4.10-5.10); RED CELL DISTRI WIDTH 13.4 % (0-14.5); WHITE BLOOD COUNT 11.7 10*3/uL (4.8-10.8)
[2023-11-27 07:50] LABS: BUN 17 mg/dl (9-23); CHLORIDE 97 mmol/L (98-107); POTASSIUM 4.1 mmol/L (3.4-5.1)
[2023-11-27 08:00] VITALS: BP 120/65
[2023-11-27 12:00] VITALS: BP 135/79
[2023-11-27 16:00] VITALS: BP 110/50
== END 2023-11-27 19:40 | disposition home or self-care (01) | DRG 189 ==
LOC: ED 23:13 → 4E 11-18 03:20 → EDHOLD 11-18 03:20 → 4E 11-18 12:39
PROVIDERS: Internal Medicine; Student in an Organized Health Care Education/Training Program; ADMIT Internal Medicine; ATTEND Internal Medicine
PROC: 5A09357 Assistance with Respiratory Ventilation, Less than 24 Consecutive Hours, Continuous Positive Airway Pressure (ICD-10-PCS; principal; 2023-11-18)
PROC: 5A09357 Assistance with Respiratory Ventilation, Less than 24 Consecutive Hours, Continuous Positive Airway Pressure (ICD-10-PCS; 2023-11-19)
PROC: 5A09357 Assistance with Respiratory Ventilation, Less than 24 Consecutive Hours, Continuous Positive Airway Pressure (ICD-10-PCS; 2023-11-20)
PROC: 5A09357 Assistance with Respiratory Ventilation, Less than 24 Consecutive Hours, Continuous Positive Airway Pressure (ICD-10-PCS; 2023-11-21)
PROC: 5A09357 Assistance with Respiratory Ventilation, Less than 24 Consecutive Hours, Continuous Positive Airway Pressure (ICD-10-PCS; 2023-11-22)
PROC: 5A0935A Assistance with Respiratory Ventilation, Less than 24 Consecutive Hours, High Flow/Velocity Cannula (ICD-10-PCS; 2023-11-23)
PROC: 5A09357 Assistance with Respiratory Ventilation, Less than 24 Consecutive Hours, Continuous Positive Airway Pressure (ICD-10-PCS; 2023-11-24)
PROC: 5A0935A Assistance with Respiratory Ventilation, Less than 24 Consecutive Hours, High Flow/Velocity Cannula (ICD-10-PCS; 2023-11-24)
PROC: 5A0935A Assistance with Respiratory Ventilation, Less than 24 Consecutive Hours, High Flow/Velocity Cannula (ICD-10-PCS; 2023-11-25)
PROC: 5A0935A Assistance with Respiratory Ventilation, Less than 24 Consecutive Hours, High Flow/Velocity Cannula (ICD-10-PCS; 2023-11-26)
PROC: 5A0935A Assistance with Respiratory Ventilation, Less than 24 Consecutive Hours, High Flow/Velocity Cannula (ICD-10-PCS; 2023-11-27)
DX: J96.21 Acute and chronic respiratory failure with hypoxia (principal); J44.1 Chronic obstructive pulmonary disease with (acute) exacerbation; E44.0 Moderate protein-calorie malnutrition; E87.29 Other acidosis; J84.82 Adult pulmonary Langerhans cell histiocytosis; Z68.1 Body mass index [BMI] 19.9 or less, adult; E87.3 Alkalosis; J96.22 Acute and chronic respiratory failure with hypercapnia; R73.9 Hyperglycemia, unspecified; D53.9 Nutritional anemia, unspecified; D50.9 Iron deficiency anemia, unspecified; E87.8 Other disorders of electrolyte and fluid balance, not elsewhere classified; F17.210 Nicotine dependence, cigarettes, uncomplicated; Z71.6 Tobacco abuse counseling; K27.9 Peptic ulcer, site unspecified, unspecified as acute or chronic, without hemorrhage or perforation; F41.1 Generalized anxiety disorder; K59.00 Constipation, unspecified; M79.7 Fibromyalgia; F32.9 Major depressive disorder, single episode, unspecified; I73.00 Raynaud's syndrome without gangrene; K22.89 Other specified disease of esophagus; J43.9 Emphysema, unspecified; Z79.51 Long term (current) use of inhaled steroids; Z79.899 Other long term (current) drug therapy; Z90.710 Acquired absence of both cervix and uterus; Z98.891 History of uterine scar from previous surgery; Z82.3 Family history of stroke; Z82.5 Family history of asthma and other chronic lower respiratory diseases; Z91.198 Patient's noncompliance with other medical treatment and regimen for other reason

== ENCOUNTER 2024-01-22 23:19 | Inpatient (IN) | payer BC ==
[~2024-01-22] VITALS: Ht 152.4 cm; Wt 39.1 kg
[~2024-01-22 23:19] MED LIST changes: +VIBRA-TAB100 MG PO
[2024-01-22] MEDS ORDERED: LORazepam 2 MG/ML VIAL IV ONE (23:25)
[2024-01-22] MEDS ORDERED: methylPREDNISolone sod succ 125 MG VIAL IV ONE (23:25)
[2024-01-22 23:44] LABS: BASO # 0.1 10*3/uL (0.0-0.1); BASO % 0.8 % (0.0-1.0); EOS # 0.4 10*3/uL (0.0-0.4); EOS % 6.1 % (1.0-4.0); HEMATOCRIT 38.1 % (37.0-47.0); MEAN CELL VOLUME 97.9 fl (81.0-99.0); MEAN CORPUSCULAR HGB CONC 27.6 g/dl (33.0-37.0); MONO # 0.6 10*3/uL (0.1-1.0); MONO % 10.5 % (3.0-9.0); NEUT # 3.8 10*3/uL (2.3-7.9); NEUT % 63.3 % (47.0-73.0); PLATELET COUNT AUTOMATED 318 10*3/uL (130-400); RED BLOOD COUNT 3.89 10*6/uL (4.10-5.10); RED CELL DISTRI WIDTH 13.2 % (0-14.5)
[2024-01-23] VITALS (7 sets, daily range): BP systolic 99–141; BP diastolic 61–82
[2024-01-23 00:07] LABS: BUN 11 mg/dl (9-23); CHLORIDE 95 mmol/L (98-107); POTASSIUM 3.7 mmol/L (3.4-5.1)
[2024-01-23] MEDS ORDERED: ACETAMINOPHEN 650 MG SUPP R PRN (02:20)
[2024-01-23] MEDS ORDERED: Ondansetron Hydrochloride 4 MG/2 ML VIAL IV PRN (02:20)
[2024-01-23] MEDS ORDERED: Magnesium Hydroxide 30 ML UDC PO PRN (02:20)
[2024-01-23] MEDS ORDERED: BISACODYL 5 MG TAB PO PRN (02:20)
[2024-01-23] MEDS ORDERED: ACETAMINOPHEN 325 MG TAB PO PRN (02:20)
[2024-01-23] MEDS ORDERED: TEMAZEPAM 15 MG CAP PO PRN (02:20)
[2024-01-23] MEDS ORDERED: BISACODYL 10 MG SUPP R PRN (02:20)
[2024-01-23] MEDS ORDERED: Acetaminophen/Hydrocodone 5 MG/325 MG TABLET PO PRN (02:20)
[2024-01-23] MEDS ORDERED: Albuterol Sulf/Ipratropium 3 ML VIAL NEB SCH (02:25)
[2024-01-23 02:56] LABS: ABG O2 SATURATION 94.9 % (94.0-98.0); ARTERIAL BLOOD GAS PH 7.297 (7.350-7.450); ARTERIAL BLOOD GAS PO2 75.1 mmHg (83.0-108.0)
[2024-01-23] MEDS ORDERED: hydrOXYzine pamoate 25 MG CAP PO PRN (03:15)
[2024-01-23 05:27] LABS: ALKALINE PHOSPHATASE 104 U/L (46-116); BUN 11 mg/dl (9-23); CHLORIDE 94 mmol/L (98-107); FREE T4 1.01 ng/dl (0.89-1.76); POTASSIUM 4.2 mmol/L (3.4-5.1); SGPT/ALT 18 U/L (5-49); TOTAL PROTEIN 6.6 gm/dL (6.0-8.0)
[2024-01-23] MEDS ORDERED: Levothyroxine Sodium 25 MCG TAB PO SCH (06:00)
[2024-01-23] MEDS ORDERED: busPIRone Hydrochloride 15 MG TAB PO SCH (06:00)
[2024-01-23] MEDS ORDERED: GABAPENTIN 600 MG TAB PO SCH (06:00)
[2024-01-23 06:11] LABS: HEMATOCRIT 38.2 % (37.0-47.0); MEAN CELL VOLUME 97.7 fl (81.0-99.0); MEAN CORPUSCULAR HGB 27.4 pg (27.0-31.0); MEAN PLATELET VOLUME 11.3 fl (9.6-12.3); PLATELET COUNT AUTOMATED 359 10*3/uL (130-400); RED BLOOD COUNT 3.91 10*6/uL (4.10-5.10); RED CELL DISTRI WIDTH 13.2 % (0-14.5)
[2024-01-23 06:18] LABS: MANUAL DIFF REFLEX YES
[2024-01-23 07:44] LABS: PLATELET SUFFICIENCY NORMAL (NORMAL); TOTAL CELLS COUNTED 100 #CELLS
[2024-01-23] MEDS ORDERED: GUAIFENESIN 600 MG TAB ER PO SCH (10:00)
[2024-01-23] MEDS ORDERED: methylPREDNISolone sod succ 40 MG VIAL IV SCH (10:00)
[2024-01-23] MEDS ORDERED: AZITHROMYCIN 250 ML IV SCH (10:00)
[2024-01-23] MEDS ORDERED: Pantoprazole Sodium 40 MG TAB PO SCH (10:00)
[2024-01-23] MEDS ORDERED: BUPRENORPHINE HCL/NALOXONE 8 MG-2 MG SL TABLET SL SCH (10:00)
[2024-01-23] MEDS ORDERED: Enoxaparin Sodium 40 MG/0.4 ML SYR SC SCH (10:00)
[2024-01-23] MEDS ORDERED: Ceftriaxone Sodium 1 GM in SYRINGE INFUSION 10 ML IV SCH (10:00)
[2024-01-23] MEDS ORDERED: Sertraline Hydrochloride 50 MG TAB PO SCH (22:00)
[2024-01-24] VITALS: BP 93/43
[2024-01-24 08:00] VITALS: BP 123/67
[2024-01-24 12:00] VITALS: BP 140/82
[2024-01-24 16:00] VITALS: BP 156/88
[2024-01-24 20:00] VITALS: BP 126/66
[2024-01-25] VITALS: BP 125/71
[2024-01-25 08:00] VITALS: BP 120/72
[2024-01-25 12:00] VITALS: BP 132/62
[2024-01-25 14:36] VITALS: BP 119/74
[2024-01-25 16:00] VITALS: BP 113/61
[2024-01-25 20:00] VITALS: BP 116/57
[2024-01-26] VITALS: BP 107/60
[2024-01-26 05:55] LABS: BUN 10 mg/dl (9-23); CHLORIDE 95 mmol/L (98-107); POTASSIUM 4.4 mmol/L (3.4-5.1)
[2024-01-26 06:22] LABS: BASO % 0.2 % (0.0-1.0); HEMATOCRIT 39.5 % (37.0-47.0); MEAN CELL VOLUME 99.2 fl (81.0-99.0); MEAN CORPUSCULAR HGB 27.1 pg (27.0-31.0); MEAN CORPUSCULAR HGB CONC 27.3 g/dl (33.0-37.0); MEAN PLATELET VOLUME 10.6 fl (9.6-12.3); MONO # 0.1 10*3/uL (0.1-1.0); MONO % 1.2 % (3.0-9.0); NEUT # 9.3 10*3/uL (2.3-7.9); NEUT % 89.4 % (47.0-73.0); PLATELET COUNT AUTOMATED 414 10*3/uL (130-400); RED BLOOD COUNT 3.98 10*6/uL (4.10-5.10); RED CELL DISTRI WIDTH 13.1 % (0-14.5); WHITE BLOOD COUNT 10.4 10*3/uL (4.8-10.8)
[2024-01-26 08:00] VITALS: BP 138/76
[2024-01-26 12:00] VITALS: BP 140/75
[2024-01-26 16:00] VITALS: BP 118/65
[2024-01-26 20:00] VITALS: BP 118/70
[2024-01-27 04:00] VITALS: BP 120/68
[2024-01-27 06:21] LABS: BUN 12 mg/dl (9-23); CHLORIDE 95 mmol/L (98-107); POTASSIUM 4.6 mmol/L (3.4-5.1)
[2024-01-27 06:23] LABS: BASO % 0.1 % (0.0-1.0); HEMATOCRIT 36.6 % (37.0-47.0); MEAN CELL VOLUME 97.1 fl (81.0-99.0); MEAN CORPUSCULAR HGB 26.8 pg (27.0-31.0); MEAN CORPUSCULAR HGB CONC 27.6 g/dl (33.0-37.0); MEAN PLATELET VOLUME 10.3 fl (9.6-12.3); MONO # 0.2 10*3/uL (0.1-1.0); MONO % 1.8 % (3.0-9.0); NEUT # 8.4 10*3/uL (2.3-7.9); NEUT % 87.8 % (47.0-73.0); PLATELET COUNT AUTOMATED 422 10*3/uL (130-400); RED BLOOD COUNT 3.77 10*6/uL (4.10-5.10); RED CELL DISTRI WIDTH 13.2 % (0-14.5); WHITE BLOOD COUNT 9.6 10*3/uL (4.8-10.8)
[2024-01-27 08:00] VITALS: BP 119/83
[2024-01-27 12:00] VITALS: BP 119/56; BP 147/78
[2024-01-27 16:00] VITALS: BP 136/69
[2024-01-27 20:00] VITALS: BP 128/67
[2024-01-28] VITALS: BP 137/68
[2024-01-28 06:19] LABS: BASO % 0.1 % (0.0-1.0); HEMATOCRIT 38.9 % (37.0-47.0); MEAN CELL VOLUME 96.8 fl (81.0-99.0); MEAN CORPUSCULAR HGB 26.6 pg (27.0-31.0); MEAN CORPUSCULAR HGB CONC 27.5 g/dl (33.0-37.0); MEAN PLATELET VOLUME 10.3 fl (9.6-12.3); MONO # 0.2 10*3/uL (0.1-1.0); MONO % 1.9 % (3.0-9.0); NEUT # 8.5 10*3/uL (2.3-7.9); NEUT % 89.4 % (47.0-73.0); PLATELET COUNT AUTOMATED 464 10*3/uL (130-400); RED BLOOD COUNT 4.02 10*6/uL (4.10-5.10); RED CELL DISTRI WIDTH 13.2 % (0-14.5); WHITE BLOOD COUNT 9.5 10*3/uL (4.8-10.8)
[2024-01-28 06:29] LABS: BUN 16 mg/dl (9-23); CHLORIDE 93 mmol/L (98-107); POTASSIUM 4.7 mmol/L (3.4-5.1)
[2024-01-28 08:00] VITALS: BP 126/64
[2024-01-28] MEDS ORDERED: SODIUM CHLORIDE 0.9% 500 ML IV ONE (11:00)
[2024-01-28 12:00] VITALS: BP 134/67
[2024-01-28 18:00] VITALS: BP 119/65
[2024-01-28 20:00] VITALS: BP 137/48
[2024-01-29] VITALS: BP 136/68
[2024-01-29 06:24] LABS: BUN 17 mg/dl (9-23); CHLORIDE 97 mmol/L (98-107)
[2024-01-29 06:30] LABS: POTASSIUM 3.5 mmol/L (3.4-5.1)
[2024-01-29 06:31] LABS: BASO % 0.3 % (0.0-1.0); EOS # 0.3 10*3/uL (0.0-0.4); EOS % 2.5 % (1.0-4.0); HEMATOCRIT 35.7 % (37.0-47.0); MEAN CELL VOLUME 96.5 fl (81.0-99.0); MEAN CORPUSCULAR HGB 26.8 pg (27.0-31.0); MEAN CORPUSCULAR HGB CONC 27.7 g/dl (33.0-37.0); MEAN PLATELET VOLUME 10.8 fl (9.6-12.3); NEUT # 7.7 10*3/uL (2.3-7.9); NEUT % 66.8 % (47.0-73.0); PLATELET COUNT AUTOMATED 465 10*3/uL (130-400); RED CELL DISTRI WIDTH 13.5 % (0-14.5); WHITE BLOOD COUNT 11.5 10*3/uL (4.8-10.8)
[2024-01-29 08:00] VITALS: BP 116/73
[2024-01-29] MEDS ORDERED: methylPREDNISolone sod succ 40 MG VIAL IV SCH (10:00)
[2024-01-29] MEDS ORDERED: MUCUS RELIEF E600 MG PO (10:30)
[2024-01-29] MEDS ORDERED: ONDANSETRON HYDR4 MG PO (11:14)
[2024-01-29 12:00] VITALS: BP 133/73
== END 2024-01-29 13:09 | disposition home or self-care (01) | DRG 196 ==
LOC: ED 23:19 → 4E 01-23 01:46 → EDHOLD 01-23 01:46 → 4E 01-23 13:44
PROVIDERS: Internal Medicine; Student in an Organized Health Care Education/Training Program; ADMIT Internal Medicine; ATTEND Internal Medicine
PROC: 5A09357 Assistance with Respiratory Ventilation, Less than 24 Consecutive Hours, Continuous Positive Airway Pressure (ICD-10-PCS; principal; 2024-01-23)
PROC: 5A0935A Assistance with Respiratory Ventilation, Less than 24 Consecutive Hours, High Flow/Velocity Cannula (ICD-10-PCS; 2024-01-23)
PROC: 5A0935A Assistance with Respiratory Ventilation, Less than 24 Consecutive Hours, High Flow/Velocity Cannula (ICD-10-PCS; 2024-01-24)
PROC: 5A09357 Assistance with Respiratory Ventilation, Less than 24 Consecutive Hours, Continuous Positive Airway Pressure (ICD-10-PCS; 2024-01-25)
PROC: 5A0935A Assistance with Respiratory Ventilation, Less than 24 Consecutive Hours, High Flow/Velocity Cannula (ICD-10-PCS; 2024-01-25)
PROC: 5A09357 Assistance with Respiratory Ventilation, Less than 24 Consecutive Hours, Continuous Positive Airway Pressure (ICD-10-PCS; 2024-01-26)
PROC: 5A0935A Assistance with Respiratory Ventilation, Less than 24 Consecutive Hours, High Flow/Velocity Cannula (ICD-10-PCS; 2024-01-26)
PROC: 5A0945A Assistance with Respiratory Ventilation, 24-96 Consecutive Hours, High Flow/Velocity Cannula (ICD-10-PCS; 2024-01-27)
PROC: 5A0935A Assistance with Respiratory Ventilation, Less than 24 Consecutive Hours, High Flow/Velocity Cannula (ICD-10-PCS; 2024-01-29)
DX: J84.114 Acute interstitial pneumonitis (principal); J96.21 Acute and chronic respiratory failure with hypoxia; J96.22 Acute and chronic respiratory failure with hypercapnia; J44.1 Chronic obstructive pulmonary disease with (acute) exacerbation; E44.0 Moderate protein-calorie malnutrition; Z68.1 Body mass index [BMI] 19.9 or less, adult; E87.3 Alkalosis; J84.82 Adult pulmonary Langerhans cell histiocytosis; Z66 Do not resuscitate; R07.89 Other chest pain; K27.9 Peptic ulcer, site unspecified, unspecified as acute or chronic, without hemorrhage or perforation; I73.00 Raynaud's syndrome without gangrene; D64.9 Anemia, unspecified; F17.210 Nicotine dependence, cigarettes, uncomplicated; F32.9 Major depressive disorder, single episode, unspecified; F41.1 Generalized anxiety disorder; Z71.6 Tobacco abuse counseling; Z51.5 Encounter for palliative care; Z90.710 Acquired absence of both cervix and uterus; Z90.49 Acquired absence of other specified parts of digestive tract; Z82.49 Family history of ischemic heart disease and other diseases of the circulatory system; Z91.030 Bee allergy status; Z79.51 Long term (current) use of inhaled steroids; Z79.899 Other long term (current) drug therapy; Z98.891 History of uterine scar from previous surgery; Z82.5 Family history of asthma and other chronic lower respiratory diseases

== ENCOUNTER 2024-05-31 21:05 | Inpatient (IN) | payer BC ==
[~2024-05-31] VITALS: Ht 152.4 cm; Wt 48.7 kg
[~2024-05-31 21:05] MED LIST changes: +MUCUS RELIEF E600 MG PO; +ONDANSETRON HYDR4 MG PO; +YUPELRI175 MCG/3 INH
[2024-05-31 21:11] VITALS: BP 133/96
[2024-05-31] MEDS ORDERED: Albuterol Sulf/Ipratropium 3 ML VIAL NEB ONE (21:30)
[2024-05-31 21:53] LABS: BASO # 0.1 10*3/uL (0.0-0.1); BASO % 1.2 % (0.0-1.0); EOS # 0.9 10*3/uL (0.0-0.4); EOS % 10.7 % (1.0-4.0); HEMATOCRIT 34.6 % (37.0-47.0); MEAN CELL VOLUME 89.4 fl (81.0-99.0); MEAN CORPUSCULAR HGB 24.5 pg (27.0-31.0); MEAN CORPUSCULAR HGB CONC 27.5 g/dl (33.0-37.0); MEAN PLATELET VOLUME 9.8 fl (9.6-12.3); MONO # 0.8 10*3/uL (0.1-1.0); MONO % 9.1 % (3.0-9.0); NEUT # 4.3 10*3/uL (2.3-7.9); NEUT % 52.1 % (47.0-73.0); PLATELET COUNT AUTOMATED 449 10*3/uL (130-400); RED BLOOD COUNT 3.87 10*6/uL (4.10-5.10); RED CELL DISTRI WIDTH 15.1 % (0-14.5); WHITE BLOOD COUNT 8.2 10*3/uL (4.8-10.8)
[2024-05-31 22:13] LABS: BUN 10 mg/dl (9-23); CHLORIDE 99 mmol/L (98-107); POTASSIUM 3.5 mmol/L (3.4-5.1)
[2024-05-31] MEDS ORDERED: methylPREDNISolone sod succ 40 MG VIAL IV SCH (23:45)
[2024-05-31] MEDS ORDERED: cefTRIAXone Sodium 1 GM in SYRINGE INFUSION 10 ML IV SCH (23:45)
[2024-05-31] MEDS ORDERED: Albuterol Sulf/Ipratropium 3 ML VIAL NEB PRN (23:45)
[2024-05-31] MEDS ORDERED: AZITHROMYCIN 250 MG TAB PO SCH (23:45)
[2024-05-31 23:53] VITALS: BP 135/78
[2024-06-01] MEDS ORDERED: BENZOCAINE 20% 11.9 GM GEL T PRN (00:15)
[2024-06-01 03:48] VITALS: BP 131/82
[2024-06-01 04:05] VITALS: BP 101/64
[2024-06-01 06:12] LABS: ACT PARTIAL THROMBO TIME 28.6 SECONDS (20.0-32.1)
[2024-06-01 06:13] LABS: ALKALINE PHOSPHATASE 82 U/L (46-116); BUN 9 mg/dl (9-23); CHLORIDE 99 mmol/L (98-107); HEMATOCRIT 34.6 % (37.0-47.0); MEAN CELL VOLUME 89.4 fl (81.0-99.0); MEAN CORPUSCULAR HGB 24.8 pg (27.0-31.0); MEAN CORPUSCULAR HGB CONC 27.7 g/dl (33.0-37.0); MEAN PLATELET VOLUME 10.6 fl (9.6-12.3); PLATELET COUNT AUTOMATED 405 10*3/uL (130-400); POTASSIUM 4.4 mmol/L (3.4-5.1); RED BLOOD COUNT 3.87 10*6/uL (4.10-5.10); RED CELL DISTRI WIDTH 15.2 % (0-14.5); SGPT/ALT 13 U/L (5-49); TOTAL PROTEIN 6.3 gm/dL (6.0-8.0)
[2024-06-01 06:15] LABS: MANUAL DIFF REFLEX YES
[2024-06-01 06:50] LABS: TOTAL CELLS COUNTED 100 #CELLS
[2024-06-01 06:51] LABS: OVALOCYTES FEW; PLATELET SUFFICIENCY HIGH (NORMAL); POLYCHROMASIA SLIGHT; TARGET CELLS FEW
[2024-06-01] MEDS ORDERED: Albuterol Sulf/Ipratropium 3 ML VIAL NEB SCH (07:42)
[2024-06-01 08:00] VITALS: BP 104/65
[2024-06-01] MEDS ORDERED: ACETAMINOPHEN 325 MG TAB PO PRN (08:05)
[2024-06-01] MEDS ORDERED: Ondansetron Hydrochloride 4 MG/2 ML VIAL IV PRN (08:40)
[2024-06-01] MEDS ORDERED: hydrOXYzine hydrochloride 50 MG/ML VIAL IM PRN (08:40)
[2024-06-01] MEDS ORDERED: methylPREDNISolone sod succ 40 MG VIAL IV SCH (10:00)
[2024-06-01] MEDS ORDERED: BUPRENORPHINE HCL/NALOXONE 8 MG-2 MG SL TABLET SL SCH (10:00)
[2024-06-01] MEDS ORDERED: GUAIFENESIN 600 MG TAB ER PO SCH (10:00)
[2024-06-01] MEDS ORDERED: Pantoprazole Sodium 40 MG TAB PO SCH (10:00)
[2024-06-01] MEDS ORDERED: Z-BEC PO SCH (10:00)
[2024-06-01] MEDS ORDERED: Enoxaparin Sodium 40 MG/0.4 ML SYR SC SCH (10:00)
[2024-06-01] MEDS ORDERED: Levothyroxine Sodium 25 MCG TAB PO SCH (10:00)
[2024-06-01 12:00] VITALS: BP 112/60
[2024-06-01] MEDS ORDERED: busPIRone Hydrochloride 15 MG TAB PO SCH (14:00)
[2024-06-01] MEDS ORDERED: GABAPENTIN 600 MG TAB PO SCH (14:00)
[2024-06-01 16:00] VITALS: BP 105/60
[2024-06-01 20:00] VITALS: BP 111/94
[2024-06-01] MEDS ORDERED: diphenhydrAMINE HCL;LIDO HCL 1 OZ OZ PO PRN (20:40)
[2024-06-02] VITALS: BP 123/70
[2024-06-02] MEDS ORDERED: Ketorolac Tromethamine 15 MG/ML VIAL IV ONE (00:40)
[2024-06-02 06:34] LABS: BASO % 0.2 % (0.0-1.0); HEMATOCRIT 32.4 % (37.0-47.0); MEAN CORPUSCULAR HGB 24.7 pg (27.0-31.0); MEAN CORPUSCULAR HGB CONC 27.8 g/dl (33.0-37.0); MEAN PLATELET VOLUME 10.8 fl (9.6-12.3); MONO # 0.2 10*3/uL (0.1-1.0); MONO % 2.5 % (3.0-9.0); NEUT % 86.7 % (47.0-73.0); PLATELET COUNT AUTOMATED 377 10*3/uL (130-400); RED BLOOD COUNT 3.64 10*6/uL (4.10-5.10); RED CELL DISTRI WIDTH 15.7 % (0-14.5); WHITE BLOOD COUNT 8.1 10*3/uL (4.8-10.8)
[2024-06-02 06:41] LABS: BUN 13 mg/dl (9-23); CHLORIDE 99 mmol/L (98-107); POTASSIUM 4.3 mmol/L (3.4-5.1)
[2024-06-02 08:00] VITALS: BP 111/59
[2024-06-02] MEDS ORDERED: ATARAX,VISTARIL10 MG PO (10:20)
[2024-06-02 12:00] VITALS: BP 148/91
[2024-06-02] MEDS ORDERED: hydrOXYzine pamoate 25 MG CAP PO PRN (12:00)
[2024-06-02 16:00] VITALS: BP 108/56
[2024-06-02 20:00] VITALS: BP 117/69
[2024-06-03] VITALS: BP 105/55
[2024-06-03 04:20] LABS: BASO % 0.3 % (0.0-1.0); HEMATOCRIT 31.6 % (37.0-47.0); MEAN CELL VOLUME 89.3 fl (81.0-99.0); MEAN CORPUSCULAR HGB 24.6 pg (27.0-31.0); MEAN CORPUSCULAR HGB CONC 27.5 g/dl (33.0-37.0); MONO # 0.4 10*3/uL (0.1-1.0); MONO % 3.6 % (3.0-9.0); NEUT % 86.5 % (47.0-73.0); PLATELET COUNT AUTOMATED 391 10*3/uL (130-400); RED BLOOD COUNT 3.54 10*6/uL (4.10-5.10); RED CELL DISTRI WIDTH 15.9 % (0-14.5); WHITE BLOOD COUNT 10.4 10*3/uL (4.8-10.8)
[2024-06-03 04:48] LABS: BUN 12 mg/dl (9-23); CHLORIDE 102 mmol/L (98-107); POTASSIUM 4.4 mmol/L (3.4-5.1)
[2024-06-03 08:00] VITALS: BP 124/79
[2024-06-03 11:52] VITALS: BP 152/80
[2024-06-03 16:00] VITALS: BP 136/69
[2024-06-03 20:00] VITALS: BP 176/71
[2024-06-04] VITALS: BP 153/87
[2024-06-04 06:28] LABS: BASO % 0.3 % (0.0-1.0); HEMATOCRIT 32.8 % (37.0-47.0); MEAN CELL VOLUME 88.6 fl (81.0-99.0); MEAN CORPUSCULAR HGB 24.6 pg (27.0-31.0); MEAN CORPUSCULAR HGB CONC 27.7 g/dl (33.0-37.0); MEAN PLATELET VOLUME 10.5 fl (9.6-12.3); MONO # 0.4 10*3/uL (0.1-1.0); MONO % 3.1 % (3.0-9.0); NEUT # 9.9 10*3/uL (2.3-7.9); NEUT % 83.2 % (47.0-73.0); PLATELET COUNT AUTOMATED 386 10*3/uL (130-400); WHITE BLOOD COUNT 11.9 10*3/uL (4.8-10.8)
[2024-06-04 07:23] LABS: BUN 12 mg/dl (9-23); CHLORIDE 101 mmol/L (98-107); POTASSIUM 4.3 mmol/L (3.4-5.1)
[2024-06-04 08:00] VITALS: BP 132/78
[2024-06-04 12:00] VITALS: BP 148/88
[2024-06-04 14:05] LABS: HSV-2 DNA Negative (Negative)
[2024-06-04 16:00] VITALS: BP 137/78
[2024-06-05 06:05] LABS: HSV-2 DNA Negative (Negative)
== END 2024-06-04 18:18 | disposition home or self-care (01) | DRG 189 ==
LOC: ED 21:05 → 5E 23:10 → EDHOLD 23:10 → 5E 06-01 03:41
PROVIDERS: Nurse Practitioner Family; Student in an Organized Health Care Education/Training Program; ADMIT Internal Medicine; ATTEND Internal Medicine
DX: J96.01 Acute respiratory failure with hypoxia (principal); J44.1 Chronic obstructive pulmonary disease with (acute) exacerbation; J84.82 Adult pulmonary Langerhans cell histiocytosis; J96.02 Acute respiratory failure with hypercapnia; K12.1 Other forms of stomatitis; D64.9 Anemia, unspecified; K27.9 Peptic ulcer, site unspecified, unspecified as acute or chronic, without hemorrhage or perforation; S09.90XA Unspecified injury of head, initial encounter; Z20.822 Contact with and (suspected) exposure to COVID-19; I73.00 Raynaud's syndrome without gangrene; M79.7 Fibromyalgia; F32.9 Major depressive disorder, single episode, unspecified; F41.1 Generalized anxiety disorder; E03.9 Hypothyroidism, unspecified; W07.XXXA Fall from chair, initial encounter; Y93.89 Activity, other specified; Y92.89 Other specified places as the place of occurrence of the external cause; Y99.8 Other external cause status; Z90.49 Acquired absence of other specified parts of digestive tract; Z90.711 Acquired absence of uterus with remaining cervical stump; Z83.6 Family history of other diseases of the respiratory system; Z82.3 Family history of stroke; Z91.030 Bee allergy status; Z79.899 Other long term (current) drug therapy

== ENCOUNTER 2024-07-17 16:13 | Inpatient (IN) | payer BC ==
[2024-07-17] VITALS (11 sets, daily range): BP systolic 96–136; BP diastolic 51–71
[~2024-07-17] VITALS: Ht 152.4 cm; Wt 46.3 kg
[2024-07-17] MEDS ORDERED: FAMOTIDINE 50 ML IV ONE (16:35)
[2024-07-17] MEDS ORDERED: SODIUM CHLORIDE 0.9% 1,000 ML IV ONE ×2 (16:35→22:35)
[2024-07-17] MEDS ORDERED: Dexamethasone Sodium Phospha 20 MG/5 ML VIAL IV ONE (16:35)
[2024-07-17] MEDS ORDERED: diphenhydrAMINE hydrochloride 50 MG/ML VIAL IV ONE (16:35)
[2024-07-17 16:51] LABS: BASO # 0.1 10*3/uL (0.0-0.1); BASO % 0.4 % (0.0-1.0); EOS # 0.3 10*3/uL (0.0-0.4); EOS % 2.1 % (1.0-4.0); HEMATOCRIT 29.9 % (37.0-47.0); MEAN CELL VOLUME 90.1 fl (81.0-99.0); MEAN CORPUSCULAR HGB 23.8 pg (27.0-31.0); MEAN CORPUSCULAR HGB CONC 26.4 g/dl (33.0-37.0); MONO % 6.7 % (3.0-9.0); NEUT # 12.2 10*3/uL (2.3-7.9); NEUT % 78.3 % (47.0-73.0); PLATELET COUNT AUTOMATED 537 10*3/uL (130-400); RED BLOOD COUNT 3.32 10*6/uL (4.10-5.10); RED CELL DISTRI WIDTH 16.3 % (0-14.5); WHITE BLOOD COUNT 15.6 10*3/uL (4.8-10.8)
[2024-07-17 17:18] LABS: ALKALINE PHOSPHATASE 82 U/L (46-116); BUN 10 mg/dl (9-23); CHLORIDE 95 mmol/L (98-107); POTASSIUM 3.9 mmol/L (3.4-5.1); SGPT/ALT 40 U/L (5-49); TOTAL PROTEIN 5.5 gm/dL (6.0-8.0)
[2024-07-17 17:55] LABS: ABG O2 SATURATION 96.3 % (94.0-98.0); ARTERIAL BLOOD GAS PO2 90.7 mmHg (83.0-108.0)
[2024-07-17 18:00] LABS: ARTERIAL BLOOD GAS PH 7.224 (7.350-7.450)
[2024-07-17 18:01] LABS: ABG BASE EXCESS 8.8 mmol/L (-2.0-3.0)
[2024-07-17] MEDS ORDERED: Midazolam Hydrochloride 2 MG/2 ML VIAL IV ONE (18:15)
[2024-07-17] MEDS ORDERED: Ondansetron Hydrochloride 4 MG/2 ML VIAL IV ONE (18:15)
[2024-07-17] MEDS ORDERED: Ondansetron Hydrochloride 4 MG/2 ML VIAL IV PRN (20:15)
[2024-07-17] MEDS ORDERED: Magnesium Hydroxide 30 ML UDC PO PRN (20:15)
[2024-07-17] MEDS ORDERED: BISACODYL 5 MG TAB PO PRN (20:15)
[2024-07-17] MEDS ORDERED: BISACODYL 10 MG SUPP R PRN (20:15)
[2024-07-17] MEDS ORDERED: ACETAMINOPHEN 650 MG SUPP R PRN (20:15)
[2024-07-17] MEDS ORDERED: ACETAMINOPHEN 325 MG TAB PO PRN (20:15)
[2024-07-17] MEDS ORDERED: Acetaminophen/Hydrocodone 5 MG/325 MG TABLET PO PRN (20:15)
[2024-07-17] MEDS ORDERED: Albuterol Sulf/Ipratropium 3 ML VIAL NEB SCH (20:25)
[2024-07-17] MEDS ORDERED: diphenhydrAMINE hydrochloride 50 MG/ML VIAL IV PRN (20:40)
[2024-07-17] MEDS ORDERED: AZITHROMYCIN 250 ML IV SCH (21:00)
[2024-07-17] MEDS ORDERED: hydrOXYzine hydrochloride 10 MG TAB PO PRN (21:45)
[2024-07-17] MEDS ORDERED: Melatonin 5 MG TABLET PO PRN (21:50)
[2024-07-17] MEDS ORDERED: FAMOTIDINE 20 MG in SYRINGE INFUSION 8 ML IV SCH (22:00)
[2024-07-17] MEDS ORDERED: cefTRIAXone Sodium 1 GM in SYRINGE INFUSION 10 ML IV SCH (22:00)
[2024-07-17] MEDS ORDERED: BUPRENORPHINE HCL/NALOXONE 8 MG-2 MG SL TABLET SL SCH (22:00)
[2024-07-17] MEDS ORDERED: GUAIFENESIN 600 MG TAB ER PO SCH (22:00)
[2024-07-17] MEDS ORDERED: GABAPENTIN 600 MG TAB PO SCH (22:00)
[2024-07-17] MEDS ORDERED: busPIRone Hydrochloride 15 MG TAB PO SCH (22:00)
[2024-07-18] VITALS: BP 99/60
[2024-07-18 04:00] VITALS: BP 101/58
[2024-07-18 05:25] LABS: ALKALINE PHOSPHATASE 87 U/L (46-116); BUN 13 mg/dl (9-23); CHLORIDE 96 mmol/L (98-107); CHOLESTEROL 178 mg/dL (<200); LDL CHOLESTEROL 95 mg/dL (9-159); POTASSIUM 4.5 mmol/L (3.4-5.1); SGPT/ALT 37 U/L (5-49); TOTAL PROTEIN 5.9 gm/dL (6.0-8.0); TRIGLYCERIDES 73 mg/dl (<150)
[2024-07-18 06:11] LABS: HEMATOCRIT 27.9 % (37.0-47.0); MEAN CELL VOLUME 91.2 fl (81.0-99.0); MEAN CORPUSCULAR HGB 23.9 pg (27.0-31.0); MEAN CORPUSCULAR HGB CONC 26.2 g/dl (33.0-37.0); MEAN PLATELET VOLUME 9.6 fl (9.6-12.3); PLATELET COUNT AUTOMATED 566 10*3/uL (130-400); RED BLOOD COUNT 3.06 10*6/uL (4.10-5.10); RED CELL DISTRI WIDTH 16.3 % (0-14.5); WHITE BLOOD COUNT 10.1 10*3/uL (4.8-10.8)
[2024-07-18 06:15] LABS: MANUAL DIFF REFLEX YES
[2024-07-18 06:41] LABS: TOTAL CELLS COUNTED 100 #CELLS
[2024-07-18 06:42] LABS: PLATELET SUFFICIENCY HIGH (NORMAL); POLYCHROMASIA SLIGHT; STOMATOCYTE FEW; TARGET CELLS FEW
[2024-07-18 07:21] LABS: ABG O2 SATURATION 96.9 % (94.0-98.0); ARTERIAL BLOOD GAS PH 7.272 (7.350-7.450); ARTERIAL BLOOD GAS PO2 94.1 mmHg (83.0-108.0)
[2024-07-18 07:24] LABS: ABG BASE EXCESS 8.8 mmol/L (-2.0-3.0)
[2024-07-18] MEDS ORDERED: Pantoprazole Sodium 40 MG TAB PO SCH (07:30)
[2024-07-18 08:00] VITALS: BP 110/72
[2024-07-18 08:07] LABS: VITAMIN D, 25-HYDROXY 26.3 ng/mL (30-100)
[2024-07-18] MEDS ORDERED: Enoxaparin Sodium 40 MG/0.4 ML SYR SC SCH (10:00)
[2024-07-18] MEDS ORDERED: methylPREDNISolone sod succ 40 MG VIAL IV SCH (10:00)
[2024-07-18 11:54] VITALS: BP 120/42
[2024-07-18 15:57] LABS: BILIRUBIN Negative (Negative); BLOOD Negative (Negative); CLARITY Clear (Clear); COLOR Yellow (Yellow); GLUCOSE Negative (Negative); KETONE Negative (Negative); LEUKO ESTERASE Negative (Negative); NITRITE Negative (Negative); PH 6.5 (4.5-8.0); SPECIFIC GRAVITY 1.015 (1.001-1.030); UROBILINOGEN 0.2 E.U./dl (0.0-1.0)
[2024-07-18 16:00] VITALS: BP 109/60
[2024-07-18 16:20] LABS: BACTERIA TRACE
[2024-07-18] MEDS ORDERED: predniSONE 20 MG TAB PO SCH (17:00)
[2024-07-18] MEDS ORDERED: LORazepam 1 MG TAB PO ONE (18:15)
[2024-07-18 20:00] VITALS: BP 111/51
[2024-07-19] VITALS: BP 92/42; BP 92/43
[2024-07-19 02:43] VITALS: BP 98/64
[2024-07-19] MEDS ORDERED: LORazepam 1 MG TAB PO ONE (05:10)
[2024-07-19 06:12] LABS: BASO % 0.3 % (0.0-1.0); EOS # 0.1 10*3/uL (0.0-0.4); EOS % 0.4 % (1.0-4.0); HEMATOCRIT 26.8 % (37.0-47.0); MEAN CELL VOLUME 89.3 fl (81.0-99.0); MEAN CORPUSCULAR HGB CONC 26.9 g/dl (33.0-37.0); MEAN PLATELET VOLUME 9.4 fl (9.6-12.3); MONO # 0.8 10*3/uL (0.1-1.0); MONO % 6.6 % (3.0-9.0); NEUT # 9.5 10*3/uL (2.3-7.9); NEUT % 79.2 % (47.0-73.0); PLATELET COUNT AUTOMATED 573 10*3/uL (130-400); RED CELL DISTRI WIDTH 16.3 % (0-14.5)
[2024-07-19 08:00] VITALS: BP 119/59
[2024-07-19] MEDS ORDERED: Cholecalciferol 5,000 IU CAP (125 MCG) PO SCH (10:00)
[2024-07-19 12:00] VITALS: BP 103/64
[2024-07-19] MEDS ORDERED: ALPRAZolam 0.25 MG TAB PO PRN (15:35)
[2024-07-19 16:00] VITALS: BP 131/63
[2024-07-19] MEDS ORDERED: cloNIDine Hydrochloride 0.1 MG TAB PO ONE (16:15)
[2024-07-19 20:00] VITALS: BP 137/72
[2024-07-19] MEDS ORDERED: hydrOXYzine pamoate 25 MG CAP PO PRN (23:17)
[2024-07-20] VITALS (12 sets, daily range): BP systolic 109–145; BP diastolic 62–86
[2024-07-20 06:48] LABS: HEMATOCRIT 25.2 % (37.0-47.0); MEAN CELL VOLUME 87.5 fl (81.0-99.0); MEAN CORPUSCULAR HGB CONC 27.4 g/dl (33.0-37.0); MEAN PLATELET VOLUME 9.6 fl (9.6-12.3); PLATELET COUNT AUTOMATED 551 10*3/uL (130-400); RED BLOOD COUNT 2.88 10*6/uL (4.10-5.10); RED CELL DISTRI WIDTH 16.4 % (0-14.5); WHITE BLOOD COUNT 11.4 10*3/uL (4.8-10.8)
[2024-07-20 06:53] LABS: MANUAL DIFF REFLEX YES
[2024-07-20 07:27] LABS: OVALOCYTES FEW; PLATELET SUFFICIENCY HIGH (NORMAL); POLYCHROMASIA SLIGHT; TARGET CELLS FEW; TOTAL CELLS COUNTED 100 #CELLS
[2024-07-20 07:28] LABS: STOMATOCYTE FEW
[2024-07-20 07:55] LABS: BUN 12 mg/dl (9-23); CHLORIDE 96 mmol/L (98-107); POTASSIUM 3.6 mmol/L (3.4-5.1)
[2024-07-20] MEDS ORDERED: SODIUM CHLORIDE 0.9% 500 ML IV SCH (07:55)
[2024-07-20] MEDS ORDERED: SODIUM CHLORIDE 0.9% 500 ML IV ONE (08:03)
[2024-07-20 17:12] LABS: BASO # 0.1 10*3/uL (0.0-0.1); BASO % 0.4 % (0.0-1.0); EOS % 0.3 % (1.0-4.0); HEMATOCRIT 30.8 % (37.0-47.0); MEAN CORPUSCULAR HGB 25.1 pg (27.0-31.0); MEAN CORPUSCULAR HGB CONC 28.9 g/dl (33.0-37.0); MONO # 0.7 10*3/uL (0.1-1.0); NEUT # 9.5 10*3/uL (2.3-7.9); NEUT % 82.7 % (47.0-73.0); PLATELET COUNT AUTOMATED 541 10*3/uL (130-400); RED BLOOD COUNT 3.54 10*6/uL (4.10-5.10); RED CELL DISTRI WIDTH 15.9 % (0-14.5); WHITE BLOOD COUNT 11.4 10*3/uL (4.8-10.8)
[2024-07-21] VITALS: BP 124/77
[2024-07-21 06:04] LABS: BUN 11 mg/dl (9-23); CHLORIDE 98 mmol/L (98-107); POTASSIUM 3.8 mmol/L (3.4-5.1)
[2024-07-21 06:16] LABS: BASO # 0.1 10*3/uL (0.0-0.1); BASO % 0.6 % (0.0-1.0); EOS # 0.6 10*3/uL (0.0-0.4); EOS % 5.7 % (1.0-4.0); HEMATOCRIT 31.1 % (37.0-47.0); MEAN CELL VOLUME 88.9 fl (81.0-99.0); MEAN CORPUSCULAR HGB 24.6 pg (27.0-31.0); MEAN CORPUSCULAR HGB CONC 27.7 g/dl (33.0-37.0); MEAN PLATELET VOLUME 10.3 fl (9.6-12.3); MONO # 1.1 10*3/uL (0.1-1.0); MONO % 9.6 % (3.0-9.0); NEUT # 6.6 10*3/uL (2.3-7.9); NEUT % 59.2 % (47.0-73.0); NUCLEATED RED BLOOD CELL 0.2 % (0.0-0.0); PLATELET COUNT AUTOMATED 480 10*3/uL (130-400); RED CELL DISTRI WIDTH 16.4 % (0-14.5); WHITE BLOOD COUNT 11.2 10*3/uL (4.8-10.8)
[2024-07-21 08:00] VITALS: BP 142/118
[2024-07-21] MEDS ORDERED: predniSONE 10 MG TAB PO SCH (10:00)
[2024-07-21] MEDS ORDERED: predniSONE 20 MG TAB PO SCH (10:00)
[2024-07-21 12:00] VITALS: BP 138/63; BP 142/118
[2024-07-21 16:00] VITALS: BP 121/72
[2024-07-21 20:00] VITALS: BP 124/78
[2024-07-22] VITALS: BP 120/55
[2024-07-22 08:00] VITALS: BP 123/68
[2024-07-22 12:00] VITALS: BP 159/77
[2024-07-22 16:00] VITALS: BP 127/76
[2024-07-22 20:00] VITALS: BP 113/81
[2024-07-23] VITALS: BP 149/76
[2024-07-23 08:00] VITALS: BP 127/66
[2024-07-23 12:00] VITALS: BP 120/64
[2024-07-23] MEDS ORDERED: XANAX0.5 MG PO (12:17)
[2024-07-23 16:00] VITALS: BP 126/62
[2024-07-23 20:00] VITALS: BP 115/66
[2024-07-24] VITALS: BP 116/64
[2024-07-24 06:12] LABS: BASO # 0.1 10*3/uL (0.0-0.1); BASO % 0.5 % (0.0-1.0); EOS # 0.6 10*3/uL (0.0-0.4); EOS % 5.2 % (1.0-4.0); HEMATOCRIT 32.6 % (37.0-47.0); MEAN CELL VOLUME 88.6 fl (81.0-99.0); MEAN CORPUSCULAR HGB 24.5 pg (27.0-31.0); MEAN CORPUSCULAR HGB CONC 27.6 g/dl (33.0-37.0); MEAN PLATELET VOLUME 9.1 fl (9.6-12.3); MONO # 0.8 10*3/uL (0.1-1.0); MONO % 6.6 % (3.0-9.0); NEUT % 64.7 % (47.0-73.0); PLATELET COUNT AUTOMATED 545 10*3/uL (130-400); RED BLOOD COUNT 3.68 10*6/uL (4.10-5.10); RED CELL DISTRI WIDTH 16.8 % (0-14.5); WHITE BLOOD COUNT 12.4 10*3/uL (4.8-10.8)
[2024-07-24 06:25] LABS: BUN 13 mg/dl (9-23); CHLORIDE 97 mmol/L (98-107); POTASSIUM 4.7 mmol/L (3.4-5.1)
[2024-07-24 08:00] VITALS: BP 111/62
[2024-07-24] MEDS ORDERED: Ketorolac Tromethamine 30 MG/ML VIAL IV ONE (08:30)
[2024-07-24] MEDS ORDERED: predniSONE 10 MG TAB PO SCH (10:00)
[2024-07-24] MEDS ORDERED: PREDNISONE10 MG PO (11:47)
[2024-07-24] MEDS ORDERED: VITAMIN D3125 MC1 PO (11:47)
[2024-07-24] MEDS ORDERED: ALPRAZOLAM0.25 M2 PO (11:47)
[2024-07-24 12:00] VITALS: BP 129/57; BP 138/56
[2024-07-27] MEDS ORDERED: predniSONE 20 MG TAB PO SCH (10:00)
[2024-07-30] MEDS ORDERED: predniSONE 10 MG TAB PO SCH (10:00)
== END 2024-07-24 15:00 | DRG 871 ==
LOC: ED 16:13 → EDHOLD 18:22 → ICCU 18:22 → 4E 18:22 → ICCU 19:38 → 4E 07-18 11:47
PROVIDERS: Internal Medicine; Registered Nurse; Student in an Organized Health Care Education/Training Program; ADMIT Internal Medicine; ATTEND Internal Medicine
PROC: 30233K1 Transfusion of Nonautologous Frozen Plasma into Peripheral Vein, Percutaneous Approach (ICD-10-PCS; principal; 2024-07-17)
PROC: 5A09357 Assistance with Respiratory Ventilation, Less than 24 Consecutive Hours, Continuous Positive Airway Pressure (ICD-10-PCS; 2024-07-17)
PROC: 5A09357 Assistance with Respiratory Ventilation, Less than 24 Consecutive Hours, Continuous Positive Airway Pressure (ICD-10-PCS; 2024-07-18)
PROC: 5A09357 Assistance with Respiratory Ventilation, Less than 24 Consecutive Hours, Continuous Positive Airway Pressure (ICD-10-PCS; 2024-07-19)
PROC: 30233N1 Transfusion of Nonautologous Red Blood Cells into Peripheral Vein, Percutaneous Approach (ICD-10-PCS; 2024-07-20)
PROC: 5A09357 Assistance with Respiratory Ventilation, Less than 24 Consecutive Hours, Continuous Positive Airway Pressure (ICD-10-PCS; 2024-07-20)
PROC: 5A09357 Assistance with Respiratory Ventilation, Less than 24 Consecutive Hours, Continuous Positive Airway Pressure (ICD-10-PCS; 2024-07-22)
PROC: 5A09357 Assistance with Respiratory Ventilation, Less than 24 Consecutive Hours, Continuous Positive Airway Pressure (ICD-10-PCS; 2024-07-23)
DX: A41.9 Sepsis, unspecified organism (principal); J96.21 Acute and chronic respiratory failure with hypoxia; J96.22 Acute and chronic respiratory failure with hypercapnia; J44.1 Chronic obstructive pulmonary disease with (acute) exacerbation; E44.1 Mild protein-calorie malnutrition; J84.82 Adult pulmonary Langerhans cell histiocytosis; M48.54XA Collapsed vertebra, not elsewhere classified, thoracic region, initial encounter for fracture; Z68.1 Body mass index [BMI] 19.9 or less, adult; K14.1 Geographic tongue; T78.3XXA Angioneurotic edema, initial encounter; J98.4 Other disorders of lung; D64.9 Anemia, unspecified; M79.7 Fibromyalgia; D75.839 Thrombocytosis, unspecified; E87.8 Other disorders of electrolyte and fluid balance, not elsewhere classified; F41.1 Generalized anxiety disorder; E03.9 Hypothyroidism, unspecified; F17.210 Nicotine dependence, cigarettes, uncomplicated; F32.9 Major depressive disorder, single episode, unspecified; I73.00 Raynaud's syndrome without gangrene; K14.8 Other diseases of tongue; Z88.8 Allergy status to other drugs, medicaments and biological substances; Z79.899 Other long term (current) drug therapy; Z79.01 Long term (current) use of anticoagulants; Z79.2 Long term (current) use of antibiotics; Z98.891 History of uterine scar from previous surgery; Z90.49 Acquired absence of other specified parts of digestive tract; Z90.711 Acquired absence of uterus with remaining cervical stump; Z82.49 Family history of ischemic heart disease and other diseases of the circulatory system; Z82.5 Family history of asthma and other chronic lower respiratory diseases; Z80.8 Family history of malignant neoplasm of other organs or systems; X58.XXXA Exposure to other specified factors, initial encounter; Y93.89 Activity, other specified; Y92.89 Other specified places as the place of occurrence of the external cause; Y99.8 Other external cause status

== ENCOUNTER 2024-09-23 11:30 | Emergency (ER) | payer BC ==
[~2024-09-23] VITALS: Ht 167.6 cm; Wt 42.6 kg
[~2024-09-23 11:30] MED LIST changes: +HYDROXYZINE PAM25 M1 PO; +Ipratropium Brom3 ML INH; +OHTUVAYRE NEB; +Synthroid,Levo25 MCG PO; +VITAMIN D3125 MC1 PO; +XANAX0.5 MG PO
[2024-09-23 11:40] VITALS: BP 100/60
[2024-09-23] MEDS ORDERED: Acetaminophen/Hydrocodone 5 MG/325 MG TABLET PO ONE (12:10)
[2024-09-23] MEDS ORDERED: IBUPROFEN 600 MG TAB PO ONE (12:10)
== END 2024-09-23 13:08 | disposition home or self-care (01) ==
LOC: ED 11:30
DX: S83.412A Sprain of medial collateral ligament of left knee, initial encounter (principal); Z91.030 Bee allergy status; Z79.899 Other long term (current) drug therapy; Z98.890 Other specified postprocedural states; Z90.49 Acquired absence of other specified parts of digestive tract; Z90.89 Acquired absence of other organs; Z87.891 Personal history of nicotine dependence; W01.0XXA Fall on same level from slipping, tripping and stumbling without subsequent striking against object, initial encounter; Y93.89 Activity, other specified; Y92.89 Other specified places as the place of occurrence of the external cause; Y99.8 Other external cause status